=== PATIENT | female | born 1985 | race Caucasian/White ===

== ENCOUNTER → 2016-10-07 | Outpatient (CLI) | payer OTHER ==
[~2016-10-07] MED LIST: BUPR8MIS SL; FAMO20TA9 PO; LEVE500T13 PO; METH10SO PO; MIRT30TA5 PO; MTR600X PO; PRENTAB26 PO
[2016-10-07 12:15] LABS: COMPLETE YES; EOS % 2.3 %; HEMATOCRIT 32.7 % (37-47); IG% 0.5 %; LYMPH % 28.9 %; LYMPH ABS # 1.27 K/uL (1.2-3.4); MEAN CELL VOLUME 93.2 fL (80-100); MEAN CORPUSCULAR HEMOGLOBIN 33.3 pg (25-34); MEAN CORPUSCULAR HGB CONC 35.8 g/dl (32-36); MEAN PLATELET VOLUME 10.2 fL (7.4-10.4); MONO % 7.3 %; PLATELET COUNT 251 K/uL (130-400); RED BLOOD COUNT 3.51 M/uL (4.2-5.4); WHITE BLOOD COUNT 4.39 K/uL (4.8-10.8)
[2016-10-07 14:09] LABS: URINE APPEARANCE CLEAR (CLEAR); URINE BILIRUBIN NEG (NEG); URINE COLOR YELLOW; URINE NITRITE NEG (NEG); URINE SPECIFIC GRAVITY 1.019 (1.000-1.030); UROBILINOGEN NEG (NEG)
[2016-10-07 14:27] LABS: MANUAL MICROSCOPIC REQUIRED? NO; REVIEW REQ? NO
[2016-10-11 10:23] LABS: CHLAMYDIA TRACH RNA*** NOT DETECTED (NOT DETECTED); GC (NEIS GONORRHOEAE)RNA** NOT DETECTED (NOT DETECTED)
[2016-10-11 14:34] LABS: HEPATITIS C RNA TMA QUAL Not detected
== END | disposition home or self-care (01) ==
LOC: C.LAB1850 10:56
PROVIDERS: ATTEND Obstetrics & Gynecology
DX: O09.899 Supervision of other high risk pregnancies, unspecified trimester (principal)

== ENCOUNTER → 2016-11-16 | Outpatient (CLI) | payer OTHER | END | disposition home or self-care (01) | LOC: C.LAB1850 12:55 | PROVIDERS: ATTEND Obstetrics & Gynecology | DX: O09.42 Supervision of pregnancy with grand multiparity, second trimester (principal) ==

== ENCOUNTER → 2016-11-16 | Outpatient (CLI) | payer OTHER | END | disposition home or self-care (01) | LOC: C.LAB1850 13:37 | PROVIDERS: ATTEND Obstetrics & Gynecology | DX: A49.02 Methicillin resistant Staphylococcus aureus infection, unspecified site (principal) ==

== ENCOUNTER 2016-11-30 13:23 | Emergency (ER) | payer OTHER ==
[~2016-11-30] VITALS: Ht 165.1 cm; Wt 58.8 kg
[~2016-11-30 13:23] MED LIST changes: -FAMO20TA9 PO; -LEVE500T13 PO; -METH10SO PO; -PRENTAB26 PO
[2016-11-30 13:34] VITALS: TEMP 37.2; Ht 165.1 cm; Wt 58.8 kg
[2016-11-30 13:42] VITALS: O2SAT 100
[2016-11-30] MEDS ORDERED: SODIUM CHLORIDE 0.9% 1000ML 1,000 ML IV ONE (14:00)
--- NOTE | 2016-11-30 14:04 | EMERGENCY ROOM VISIT NOTE ---
History First contact with patient: 13:42 Chief Complaint: SEIZURE Stated Complaint: SEIZURE Nursing Triage Summary: medic reports pt was at methadone clinic this am at 0900 to receive dose of meds. did test positiveyesterday for methamphetamines. pt is 5 months . reports lmp in march. goes to visit determined she is due in february. pt reports prior to seizure having neck pain denies any hx of seizures. 5 and para 3. friend at bedside witnessed seizure reports last 2 minutes. pt able to walk upon arrival to ed stood up from ambulance liter and walked to bed no stumbling or unsteady gait noted. pt vomited prior to methadone. pt is alert and answer all questions appropriately History of Present Illness The patient is a 31 year old female who presents to the Emergency Room with complaints of a seizure that happened prior to arrival. The patient does not recall any of the event. Her significant other is at the bedside. He reports that she lost consciousness and her arms and legs were shaking. The seizure itself lasted approximately 2 minutes. There is no urinary or bowel incontinence. He does note that she was very confused for at least 20 minutes after the seizure. The patient is currently 6 months . She denies any vaginal bleeding or abdominal cramping. She denies any drug use. The patient does have a history of heroin and opiate abuse. She reportedly stopped abusing 3 months ago, and has been going to a methadone clinic since. She did go to the methadone clinic this morning. She reportedly tested positive for methamphetamines. The patient currently denies any pain. She is feeling somewhat nauseated. Review of Systems 10 system review performed and negative unless noted in HPI or below Past Medical/Surgical History Medical Problems: (1) Active labor at term (2) History of narcotic addiction (3) Tobacco use Surgical Problems: (1) Patient desires vaginal after section () (2) Previous section Reportedly healthy Family History Patient denies any family medical history. Social History Smoking Status: Current Every Day Smoker Alcohol Use: occasionally Drug Use: none Marital Status: single Occupation Status: unemployed Current/Historical Medications Scheduled Methadone Hcl (Methadone Hcl), 56 ML PO DAILY Multivit/Min/Iron/Fol Ac/Pren ( Vitamin), 1 TAB PO DAILY Scheduled PRN Famotidine (Pepcid), 20 MG PO DAILY PRN for Indigestion Physical Exam Vital Signs Date Time Temp Pulse Resp B/P (MAP) Pulse Ox O2 Delivery O2 Flow Rate FiO2 11/30/16 15:18 81 18 99/55 100 Room Air 11/30/16 13:42 89 11/30/16 13:42 100 Room Air 11/30/16 13:34 37.2 104 18 134/76 100 Room Air Physical Exam VITALS: Vitals are noted on the nurse's note and reviewed by myself. Vital signs stable. GENERAL: 31-year-old female, in no acute distress, nondiaphoretic, well- developed well-nourished. SKIN: The skin was without rashes, erythema, edema, or bruising. HEAD: Normocephalic atraumatic. EARS: External auditory canals clear, tympanic membranes pearly patel without erythema or effusion bilaterally. EYES: Pupils equal round and reactive to light and accommodation. Conjunctivae without injection, sclerae without icterus. Extraocular movements intact. MOUTH: Mucous membranes moist. Tonsils are not enlarged. Pharynx without erythema or exudate. Uvula midline. Airway patent. Tongue does not deviate. NECK: Supple without nuchal rigidity. No lymphadenopathy. Cervical spine is nontender. No JVD. HEART: Regular rate and rhythm without murmurs gallops or rubs. LUNGS: Clear to auscultation bilaterally without wheezes, rales or rhonchi. No accessory muscle use. ABDOMEN: Gravid, Positive bowel sounds x 4.Soft, nontender, without organomegaly. No guarding or rebound tenderness. MUSCULOSKELETAL: No muscle atrophy, erythema, or edema noted. Strength 5/5 throughout. NEURO: Patient was alert and oriented to person place and time. Normal sensation to touch. No focal neurological deficits. Medical Decision & Procedures ER Provider Diagnostic Interpretation: HEAD WITHOUT CONTRAST (CT) CLINICAL HISTORY: 31 years-old Female with seizure. Acute seizure TECHNIQUE: Multiple axial CT images of the head were obtained without contrast. A dose lowering technique was utilized adhering to the principles of ALARA. CT DOSE: 638.56 mGycm COMPARISON: CT head 11/11/2007. FINDINGS: No acute intracranial hemorrhage, midline shift, mass, large territorial ischemia or abnormal extra-axial collection. The calvarium is intact. The paranasal sinuses, mastoid air cells, and middle ear cavities are clear. IMPRESSION: No acute intracranial abnormality. Laboratory Results 11/30/16 14:20 Red Blood Count 3.96, Mean Corpuscular Volume 91.4, Mean Corpuscular Hemoglobin 33.1, Mean Corpuscular Hemoglobin Concent 36.2, Mean Platelet Volume 10.5, Neutrophils (%) (Auto) 84.2, Lymphocytes (%) (Auto) 10.8, Monocytes (%) (Auto) 3.6, Eosinophils (%) (Auto) 0.7, Basophils (%) (Auto) 0.3, Neutrophils # (Auto) 5.77, Lymphocytes # (Auto) 0.74, Monocytes # (Auto) 0.25, Eosinophils # (Auto) 0.05, Basophils # (Auto) 0.02 11/30/16 14:20 Test 11/30/16 14:08 11/30/16 14:20 Urine Color YELLOW Urine Appearance CLEAR (CLEAR) Urine pH 7.5 (4.5-7.5) Urine Specific Dewitt 1.017 (1.000-1.030) Urine Protein NEG (NEG) Urine Glucose (UA) NEG (NEG) Urine Ketones NEG (NEG) Urine Occult Blood NEG (NEG) Urine Nitrite NEG (NEG) Urine Bilirubin NEG (NEG) Urine Urobilinogen NEG (NEG) Urine Leukocyte Esterase NEG (NEG) Urine Opiates Screen NEG (NEG) Urine Methadone, Qualitative POS (NEG) Urine Barbiturates NEG (NEG) Urine Phencyclidine (PCP) Level NEG (NEG) Ur Amphetamine/Methamphetamine NEG (NEG) MDMA (Ecstasy) Screen NEG (NEG) Urine Benzodiazepines Screen NEG (NEG) Urine Cocaine Metabolite NEG (NEG) Urine Marijuana (THC) NEG (NEG) White Blood Count 6.86 K/uL (4.8-10.8) Red Blood Count 3.96 M/uL (4.2-5.4) Hemoglobin 13.1 g/dL (12.0-16.0) Hematocrit 36.2 % (37-47) Mean Corpuscular Volume 91.4 fL (80-100) Mean Corpuscular Hemoglobin 33.1 pg (25-34) Mean Corpuscular Hemoglobin Concent 36.2 g/dl (32-36) Platelet Count 230 K/uL (130-400) Mean Platelet Volume 10.5 fL (7.4-10.4) Neutrophils (%) (Auto) 84.2 % Lymphocytes (%) (Auto) 10.8 % Monocytes (%) (Auto) 3.6 % Eosinophils (%) (Auto) 0.7 % Basophils (%) (Auto) 0.3 % Neutrophils # (Auto) 5.77 K/uL (1.4-6.5) Lymphocytes # (Auto) 0.74 K/uL (1.2-3.4) Monocytes # (Auto) 0.25 K/uL (0.11-0.59) Eosinophils # (Auto) 0.05 K/uL (0-0.5) Basophils # (Auto) 0.02 K/uL (0-0.2) RDW Standard Deviation 42.4 fL (36.4-46.3) RDW Coefficient of Variation 12.6 % (11.5-14.5) Immature Granulocyte % (Auto) 0.4 % Immature Granulocyte # (Auto) 0.03 K/uL (0.00-0.02) Anion Gap 10.0 mmol/L (3-11) Est Creatinine Clear Calc Drug Dose 102.9 ml/min Estimated GFR () 131.9 Estimated GFR (Non- 113.8 BUN/Creatinine Ratio 6.1 (10-20) Calcium Level 9.6 mg/dl (8.5-10.1) Magnesium Level 2.1 mg/dl (1.8-2.4) Total Bilirubin 0.3 mg/dl (0.2-1) Aspartate Amino Transf (AST/SGOT) 18 U/L (15-37) Alanine Aminotransferase (ALT/SGPT) 13 U/L (12-78) Alkaline Phosphatase 91 U/L (45-117) Total Protein 7.2 gm/dl (6.4-8.2) Albumin 3.5 gm/dl (3.4-5.0) Globulin 3.7 gm/dl (2.5-4.0) Albumin/Globulin Ratio 0.9 (0.9-2) Medications Administered Medications (Trade) Dose Ordered Sig/Zayra Route Start Time Stop Time Status Last Admin Dose Admin Sodium Chloride 1,000 ml @ 999 mls/hr Q1H1M ONCE IV 11/30/16 14:00 11/30/16 15:00 DC 11/30/16 14:00 999 MLS/HR ED Course Patient was seen and examined Vital signs including blood pressure were reviewed medications list was verified with patient Labs were obtained, and a saline lock was established Imaging was performed and reviewed Upon evaluation, the patient was resting comfortably in bed. She has had no further seizure activity in the emergency department. We discussed the results of the workup. She voices understanding. She was advised to follow-up with her primary care physician. She is comfortable with this plan. I reviewed discharge instructions the patient. They voiced understanding and had no further questions. Medical Decision Differential diagnosis: New onset seizures, intracranial abnormality, illicit drug use, eclampsia, withdrawal This patient is a 31-year-old female that presents to the emergency department with seizure-like activity prior to arrival. The patient is 26 weeks . She denies any lower abdominal cramping or bleeding. She is still feeling active movement from the baby. heart tones are in the 140s. There are no history of seizures according to the patient or the patient's significant other. On my exam, she was neurologically intact. She did not seem to have any post ictal confusion. CT of the head was performed. This was negative for any acute findings. She does have a history of illicit drug use. Drug screen was performed and consistent with methadone, which she is prescribed. She denies any alcohol use. I did not suspect alcohol withdrawal. Given that this is an isolated incident, I did not find it necessary to start her on medications. She was advised to follow-up with her primary care physician within 48 hours for a recheck. She was also notified of her driving restrictions (she does not have a [employer] driver's license). This chart was completed in part utilizing [email or web address] Speech Voice Recognition software. Attempts were made to minimize the grammatical errors, random word insertions, pronoun errors and incomplete sentences. Any formal questions or concerns about the content, text or information contained within the body of this dictation should be directly addressed to the provider for clarification. Medication Reconcilliation Current Medication List: was personally reviewed by me Blood Pressure Screening Patient's blood pressure: Normal blood pressure Impression Primary Impression: Seizure Departure Information Dispostion Home / Self-Care Condition GOOD Referrals Jose Luciano M.D. (PCP) Patient Instructions ED Seizure New Onset Unk Cause, My [facility] Additional Instructions You were evaluated in the emergency department for a seizure that was witnessed by your significant other. PLEASE DO NOT DRIVE OR OPERATE MACHINERY UNTIL YOU ARE CLEARED BY YOUR DOCTOR Please follow-up with your primary care physician within the next 2-3 days Please return to the emergency department with any new or recurrent symptoms
[2016-11-30 14:32] LABS: URINE APPEARANCE CLEAR (CLEAR); URINE BILIRUBIN NEG (NEG); URINE COLOR YELLOW; URINE NITRITE NEG (NEG); URINE PH 7.5 (4.5-7.5); URINE SPECIFIC GRAVITY 1.017 (1.000-1.030); UROBILINOGEN NEG (NEG)
[2016-11-30 14:33] LABS: MANUAL MICROSCOPIC REQUIRED? NO; REVIEW REQ? NO
[2016-11-30 14:51] LABS: BUN/CREATININE RATIO 6.1 (10-20); CALCIUM 9.6 mg/dl (8.5-10.1); CREATININE 0.7 mg/dl (0.60-1.20); MAGNESIUM 2.1 mg/dl (1.8-2.4); POTASSIUM 3.7 mmol/L (3.5-5.1)
[2016-11-30 14:54] LABS: ALB/GLOB RATIO 0.9 (0.9-2)
--- NOTE | 2016-11-30 14:54 | DIAGNOSTIC IMAGING REPORT ---
HEAD WITHOUT CONTRAST (CT) CLINICAL HISTORY: 31 years-old Female with seizure. Acute seizure TECHNIQUE: Multiple axial CT images of the head were obtained without contrast. A dose lowering technique was utilized adhering to the principles of ALARA. CT DOSE: 638.56 mGycm COMPARISON: CT head 11/11/2007. FINDINGS: No acute intracranial hemorrhage, midline shift, mass, large territorial ischemia or abnormal extra-axial collection. The calvarium is intact. The paranasal sinuses, mastoid air cells, and middle ear cavities are clear. IMPRESSION: No acute intracranial abnormality. The above report was generated using voice recognition software. It may contain grammatical, syntax or spelling errors. Electronically signed by: Alec Kuhn M.D. 11/30/2016 2:53 PM Dictated Date/Time: 11/30/2016 2:51 PM
[2016-11-30 14:57] LABS: BENZODIAZEPINE, URINE NEG (NEG); COCAINE,URINE NEG (NEG); PHENCYCLIDINE, URINE NEG (NEG)
[2016-11-30 15:09] LABS: BASO % 0.3 %; BASO ABS # 0.02 K/uL (0-0.2); COMPLETE YES; EOS % 0.7 %; HEMATOCRIT 36.2 % (37-47); IG% 0.4 %; LYMPH % 10.8 %; LYMPH ABS # 0.74 K/uL (1.2-3.4); MEAN CELL VOLUME 91.4 fL (80-100); MEAN CORPUSCULAR HEMOGLOBIN 33.1 pg (25-34); MEAN CORPUSCULAR HGB CONC 36.2 g/dl (32-36); MEAN PLATELET VOLUME 10.5 fL (7.4-10.4); MONO % 3.6 %; NEUT % 84.2 %; PLATELET COUNT 230 K/uL (130-400); RED BLOOD COUNT 3.96 M/uL (4.2-5.4); WHITE BLOOD COUNT 6.86 K/uL (4.8-10.8)
[2016-11-30 15:18] VITALS: BP 99/55; PULSE 81; O2SAT 100
[2016-11-30] MEDS ORDERED: METH10SO PO (15:20)
[2016-11-30] MEDS ORDERED: PRENTAB26 PO (20:27)
[2016-11-30] MEDS ORDERED: FAMO20TA9 PO (20:42)
[2016-12-02] MEDS ORDERED: LEVE500T13 PO (17:49)
[2016-12-03 14:05] LABS: METHADONE METABOLITE 10500 NG/ML (CUTOFF=100); METHADONE VERIFIC 2410 NG/ML (CUTOFF=100)
== END 2016-11-30 15:48 | disposition home or self-care (01) ==
LOC: EDBD 13:23 → C.EDC 13:24
DX: R56.9 Unspecified convulsions (principal); O99.352 Diseases of the nervous system complicating pregnancy, second trimester; Z3A.26 26 weeks gestation of pregnancy; O99.332 Smoking (tobacco) complicating pregnancy, second trimester; F17.200 Nicotine dependence, unspecified, uncomplicated; F11.11 Opioid abuse, in remission

== ENCOUNTER 2016-11-30 16:01 | Inpatient (IN) | payer OTHER ==
[~2016-11-30] VITALS: Ht 165.1 cm; Wt 59.2 kg
[~2016-11-30 16:01] MED LIST changes: +METH10SO PO
[2016-11-30] MEDS ORDERED: LEVETIRACETAM IV 1,000 MG in DEXTROSE 5% 100ML 100 ML IV ONE (18:00)
--- NOTE | 2016-11-30 18:53 | EMERGENCY ROOM VISIT NOTE ---
History First contact with patient: 16:39 Chief Complaint: SEIZURE Stated Complaint: SEIZURE Nursing Triage Summary: Pt arrives POV s/p seizure reported by keyur to have lasted approx 3 mins. Pt drooling upon arrival when pt was assisted out of her vehicle. Pt seen here earlier today for a seizure, was discharged, got approx 10 mins from the hospital when she seized again. Denies injury or pain. Denies hx of seizures prior to today. Pt reports that she is 6 mos . History of Present Illness The patient is a 31 year old female who presents to the Emergency Room with complaints of another seizure occurring after the patient was discharged from the emergency department approximately half hour ago. they got approximately [address] when the patient began shaking all over and went unresponsive for approximately 2 minutes. She was confused afterwards. The patient is somewhat drowsy. So the history is taken from the patient's significant other who is at the bedside. The patient was in the emergency department earlier today for a new onset of seizure. A workup was performed. No medications were started. The patient was advised to have close follow-up with her primary care physician. The patient denies any illicit drug use. She is currently taking methadone. She is 26 weeks . She reports having regular care. There is no loss of bowel or bladder function during the event today. She denies any alcohol use. Review of Systems 10 system review performed and negative unless noted in HPI or below Past Medical/Surgical History Medical Problems: (1) Active labor at term (2) History of narcotic addiction (3) Tobacco use Surgical Problems: (1) Patient desires vaginal after section () (2) Previous section Heroin abuse Social History Smoking Status: Current Every Day Smoker Alcohol Use: occasionally Drug Use: none Marital Status: single Occupation Status: unemployed Current/Historical Medications Scheduled Methadone Hcl (Methadone Hcl), 56 ML PO DAILY Multivit/Min/Iron/Fol Ac/Pren ( Vitamin), 1 TAB PO DAILY Scheduled PRN Famotidine (Pepcid), 20 MG PO DAILY PRN for Indigestion Physical Exam Vital Signs Date Time Temp Pulse Resp B/P (MAP) Pulse Ox O2 Delivery O2 Flow Rate FiO2 11/30/16 18:37 83 16 103/62 97 Room Air 11/30/16 16:37 93 11/30/16 16:20 Room Air 11/30/16 16:11 37.3 97 18 118/63 98 Room Air Physical Exam VITALS: Vitals are noted on the nurse's note and reviewed by myself. Vital signs stable. GENERAL: 31-year-old female drowsy in appearance SKIN: The skin was without rashes, erythema, edema, or bruising. HEAD: Normocephalic atraumatic. EYES: Pupils equal round and reactive to light and accommodation. Conjunctivae without injection, sclerae without icterus. Extraocular movements intact. MOUTH: Mucous membranes slightly dry no trauma to the oral mucosa NECK. Cervical spine is nontender. No JVD. HEART: Tachycardic, regular rhythm without murmurs gallops or rubs. LUNGS: Clear to auscultation bilaterally without wheezes, rales or rhonchi. No accessory muscle use. ABDOMEN: Gravid. Positive bowel sounds x 4.Soft, nontender, without organomegaly. No guarding or rebound tenderness. MUSCULOSKELETAL: No muscle atrophy, erythema, or edema noted. Strength 5/5 throughout. NEURO: Patient was alert and oriented to person and place. The patient is confused on the date. Cerebellar function intact. Medical Decision & Procedures Laboratory Results Test 11/30/16 18:49 Ethyl Alcohol mg/dL < 3.0 mg/dl (0-3) Medications Administered Medications (Trade) Dose Ordered Sig/Zayra Route Start Time Stop Time Status Last Admin Dose Admin Levetiracetam 1000 mg/Dextrose 110 ml @ 440 mls/hr ONE ONCE IV 11/30/16 18:00 11/30/16 18:14 DC 11/30/16 18:53 440 MLS/HR ED Course The patient was seen and examined The case was discussed with Dr. Bray from neurology, Dr. Solis from [employer] She was given Keppra 1000 mg IV The case was discussed with the hospitalist who agreed to admit the patient for further workup Medical Decision Differential diagnosis: New onset seizures, intracranial abnormality, illicit drug use, eclampsia, withdrawal This patient return to the emergency department today for a second episode of seizure-like activity. On my exam, she was somewhat drowsy. She also was confused on the date. This is likely consistent with postictal confusion. She had a workup earlier today in the emergency department; therefore, no further labs or imaging studies were ordered. Her heart tones are still in the 140s. I did not suspect eclampsia. The patient's vital signs were stable. There is no proteinuria. The case was discussed with neurology, gynecology and the hospitalist group. It was recommended that she start Keppra. She was given a loading dose in the emergency department. She will need to be admitted for further workup and treatment of her seizures and possibly monitoring. This chart was completed in part utilizing [employer] Speech Voice Recognition software. Attempts were made to minimize the grammatical errors, random word insertions, pronoun errors and incomplete sentences. Any formal questions or concerns about the content, text or information contained within the body of this dictation should be directly addressed to the provider for clarification. Blood Pressure Screening Patient's blood pressure: Normal blood pressure Consults Consulting Physician: dr. bray, dr. millard, dr solis Impression Primary Impression: Seizure Departure Information Referrals Jose Luciano M.D. (PCP) Patient Instructions My [facility]
[2016-11-30 19:49] VITALS: Ht 165.1 cm; Wt 59.2 kg
[2016-11-30] MEDS ORDERED: PRENTAB26 PO (20:27)
[2016-11-30] MEDS ORDERED: FAMOTIDINE 20 MG TAB PO PRN (20:30)
[2016-11-30] MEDS ORDERED: LORAZEPAM INJ 1 MG in SYRINGE 0.5 ML IV PRN (20:30)
[2016-11-30] MEDS ORDERED: FAMO20TA9 PO (20:42)
--- NOTE | 2016-11-30 20:51 | History and Physical ---
History & Physical Date & Time of Service: Nov 30, 2016 at 19:40 . Chief Complaint: seizures . Primary Care Physician: Jose Luciano M.D. . History of Present Illness Source: patient, family, clinic records, hospital records 31-year-old female followed by Dr. Luciano for Family Medicine. 26-weeks - [place] [facility]. has been on complicated- no hyperglycemia or elevated blood pressures. She has had GERD and occasional nausea and vomiting throughout her . Vomited this morning. Today around noon she had a generalized tonic-clonic seizure witnessed by her fianc. Episode lasted for about 4 minutes. No associated tongue biting or incontinence of urine. She appeared be postictal for a while after the event. Came to the ED for evaluation. Labs were unremarkable. Head CT was negative. Patient was released from the ED. Round 16:00 she had another seizure, similar to the episode earlier in the day. No fever. Mild headache after seizures. Mild neck pain after seizures. No photophobia. History of narcotic addiction, currently in methadone program. Denies current use of recreational drugs. No recent alcohol intake. No history of head injury. No prior history of seizures. No family history of seizures. . Past Medical/Surgical History Chronic and Resolved Medical Problems: (1) History of narcotic addiction Permanent Comment: currently in methadone program Status: Chronic (2) Tobacco use Status: Chronic Surgical Problems: (1) Previous section Status: Chronic . Family History Patient reports no medical problems among close relatives. . Social History Smoking Status: Current Every Day Smoker Alcohol Use: none Drug Use: heroin (in past) Marital Status: single Housing status: lives with family Occupational Status: unemployed Immunizations History of Influenza Vaccine: Unknown History of Tetanus Vaccine?: Unknown History of Pneumococcal: Unknown History of Hepatitis B Vaccine: Unknown Multi-Drug Resistant Organisms History of MDRO: No Allergies Coded Allergies: Brompheniramine (Verified Allergy, Mild, RASH, 11/30/16) Phenylpropanolamine (Verified Allergy, Mild, RASH, 11/30/16) Home Medications Scheduled Methadone Hcl (Methadone Hcl), 56 ML PO DAILY Multivit/Min/Iron/Fol Ac/Pren ( Vitamin), 1 TAB PO DAILY Scheduled PRN Famotidine (Pepcid), 20 MG PO DAILY PRN for Indigestion Review of Systems Constitutional: No fever, No weight loss Eyes: No worsening of vision ENT: No nasal symptoms, No sore throat Respiratory: No cough, No shortness of breath Cardiovascular: No chest pain, No edema Abdomen: + nausea, + vomiting, No pain Musculoskeletal: No joint pain Genitourinary - Female: No dysuria, No hematuria Neurologic: + problem reported (as noted in HPI) Endocrine: No excessive thirst, No excessive urination Hematologic / Lymphatic: No abnormal bleeding/bruising Integumentary: No rash, No new/changing skin lesions Physical Exam Vital Signs Date Time Temp Pulse Resp B/P (MAP) Pulse Ox O2 Delivery O2 Flow Rate FiO2 11/30/16 20:15 37.3 83 16 103/62 97 11/30/16 19:59 83 16 103/62 97 Room Air 11/30/16 19:49 Room Air 11/30/16 18:37 83 16 103/62 97 Room Air 11/30/16 16:37 93 11/30/16 16:20 Room Air 11/30/16 16:11 37.3 97 18 118/63 98 Room Air General Appearance: WD/WN, no apparent distress Head: normocephalic, atraumatic Eyes: normal inspection, PERRL, EOMI, sclerae normal (conjunctivae pink) ENT: hearing grossly normal, pharynx normal Neck: supple, no adenopathy, thyroid normal, no JVD, trachea midline Respiratory/Chest: lungs clear, no respiratory distress, no accessory muscle use Cardiovascular: regular rate, rhythm, no edema, no gallop, no JVD, + systolic murmur (I/ systolic murmur at base) Abdomen/GI: normal bowel sounds, non tender, soft, no organomegaly, + pertinent finding (gravid uterus) Extremities/Musculoskelatal: normal inspection, no calf tenderness, no pedal edema Neurologic/Psych: hospitality manager II-XII nml as tested (PERRL, EOMI, no facial palsy, no dysarthria) Skin: normal color, warm/dry, no rash Lymphatic: no adenopathy (cervical) Diagnostics Laboratory Results Item Value Date Time Hemoglobin 13.1 g/dL 11/30/16 1420 White Blood Count 6.86 K/uL 11/30/16 1420 Platelet Count 230 K/uL 11/30/16 1420 Sodium Level 138 mmol/L 11/30/16 1420 Potassium Level 3.7 mmol/L 11/30/16 1420 Chloride Level 107 mmol/L 11/30/16 1420 Carbon Dioxide Level 21 mmol/L 11/30/16 1420 Creatinine 0.70 mg/dl 11/30/16 1420 Random Glucose 117 mg/dl H 11/30/16 1420 Calcium Level 9.6 mg/dl 11/30/16 1420 Magnesium Level 2.1 mg/dl 11/30/16 1420 Total Bilirubin 0.3 mg/dl 11/30/16 1420 Aspartate Amino Transf (AST/SGOT) 18 U/L 11/30/16 1420 Alanine Aminotransferase (ALT/SGPT) 13 U/L 11/30/16 1420 Alkaline Phosphatase 91 U/L 11/30/16 1420 Total Protein 7.2 gm/dl 11/30/16 1420 Albumin 3.5 gm/dl 11/30/16 1420 Globulin 3.7 gm/dl 11/30/16 1420 Urine Color YELLOW 11/30/16 1408 Urine Appearance CLEAR 11/30/16 1408 Urine pH 7.5 11/30/16 1408 Urine Specific [place] 1.017 11/30/16 1408 Urine Protein NEG 11/30/16 1408 Urine Glucose (UA) NEG 11/30/16 1408 Urine Ketones NEG 11/30/16 1408 Urine Occult Blood NEG 11/30/16 1408 Urine Nitrite NEG 11/30/16 1408 Urine Bilirubin NEG 11/30/16 1408 Urine Urobilinogen NEG 11/30/16 1408 Urine Leukocyte Esterase NEG 11/30/16 1408 Urine Opiates Screen NEG 11/30/16 1408 Urine Methadone, Qualitative POS H 11/30/16 1408 Urine Barbiturates NEG 11/30/16 1408 Urine Phencyclidine (PCP) Level NEG 11/30/16 1408 Ur Amphetamine/Methamphetamine Scrn NEG 11/30/16 1408 MDMA (Ecstasy) Screen NEG 11/30/16 1408 Urine Benzodiazepines Screen NEG 11/30/16 1408 Urine Cocaine Metabolite NEG 11/30/16 1408 Urine Marijuana (THC) NEG 11/30/16 1408 Ethyl Alcohol mg/dL < 3.0 mg/dl 11/30/16 1849 Diagnostic Radiology HEAD WITHOUT CONTRAST (CT) FINDINGS: No acute intracranial hemorrhage, midline shift, mass, large territorial ischemia or abnormal extra-axial collection. The calvarium is intact. The paranasal sinuses, mastoid air cells, and middle ear cavities are clear. IMPRESSION: No acute intracranial abnormality. The above report was generated using voice recognition software. It may contain grammatical, syntax or spelling errors. Electronically signed by: Alec Kuhn M.D. 11/30/2016 2:53 PM Dictated Date/Time: 11/30/2016 2:51 PM . Impression Assessment and Plan NEW-ONSET SEIZURES Etiology not apparent. No evidence of pre-eclampsia. No febrile illness. Normal electrolytes. Head CT negative. No recent use of alcohol or illicit drugs. Taking methadone regularly as prescribed. ED providers discussed case with Neurology. Anticonvulsant therapy with levetiracetam recommended and IV load give in ED. Start 500 mg BID. Folic acid supplementation recommended by Pharmacy. Check EEG. Consult Neuro. Patient is aware that she may not drive until seizure-free for 6 months. INTRAUTERINE 26 WKS Seen by Obstetrics in ED. Check heart tones q shift. NARCOTIC ADDICTION Continue usual dose of methadone. GERD Continue famotidine. HISTORY OF MRSA History of MRSA years ago. Nasal screen negative on 11/16/16. Recheck nasal screen. May stop contact isolation if MRSA screen neg x 2. VTE PROPHYLAXIS SCD's. Ambulate. DISPOSITION Admit to Telemetry Unit. Expected discharge to home. Family Medicine follow-up with Dr. Luciano. Obstetrics follow-up with [facility]. . Advanced Directives Existing Living Will: No Existing Power of Electronic Court Recorder: No VTE Prophylaxis VTE Risk Assessment Done? Y/N: Yes Risk Level: Moderate Given or contraindicated: SCD's
[2016-11-30] MEDS ORDERED: LORAZEPAM 2 MG/ML 1 ML VIAL IV PRN (21:15)
[2016-11-30] MEDS ORDERED: INFLUENZA ADMINISTRATION CHARGE ONE (21:30)
[2016-11-30] MEDS ORDERED: INFLUENZA VIRUS QUAD VACCINE 0.5 ML SYR IM. ONE (21:30)
--- NOTE | 2016-11-30 23:16 | GYNECOLOGICAL CONSULTATION ---
DATE OF CONSULTATION: 11/30/2016 CONSULTED BY: Steve Abdul MD CHIEF COMPLAINT: with seizures. HISTORY OF PRESENT ILLNESS: Gisell is a 31-year-old white female 4, para 2-0-1-3 with an EDC of 03/03/2017 based on a 15-week ultrasound, given a pretty unsure last menstrual period. She first presented for OB care at approximately 19 weeks. She had recently been incarcerated for theft but was home from incarceration. She had recently started on methadone therapy for prescription narcotic use. She does also have history of heroin use. She notes that she has been clean for several years. She also has a history of cocaine use, but none for the past year, denies pot use, denies taking any other illicit substances. She does have a history of MRSA recently. She has a history of depression that had worsened and had been on Remeron, gabapentin, and Klonopin prior to . She had stopped these medications with the and noted that she was actively seeing psych. She is likely to give this baby up for adoption. She is currently in reunification for her most recent child, Milagro. They are trying very hard to be clean so that they can be reunified. CYS is aware of this . The patient presented to the Emergency Department earlier today for a reported seizure. Per the patient's report, boyfriend not present to confirm, she was sitting on the couch and her boyfriend noted that she just kind of went out of it and then got really stiff and started to shake. She notes that she is unaware that she fell or hit anything during the course of this. She presented to the Emergency Room. Her vital signs on admission were 134/76, temperature 37.2, pulse 104, respirations 18. She had 2 blood pressures taken while in observation, and the other blood pressure was 99/55. Per the ED report on that admission, she did, per the boyfriend's report lose consciousness, the seizure lasted approximately 2 minutes, there was no urinary or bowel incontinence. He notes that she was confused for about 20 minutes after the seizure. By the time she got to the Emergency Department though she was pretty aware and alert. The patient was seen and evaluated in the ED. I was not part of this evaluation. Apparently they called neurology. They recommended no meds given this is isolated and was sent home. In the car on the way home, she had another seizure described similarly by the patient. Again, I cannot confirm with the . When she did arrive at the Emergency Room, she did appear postictal. The Emergency Department staff called neurology, who recommended IV Keppra. Keppra was recommended for onset of action being quicker than Lamictal. We have had patients on both in . When I entered the room, the patient appears to be resting. She is easily arousable. I asked her how she was feeling, she says she felt a little tired and out of it. She is alert and oriented. She notes that she was having no problems with the prior to all of this happening. She was noting positive movement, no contractions, vaginal bleeding or leakage of fluid. Additionally, she denies headaches, vision changes, significant nausea and vomiting, right upper quadrant pain, significant edema. She notes she has had no bowel or bladder issues. She was asked about drug use. She denies using any drugs at all. Since she has been , she notes she has been on her methadone for 3 months and is regularly, going to the methadone clinic. She notes she denies taking heroin or opiates or cocaine. She also denies alcohol use completely. She does admit to smoking approximately half a pack of cigarettes a day. She notes she continues to strive to be clean. She notes that they are likely going to give this baby up for adoption. She is 26 weeks and 4 days by her ultrasound dating. Other OB history: She is Rh negative. She does have a history of MRSA cultured from a boil. She notes that she was treated. On 11/16/2016, she had a MRSA swab that was negative for MRSA, this was a nasal swab. In her drug screen at her first visit, was positive only for methadone. PAST OBSTETRICAL AND GYNECOLOGICAL HISTORY: This is her fourth . Her first in June of 2003 was a section for malpresentation to deliver a 6 pound 7 ounce female. In May of 2010, she had a vaginal after delivery of a 5 pound 8 ounce male. This was approximately 36 weeks. This was premature labor due to drug use benzodiazepines and pain pills and this baby was adopted out. In February 2015, she had her third , delivering via a 6 pound 4 ounce female. This is the baby, Ilya, who they are currently trying to reunify with. She denies history of sexually transmitted disease and abnormal Pap smears. She does have a history of depression. ALLERGIES: DIMETAPP. MEDICATIONS: vitamin, which she notes she is taking regularly and methadone. She denies any other medications on a regular basis. PAST MEDICAL HISTORY: Significant for drug use, depression, and chickenpox. She denies thyroid disease, asthma, heart disease, heart murmur, diabetes, kidney or liver dysfunction. MRSA in a boil. SOCIAL HISTORY: As described above. She does admit to a half pack of cigarettes a day. Denies alcohol and denies other drug use including benzodiazepines, cocaine, heroin, narcotics. She does have a history of use of benzodiazepines prior to her incarceration, but none since her incarceration. SURGICAL HISTORY: None. PHYSICAL EXAMINATION: GENERAL: This is a well-developed, well-nourished white female resting comfortably in bed. VITAL SIGNS: Current vitals are blood pressure 118/63, temperature 37.3, pulse 93, respirations 18, satting 98% on room air. NECK: Supple without thyromegaly or lymphadenopathy. ABDOMEN: Soft, nontender, nondistended. There is a palpable uterus approximately 4-5 fingerbreadths above the umbilicus. It is mobile and nontender. There is no right upper quadrant tenderness. There is no epigastric tenderness. EXTREMITIES: Show no edema. DTRs are +1/2 bilaterally. There is no clonus. PELVIC: Deferred. heart tones done in the Emergency Department were in the 140s. DATA: Her blood type is A negative, antibody screen negative, rubella immune, RPR nonreactive, hepatitis B negative, HIV negative. Her initial HCV was preliminary positive, but the hepatitis C RNA qualitative was not detected, so she is negative, chlamydia and gonorrhea cultures were negative. She has not yet done a Glucola. Her labs on her first Emergency Department visit are as noted above. It is important to note that her liver functions, creatinine, and platelets are all normal. ASSESSMENT: Gisell is a 31-year-old white female 4, para 2-1-0-3, with an estimated date of confinement of 03/03/2017 making her 26 and 4/7th weeks today. She has had 2 seizures in the last 12 hours. I do not think that these are eclamptic seizures given the fact that she has completely normal blood pressures and her labs are all normal. The likelihood that this is eclampsia is quite unlikely. The seizures could be related to possible drug use, possible withdrawal of a possible drug, possible alcohol use, or new onset seizures of unknown origin. The best thing to do for this patient is to control her seizures and this will be the best thing for the . She will also need to continue her methadone dose as prescribed by her physician, which appears to be 58 mg daily, last dose this morning. She should also continue her vitamins. We would recommend evaluation by neurology to determine the best treatment. It sounds like she has already had a start of IV Keppra and that will likely be the medication that she will be continued on. Given the fact that the patient had 2 seizures in 1 day, she probably needs to be admitted for observation. Kindly, [facility] hospitalist, Dr. Abdul, will be admitting her into a bed for observation. She should have heart tones q. shift which we can arrange to have our nurses come and do for you. Certainly with a seizure there will be a decrease in oxygenation to the baby, but this should recover quite quickly after the discontinuation of the seizure and so treating her seizures, as you would treat her if she were not ,would be our recommendation. If you have any questions about medications that we can help with, we would be happy to do so and we will follow with you as the patient remains hospitalized. Please do not hesitate to call us with any questions. YOVANA
[2016-12-01] VITALS (8 sets, daily range): BP systolic 82–111; BP diastolic 48–69; PULSE 58–89; TEMP 36.4–36.8; O2SAT 95–100
[2016-12-01] MEDS ORDERED: ONDANSETRON INJ 2 MG/ML 2 ML VIAL IV PRN (04:00)
[2016-12-01] MEDS ORDERED: SODIUM CHLORIDE 0.9% 1000ML 1,000 ML IV SCH (04:00)
--- NOTE | 2016-12-01 07:40 | OB/GYN Progress Note ---
MEAT INSPECTOR Progress Note Date of Service Dec 01, 2016. Subjective conversation w/ patient, physical exam, lab review Ambulation: ambulating normally Voiding: no voiding problems Diet Tolerance: Clear Liquids Notes: Patient notes no acute events overnight. Notes no seizure activity. Notes no abel/vision changes/ruq pain/swelling. Notes she has had some increased nausea, ? related to meds?. She notes +fm. no ctx/lof/vb. Objective Vital Signs Date Time Temp Pulse Resp B/P (MAP) Pulse Ox O2 Delivery O2 Flow Rate FiO2 12/01/16 04:00 98/69 (79) 12/01/16 04:00 Room Air 12/01/16 04:00 110/64 (79) 12/01/16 04:00 36.8 85 17 105/64 (78) 98 Room Air 12/01/16 00:29 36.6 89 16 111/61 (78) 95 Room Air 12/01/16 00:01 Room Air 11/30/16 20:15 37.3 83 16 103/62 97 11/30/16 20:00 Room Air 11/30/16 19:59 83 16 103/62 97 Room Air 11/30/16 19:49 Room Air 11/30/16 18:37 83 16 103/62 97 Room Air 11/30/16 16:37 93 11/30/16 16:20 Room Air 11/30/16 16:11 37.3 97 18 118/63 98 Room Air Physical Exam General Appearance: WELL-APPEARING, WD/WN, NO APPARENT DISTRESS Abdomen: non tender, soft Fundus: Non-Tender, Relation to Umbilicus (about 4 above, soft, nontender) Extremities: non-tender, normal inspection, no pedal edema (nl dtrs, no clonus) fht in 11-7 shift were 150 Laboratory Results Last 24 Hours Test 11/30/16 18:49 Ethyl Alcohol mg/dL < 3.0 mg/dl Assessment and Plan Continue Routine Care: HD# 1. IUP at 26 5/7 weeks with new onset seizures. Does not appear to be eclampsia given nl blood pressure, nl labs and lack of symptoms of preeclampsia. Await neurology recommendations. No intervention needed from ob standpoint at this point. will continue to follow.
[2016-12-01] MEDS: LEVETIRACETAM 500 MG TAB PO SCH ×2 (08:20→19:59)
[2016-12-01] MEDS: PRENATAL VITAMIN TAB PO SCH (08:21)
[2016-12-01] MEDS: METHADONE PO SCH (08:22)
[2016-12-01] MEDS: METHADONE ORAL SOLN 2 MG/1ML PO SCH (08:22)
[2016-12-01] MEDS ORDERED: PRENATAL VITAMIN TAB PO SCH (09:00)
[2016-12-01 09:11] LABS: BASO % 0.2 %; BASO ABS # 0.02 K/uL (0-0.2); COMPLETE YES; EOS % 0.4 %; HEMATOCRIT 34.3 % (37-47); IG% 0.7 %; LYMPH % 17.2 %; LYMPH ABS # 1.47 K/uL (1.2-3.4); MEAN CELL VOLUME 91.5 fL (80-100); MEAN CORPUSCULAR HEMOGLOBIN 31.7 pg (25-34); MEAN CORPUSCULAR HGB CONC 34.7 g/dl (32-36); MEAN PLATELET VOLUME 10.2 fL (7.4-10.4); MONO % 4.9 %; NEUT % 76.6 %; PLATELET COUNT 163 K/uL (130-400); RED BLOOD COUNT 3.75 M/uL (4.2-5.4); WHITE BLOOD COUNT 8.57 K/uL (4.8-10.8)
[2016-12-01 09:22] LABS: BUN/CREATININE RATIO 6.5 (10-20); CALCIUM 8.2 mg/dl (8.5-10.1); CREATININE 0.68 mg/dl (0.60-1.20); MAGNESIUM 1.9 mg/dl (1.8-2.4); POTASSIUM 3.2 mmol/L (3.5-5.1)
[2016-12-01] MEDS ORDERED: POTASSIUM CHLORIDE 20 MEQ TABCR PO ONE (12:30)
--- NOTE | 2016-12-01 13:02 | Progress Note ---
Medicine Progress Note Date & Time of Visit: Dec 01, 2016 at 12:50. Subjective patient seen resting in bed, sitting up, fiance at bedside comfortable, pleasant, oriented x 3 states she feels fine overall no recurrence of seizures since yesterday at the ER denies headache, dizziness, nausea/vomiting denies chest pain, dyspnea, abdominal pain, changes with urination/bowel movements, fever/chills good movement no other symptoms patient said she vomited at the methadone clinic yesterday after taking her methadone dose, not certain if she vomited the pill also admits to take Clonipin at least 1-2x a month for anxiety, last taken few days ago denies using any other substances, nor ingesting any medication or substance Objective Last 8 Hrs Date Time Temp Pulse Resp B/P (MAP) Pulse Ox O2 Delivery O2 Flow Rate FiO2 12/01/16 11:34 92/53 (66) 12/01/16 11:00 36.6 62 16 82/53 (63) 98 Room Air 12/01/16 09:12 97 Room Air 12/01/16 08:00 Room Air 12/01/16 07:40 36.6 76 96/55 (69) 97 Room Air Physical Exam: General- oriented x 3, not in distress, speaks in sentences with no effort Head- atraumatic Eyes- PERRL, EOMI, anicteric ENT- oropharynx clear, poor dentition Neck- supple, no JVD, no adenopathy, no thyromegaly Lungs- clear breath sounds bilaterally, no rales/wheezes Heart- regular rhythm; no murmur, normal rate Abdomen- normal bowel sounds, soft, nontender Extremities- no pretibial edema, no calf tenderness; peripheral pulses intact Neuro- alert, oriented x 3; PERRL, EOMI; no facial palsy; no dysarthria; motor 5 /5 bilaterally; sensation 100% no other focal neuro symptoms Skin- warm & dry Laboratory Results: Last 24 Hours Test 11/30/16 18:49 12/01/16 08:24 12/01/16 12:10 12/01/16 12:12 Ethyl Alcohol mg/dL < 3.0 mg/dl White Blood Count 8.57 K/uL Red Blood Count 3.75 M/uL Hemoglobin 11.9 g/dL Hematocrit 34.3 % Mean Corpuscular Volume 91.5 fL Mean Corpuscular Hemoglobin 31.7 pg Mean Corpuscular Hemoglobin Concent 34.7 g/dl Platelet Count 163 K/uL Mean Platelet Volume 10.2 fL Neutrophils (%) (Auto) 76.6 % Lymphocytes (%) (Auto) 17.2 % Monocytes (%) (Auto) 4.9 % Eosinophils (%) (Auto) 0.4 % Basophils (%) (Auto) 0.2 % Neutrophils # (Auto) 6.57 K/uL Lymphocytes # (Auto) 1.47 K/uL Monocytes # (Auto) 0.42 K/uL Eosinophils # (Auto) 0.03 K/uL Basophils # (Auto) 0.02 K/uL RDW Standard Deviation 42.7 fL RDW Coefficient of Variation 12.7 % Immature Granulocyte % (Auto) 0.7 % Immature Granulocyte # (Auto) 0.06 K/uL Sodium Level 140 mmol/L Potassium Level 3.2 mmol/L Chloride Level 110 mmol/L Carbon Dioxide Level 16 mmol/L Anion Gap 14.0 mmol/L Blood Urea Nitrogen 4 mg/dl Creatinine 0.68 mg/dl Est Creatinine Clear Calc Drug Dose 105.9 ml/min Estimated GFR () 133.2 Estimated GFR (Non- 114.9 BUN/Creatinine Ratio 6.5 Random Glucose 115 mg/dl Calcium Level 8.2 mg/dl Magnesium Level 1.9 mg/dl Date/Time Source Procedure Growth Status 11/30/16 20:45 Nasal MRSA DNA Surveillance Screen - Final Specimen Negative for MRSA by DNA Probe Complete Assessment & Plan 31 year old female 26 week , history of narcotic abuse on methadone, presenting with 2 seizure episodes on the day of admission. NEW-ONSET SEIZURES Etiology not apparent. No evidence of pre-eclampsia. No recent use of alcohol or illicit drugs. Taking methadone regularly as prescribed. Head CT negative. ED providers discussed case with Neurology. - loaded with IV Keppra transitioned to Keppra 500mg BID Folate added - EEG pending - Neurology consulted - monitor electrolytes no driving HYPOKALEMIA - replete with PO repeat at 4pm METABOLIC ACIDOSIS WITH HIGH ANION GAP - confirm with VBG check lactic acid - continue IV fluids INTRAUTERINE 26 WKS Seen by Obstetrics in ED. Check heart tones q shift. -- appreciate OB recommendations NARCOTIC ADDICTION Continue usual dose of methadone. GERD Continue famotidine. HISTORY OF MRSA History of MRSA years ago. Nasal screen negative on 11/16/16. Nasal screen: Negative VTE PROPHYLAXIS SCD's. Ambulate. DISPOSITION Admit to Telemetry Unit. Expected discharge to home when medically stable Family Medicine follow-up with Dr. Luciano. Obstetrics follow-up with [facility]. . Advanced Directives Existing Living Will: No Existing Power of Parachute Panel Joiner: No VTE Prophylaxis VTE Risk Assessment Done? Y/N: Yes Risk Level: Moderate Given or contraindicated: SCD's Current Inpatient Medications: Current Inpatient Medications Medications (Trade) Dose Ordered Sig/Zayra Route Start Time Stop Time Status Last Admin Dose Admin Prenat Multivit/ Solidworks Mechanical Designer/Iron/Folic Ac ( Vitamin Tab) 1 tab QAM PO 12/01/16 09:00 12/31/16 08:59 12/01/16 08:21 1 TAB Methadone HCl (Methadone HCl) 56 mg DAILY PO 12/01/16 09:00 12/31/16 08:59 12/01/16 08:22 56 MG Folic Acid (Folvite Tab) 1 mg QAM PO 12/01/16 09:00 12/31/16 08:59 12/01/16 08:21 1 MG Levetiracetam (Keppra Tab) 500 mg BID PO 12/01/16 09:00 12/31/16 08:59 12/01/16 08:20 500 MG Lorazepam 1 mg/ Syringe 1 ml @ 0.5 mls/min Q1H PRN IV 11/30/16 20:30 12/30/16 20:29 Famotidine (Pepcid Tab) 20 mg DAILY PRN PO 11/30/16 20:30 12/30/16 20:29 12/01/16 09:17 20 MG Lorazepam (Ativan Inj) 1 mg Q1H PRN IV 11/30/16 21:15 12/30/16 21:14 Diphenhydramine HCl (Benadryl Cap) 25 mg Q6H PRN PO 11/30/16 21:30 12/30/16 21:29 Ondansetron HCl (Zofran Inj) 4 mg Q8H PRN IV 12/01/16 04:00 12/31/16 03:59 12/01/16 04:25 4 MG Non-Formulary Medication (Patient'S Own Controlled Med) 1 ea DAILY PO 12/01/16 09:00 12/15/16 08:59 12/01/16 08:22 1 EA
[2016-12-01] MEDS: SODIUM CHLORIDE 0.9% 1000ML 1,000 ML IV SCH (13:21)
[2016-12-01 13:25] LABS: VEN BLD GAS O2 SATURATION 91.3 %; VEN BLOOD GAS BASE EXCESS -3.8 mEq/L
--- NOTE | 2016-12-01 14:18 | Neurology Consultation ---
Neurology Consultation Date of Consultation: Dec 01, 2016. Attending Physician: Smair Griffith MD Primary Care Physician: Jose Luciano M.D. Reason for Consultation: seizure History of Present Illness Source: patient, partner Gisell is a 31 year old female 26-weeks , GERD and some vomiting with - followed by [facility] [place] Obstetrics. has been uncomplicated - no hyperglycemia or elevated blood pressures. RD and occasional nausea and vomiting throughout her . Her fiance' states she has a tonic clonic seizure he witnesses that lasted about 4 minutes with stiffening of arms and legs and jerking bilaterally, she was confused afterward for about an hour after. Later in the day she had another seizure that appeared the same that he witnessed. She was seated in a chair during both episodes. She is on methadone which she takes at the clinic [facility] and has not missed any doses. She denies any loss of bowel or bladder or biting tongue. There is no family history or infant febrile history of seizures. She had c section with the last but it was not complicated by bleeding. denies CP, SOB, abdominal pain, weakness, numbness, tingling, bowel or bladder issues. + cigs smoker 1/2 ppd, no EtOH, no other drugs. 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) Marital Status: single, in relationship Occupation Status: unemployed Allergies Coded Allergies: Brompheniramine (Verified Allergy, Mild, RASH, 11/30/16) Phenylpropanolamine (Verified Allergy, Mild, RASH, 11/30/16) Current Inpatient Medications Current Inpatient Medications Medications (Trade) Dose Ordered Sig/Zayra Route Start Time Stop Time Status Last Admin Dose Admin Prenat Multivit/ [place]/Iron/Folic Ac ( Vitamin Tab) 1 tab QAM PO 12/01/16 09:00 12/31/16 08:59 12/01/16 08:21 1 TAB Methadone HCl (Methadone HCl) 56 mg DAILY PO 12/01/16 09:00 12/31/16 08:59 12/01/16 08:22 56 MG Folic Acid (Folvite Tab) 1 mg QAM PO 12/01/16 09:00 12/31/16 08:59 12/01/16 08:21 1 MG Levetiracetam (Keppra Tab) 500 mg BID PO 12/01/16 09:00 12/31/16 08:59 12/01/16 08:20 500 MG Lorazepam 1 mg/ Syringe 1 ml @ 0.5 mls/min Q1H PRN IV 11/30/16 20:30 12/30/16 20:29 Famotidine (Pepcid Tab) 20 mg DAILY PRN PO 11/30/16 20:30 12/30/16 20:29 12/01/16 09:17 20 MG Lorazepam (Ativan Inj) 1 mg Q1H PRN IV 11/30/16 21:15 12/30/16 21:14 Diphenhydramine HCl (Benadryl Cap) 25 mg Q6H PRN PO 11/30/16 21:30 12/30/16 21:29 Ondansetron HCl (Zofran Inj) 4 mg Q8H PRN IV 12/01/16 04:00 12/31/16 03:59 12/01/16 04:25 4 MG Non-Formulary Medication (Patient'S Own Controlled Med) 1 ea DAILY PO 12/01/16 09:00 12/15/16 08:59 12/01/16 08:22 1 EA Sodium Chloride 1,000 ml @ 75 mls/hr [id number] IV 12/01/16 13:00 12/31/16 12:59 12/01/16 13:21 75 MLS/HR Physical Exam Vital Signs (Past 24 Hrs): Date Time Temp Pulse Resp B/P (MAP) Pulse Ox O2 Delivery O2 Flow Rate FiO2 12/01/16 11:34 92/53 (66) 12/01/16 11:00 36.6 62 16 82/53 (63) 98 Room Air 12/01/16 09:12 97 Room Air 12/01/16 08:00 Room Air 12/01/16 07:40 36.6 76 96/55 (69) 97 Room Air 12/01/16 04:00 98/69 (79) 12/01/16 04:00 Room Air 12/01/16 04:00 110/64 (79) 12/01/16 04:00 36.8 85 17 105/64 (78) 98 Room Air 12/01/16 00:29 36.6 89 16 111/61 (78) 95 Room Air 12/01/16 00:01 Room Air 11/30/16 20:15 37.3 83 16 103/62 97 11/30/16 20:00 Room Air 11/30/16 19:59 83 16 103/62 97 Room Air 11/30/16 19:49 Room Air 11/30/16 18:37 83 16 103/62 97 Room Air 11/30/16 16:37 93 11/30/16 16:20 Room Air 11/30/16 16:11 37.3 97 18 118/63 98 Room Air Physical Exam: Constitutional: appearance nourished, healthy and normal Ears, Nose, Mouth and Throat: mucous membranes moist, no injection and skin normal, eyes normal Cardiovascular: normal S-1 and S-2 and regular rate and rhythm Respiratory: clear to auscultation (CTA) and no rales, rhonchi or wheeze Musculoskeletal: no peripheral edema and good distal pulses Skin: no stigmata of neurocutaneous disease noted and normal and intact Eyes: extraocular muscles intact (EOMI) and pupils equal, round and reactive to light (PERRL) NEUROLOGIC EXAMINATION: Mental status: Alert and interactive Oriented to full date and location Oriented to person Speech fluent with no evidence of aphasia Cranial Nerves smile eye brow raise symmetric, tongue midline Reflexes: Deep tendon reflexes were symmetrical and graded 2/5. Plantar responses were flexor. Sensory: no deficit to vibration or light touch Coordination: finger to nose without bi pass Gait/Stance: Posture sitting up in bed Motor: Negative for pronator drift of out stretched arms with eyes closed. Strength: biceps triceps hand separator tender 5/5 bilaterally hip flex plantar flex ext bilaterally 5 /5 Laboratory Results Past 24 Hours: 12/01/16 08:24 Red Blood Count 3.75, Mean Corpuscular Volume 91.5, Mean Corpuscular Hemoglobin 31.7, Mean Corpuscular Hemoglobin Concent 34.7, Mean Platelet Volume 10.2, Neutrophils (%) (Auto) 76.6, Lymphocytes (%) (Auto) 17.2, Monocytes (%) (Auto) 4.9, Eosinophils (%) (Auto) 0.4, Basophils (%) (Auto) 0.2, Neutrophils # (Auto) 6.57, Lymphocytes # (Auto) 1.47, Monocytes # (Auto) 0.42, Eosinophils # (Auto) 0.03, Basophils # (Auto) 0.02 12/01/16 08:24 Test 11/30/16 18:49 12/01/16 08:24 12/01/16 13:11 Ethyl Alcohol mg/dL < 3.0 mg/dl (0-3) White Blood Count 8.57 K/uL (4.8-10.8) Red Blood Count 3.75 M/uL (4.2-5.4) Hemoglobin 11.9 g/dL (12.0-16.0) Hematocrit 34.3 % (37-47) Mean Corpuscular Volume 91.5 fL (80-100) Mean Corpuscular Hemoglobin 31.7 pg (25-34) Mean Corpuscular Hemoglobin Concent 34.7 g/dl (32-36) Platelet Count 163 K/uL (130-400) Mean Platelet Volume 10.2 fL (7.4-10.4) Neutrophils (%) (Auto) 76.6 % Lymphocytes (%) (Auto) 17.2 % Monocytes (%) (Auto) 4.9 % Eosinophils (%) (Auto) 0.4 % Basophils (%) (Auto) 0.2 % Neutrophils # (Auto) 6.57 K/uL (1.4-6.5) Lymphocytes # (Auto) 1.47 K/uL (1.2-3.4) Monocytes # (Auto) 0.42 K/uL (0.11-0.59) Eosinophils # (Auto) 0.03 K/uL (0-0.5) Basophils # (Auto) 0.02 K/uL (0-0.2) RDW Standard Deviation 42.7 fL (36.4-46.3) RDW Coefficient of Variation 12.7 % (11.5-14.5) Immature Granulocyte % (Auto) 0.7 % Immature Granulocyte # (Auto) 0.06 K/uL (0.00-0.02) Anion Gap 14.0 mmol/L (3-11) Est Creatinine Clear Calc Drug Dose 105.9 ml/min Estimated GFR () 133.2 Estimated GFR (Non- 114.9 BUN/Creatinine Ratio 6.5 (10-20) Calcium Level 8.2 mg/dl (8.5-10.1) Magnesium Level 1.9 mg/dl (1.8-2.4) Venous Blood pH 7.43 (7.36-7.41) Venous Blood Partial Pressure CO2 31 mmHg (38.0-50.0) Venous Blood Partial Pressure O2 67 mmHg Venous Blood HCO3 20 mmol/L Venous Blood Oxygen Saturation 91.3 % Venous Blood Base Excess -3.8 mEq/L Lactic Acid Level 3.0 mmol/L (0.4-2.0) Date/Time Source Procedure Growth Status 11/30/16 20:45 Nasal MRSA DNA Surveillance Screen - Final Specimen Negative for MRSA by DNA Probe Complete Imaging CT head - No acute intracranial abnormality. Impression 31 year old female s/p seizure x 2 Plan 1. keppra 500 mg BID continue, discussed need to continue until delivery and then can be reassessed. may cause anger out bursts or moodiness 2. would consult Cardiology - methadone can cause Torsades 3. continue OBGYN medication management 4. no heights, no swimming alone bathing alone. no driving for 6 months seizure free 5. EEG - no seizure activity I have seen and discussed above patient with Dr Steve Bray, neurology Patient seen and interviewed and examined significant in the room and his description of events is certainly consistent with seizures exam currently normal and imaging and eeg essentially normal ( eeg mildly slow ) and the only issue now is whether the methadone might be causing q t interval issues and arrythmias as the cause for a secondary seizure but doubt would have cardiology clear this issue continue low dose keppra 500 bid see in our neurology office in about a month no rriving but she does not anyway and likely get mri imaging post delivery in uary of 2018 check keppra level when seen in our clinic in follow up could be discharged today if cardiology is ok with the methadone and the qt interval is not an issue. Steve Bray MD
[2016-12-01] MEDS ORDERED: LORAZEPAM 2 MG/ML 1 ML VIAL IV PRN (15:00)
[2016-12-01] MEDS ORDERED: LORAZEPAM INJ 0.5 MG in SYRINGE 0.75 ML IV PRN (15:15)
[2016-12-01 18:56] LABS: BUN/CREATININE RATIO 9.4 (10-20); CALCIUM 7.7 mg/dl (8.5-10.1); CREATININE 0.61 mg/dl (0.60-1.20); POTASSIUM 3.8 mmol/L (3.5-5.1)
[2016-12-02 00:34] VITALS: BP 92/49; PULSE 71; TEMP 36.8; O2SAT 99
[2016-12-02] MEDS: SODIUM CHLORIDE 0.9% 1000ML 1,000 ML IV SCH ×2 (00:38→14:48)
--- NOTE | 2016-12-02 00:43 | ELECTROENCEPHALOGRAPH REPORT ---
REQUESTING PHYSICIAN: Dr. Abdul. CLINICAL DIAGNOSES: 1. at 6 months. 2. Witnessed seizures. EEG DIAGNOSIS: Mildly diffusely abnormal EEG with slight excessive slowing of all background rhythms. No clear potentially epileptogenic activity seen. DESCRIPTION OF TRACING: EEG was done as a bedside recording and is of good technical quality. A simultaneous video analysis of patient movement and behavior was obtained. Photic stimulation was performed. Hyperventilation was not. Drowsiness and light sleep were not recorded. Under these conditions, there is evidence for an alpha rhythm in the low normal range of about 9 Hz of maximum frequency and 40 microvolts in maximum amplitude. This is maximum posterior head regions bilaterally symmetrical. Polymorphic mid to lower frequency theta activity of modest voltage is seen over all head regions, maximum in the central regions and is intermixed at times with some isolated waveforms in the delta range. Beta activity is seen bifrontally in a symmetrical fashion. Photic stimulation provoked some modest driving response without a photomyogenic or photoparoxysmal component. At no time during the waking tracing is there clear evidence for potentially epileptogenic activity in the form of polyspike or spike wave bursts, focal sharp waves or focal spikes. INTERPRETATION: This EEG is at most mildly diffusely abnormal with the abnormalities consisting of a slight excessive amount of slower activity than would be expected in a normal individual of this age. The pattern could reflect postictal slowing or nonspecific generalized encephalopathy. There are no lateralizing features and no potentially epileptogenic activities seen, but the absence of the latter does not exclude a seizure disorder.
[2016-12-02 03:47] VITALS: BP 101/58; PULSE 75; TEMP 36.8; O2SAT 97
[2016-12-02] MEDS: ACETAMINOPHEN 500 MG TAB PO PRN ×2 (05:38→06:11)
--- NOTE | 2016-12-02 06:20 | OB/GYN Progress Note ---
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 Subjective conversation w/ patient, physical exam Objective Vital Signs Date Time Temp Pulse Resp B/P (MAP) Pulse Ox O2 Delivery O2 Flow Rate FiO2 12/02/16 04:00 Room Air 12/02/16 03:47 36.8 75 17 101/58 (72) 97 Room Air 12/02/16 00:34 36.8 71 17 92/49 (63) 99 Room Air 12/01/16 23:59 Room Air 12/01/16 20:07 36.8 66 18 101/52 (68) 98 Room Air 12/01/16 20:00 Room Air 12/01/16 16:00 Room Air 12/01/16 15:52 36.4 58 18 87/48 (61) 100 Room Air 12/01/16 12:00 Room Air 12/01/16 11:34 92/53 (66) 12/01/16 11:00 36.6 62 16 82/53 (63) 98 Room Air 12/01/16 09:12 97 Room Air 12/01/16 08:00 Room Air 12/01/16 07:40 36.6 76 96/55 (69) 97 Room Air Physical Exam Abdomen: + pertinent finding ((+)FHT's 140) Laboratory Results Last 24 Hours Test 12/01/16 08:24 12/01/16 13:11 12/01/16 18:29 12/02/16 04:44 White Blood Count 8.57 K/uL Red Blood Count 3.75 M/uL Hemoglobin 11.9 g/dL Hematocrit 34.3 % Mean Corpuscular Volume 91.5 fL Mean Corpuscular Hemoglobin 31.7 pg Mean Corpuscular Hemoglobin Concent 34.7 g/dl Platelet Count 163 K/uL Mean Platelet Volume 10.2 fL Neutrophils (%) (Auto) 76.6 % Lymphocytes (%) (Auto) 17.2 % Monocytes (%) (Auto) 4.9 % Eosinophils (%) (Auto) 0.4 % Basophils (%) (Auto) 0.2 % Neutrophils # (Auto) 6.57 K/uL Lymphocytes # (Auto) 1.47 K/uL Monocytes # (Auto) 0.42 K/uL Eosinophils # (Auto) 0.03 K/uL Basophils # (Auto) 0.02 K/uL RDW Standard Deviation 42.7 fL RDW Coefficient of Variation 12.7 % Immature Granulocyte % (Auto) 0.7 % Immature Granulocyte # (Auto) 0.06 K/uL Sodium Level 140 mmol/L 141 mmol/L Potassium Level 3.2 mmol/L 3.8 mmol/L Chloride Level 110 mmol/L 112 mmol/L Carbon Dioxide Level 16 mmol/L 21 mmol/L Anion Gap 14.0 mmol/L 8.0 mmol/L Blood Urea Nitrogen 4 mg/dl 6 mg/dl Creatinine 0.68 mg/dl 0.61 mg/dl Est Creatinine Clear Calc Drug Dose 105.9 ml/min 118.0 ml/min Estimated GFR () 133.2 138.1 Estimated GFR (Non- 114.9 119.1 BUN/Creatinine Ratio 6.5 9.4 Random Glucose 115 mg/dl 85 mg/dl Calcium Level 8.2 mg/dl 7.7 mg/dl Magnesium Level 1.9 mg/dl Venous Blood pH 7.43 Venous Blood Partial Pressure CO2 31 mmHg Venous Blood Partial Pressure O2 67 mmHg Venous Blood HCO3 20 mmol/L Venous Blood Oxygen Saturation 91.3 % Venous Blood Base Excess -3.8 mEq/L Lactic Acid Level 3.0 mmol/L 2.1 mmol/L Assessment and Plan Continue Routine Care: - no further seizure activity - once patient d/c'd needs to f/u for routine OB care
[2016-12-02 08:17] VITALS: BP 111/56; PULSE 92; TEMP 37; O2SAT 100
[2016-12-02 08:23] LABS: BASO % 0.2 %; BASO ABS # 0.01 K/uL (0-0.2); COMPLETE YES; EOS % 0.8 %; HEMATOCRIT 32.9 % (37-47); IG% 0.2 %; LYMPH % 23.5 %; MEAN CELL VOLUME 91.1 fL (80-100); MEAN CORPUSCULAR HEMOGLOBIN 31.6 pg (25-34); MEAN CORPUSCULAR HGB CONC 34.7 g/dl (32-36); MEAN PLATELET VOLUME 10.3 fL (7.4-10.4); MONO % 5.4 %; NEUT % 69.9 %; PLATELET COUNT 204 K/uL (130-400); RED BLOOD COUNT 3.61 M/uL (4.2-5.4); WHITE BLOOD COUNT 5.95 K/uL (4.8-10.8)
[2016-12-02] MEDS: PRENATAL VITAMIN TAB PO SCH (08:31)
[2016-12-02] MEDS: LEVETIRACETAM 500 MG TAB PO SCH (08:31)
[2016-12-02] MEDS: METHADONE ORAL SOLN 2 MG/1ML PO SCH (08:37)
[2016-12-02] MEDS: METHADONE PO SCH (08:37)
[2016-12-02 08:53] LABS: CREATININE 0.5 mg/dl (0.60-1.20); MAGNESIUM 1.8 mg/dl (1.8-2.4); POTASSIUM 3.6 mmol/L (3.5-5.1)
[2016-12-02 10:25] VITALS: BP 95/55; PULSE 74; TEMP 36.7; O2SAT 96
--- NOTE | 2016-12-02 11:31 | Progress Note ---
Medicine Progress Note Date & Time of Visit: Dec 02, 2016 at 11:24. Subjective comfortable, not in distress states she feels "great", but getting a little anxious as she is always used to be doing something denies seizure recurrence, confusion, lethargy good movement denies other symptoms eager for discharge Objective Last 8 Hrs Date Time Temp Pulse Resp B/P (MAP) Pulse Ox O2 Delivery O2 Flow Rate FiO2 12/02/16 10:25 36.7 74 20 95/55 (68) 96 Room Air 12/02/16 08:17 37.0 92 28 111/56 (74) 100 12/02/16 08:00 Room Air 12/02/16 04:00 Room Air 12/02/16 03:47 36.8 75 17 101/58 (72) 97 Room Air Physical Exam: General- oriented x 3, not in distress, speaks in sentences with no effort Eyes- anicteric Neck- supple, no JVD Lungs- clear breath sounds bilaterally Heart- regular rhythm; no murmur, normal rate Abdomen- normal bowel sounds, soft, nontender Extremities- no pretibial edema, no calf tenderness; peripheral pulses intact Neuro- alert, oriented x 3; no gross focal deficits Skin- warm & dry Laboratory Results: Last 24 Hours Test 12/01/16 13:11 12/01/16 18:29 12/02/16 07:34 12/02/16 07:43 Venous Blood pH 7.43 Venous Blood Partial Pressure CO2 31 mmHg Venous Blood Partial Pressure O2 67 mmHg Venous Blood HCO3 20 mmol/L Venous Blood Oxygen Saturation 91.3 % Venous Blood Base Excess -3.8 mEq/L Lactic Acid Level 3.0 mmol/L 2.1 mmol/L 2.9 mmol/L Sodium Level 141 mmol/L 140 mmol/L Potassium Level 3.8 mmol/L 3.6 mmol/L Chloride Level 112 mmol/L 110 mmol/L Carbon Dioxide Level 21 mmol/L 22 mmol/L Anion Gap 8.0 mmol/L 8.0 mmol/L Blood Urea Nitrogen 6 mg/dl 3 mg/dl Creatinine 0.61 mg/dl 0.50 mg/dl Est Creatinine Clear Calc Drug Dose 118.0 ml/min 144.0 ml/min Estimated GFR () 138.1 147.4 Estimated GFR (Non- 119.1 127.2 BUN/Creatinine Ratio 9.4 6.0 Random Glucose 85 mg/dl 79 mg/dl Calcium Level 7.7 mg/dl 9.0 mg/dl Magnesium Level 1.8 mg/dl Test 12/02/16 07:49 White Blood Count 5.95 K/uL Red Blood Count 3.61 M/uL Hemoglobin 11.4 g/dL Hematocrit 32.9 % Mean Corpuscular Volume 91.1 fL Mean Corpuscular Hemoglobin 31.6 pg Mean Corpuscular Hemoglobin Concent 34.7 g/dl Platelet Count 204 K/uL Mean Platelet Volume 10.3 fL Neutrophils (%) (Auto) 69.9 % Lymphocytes (%) (Auto) 23.5 % Monocytes (%) (Auto) 5.4 % Eosinophils (%) (Auto) 0.8 % Basophils (%) (Auto) 0.2 % Neutrophils # (Auto) 4.16 K/uL Lymphocytes # (Auto) 1.40 K/uL Monocytes # (Auto) 0.32 K/uL Eosinophils # (Auto) 0.05 K/uL Basophils # (Auto) 0.01 K/uL RDW Standard Deviation 42.5 fL RDW Coefficient of Variation 12.7 % Immature Granulocyte % (Auto) 0.2 % Immature Granulocyte # (Auto) 0.01 K/uL Assessment & Plan 31 year old female 26 week , history of narcotic abuse on methadone, presenting with 2 seizure episodes on the day of admission. [place] SEIZURES Etiology not apparent. No evidence of pre-eclampsia. No recent use of alcohol or illicit drugs. Taking methadone regularly as prescribed. Head CT negative. ED providers discussed case with Neurology. - loaded with IV Keppra transitioned to Keppra 500mg BID Folate added - EEG noted - Neurology consulted -- tolerating Keppra well no recurrence of seizures ff up with Neurology in 2 weeks, check Keppra level at that time QT is 443- acceptable-- monitor as outpatient ELEVATED LACTIC ACID - no signs of infection from recent seizures? - HCO3 normal Lactic acid elevated again today at 2.9 increase IV NSS repeat Lactic acid level at 5pm HYPOKALEMIA - repleted with PO - resolved INTRAUTERINE 26 WKS Seen by Obstetrics in ED. Check heart tones q shift. -- appreciate OB recommendations NARCOTIC ADDICTION Continue usual dose of methadone. GERD Continue famotidine. HISTORY OF MRSA History of MRSA years ago. Nasal screen negative on 11/16/16. Nasal screen: Negative VTE PROPHYLAXIS SCD's. Ambulate. DISPOSITION anticipate d/c home later this afternoon when lactic acid normalized Family Medicine follow-up with Dr. Luciano. Obstetrics follow-up with [facility]. . Advanced Directives Existing Living Will: No Existing Power of Master [employer] Parach[employer]ist: No VTE Prophylaxis VTE Risk Assessment Done? Y/N: Yes Risk Level: Moderate Given or contraindicated: SCD's Current Inpatient Medications: Current Inpatient Medications Medications (Trade) Dose Ordered Sig/Zayra Route Start Time Stop Time Status Last Admin Dose Admin Prenat Multivit/ [place]/Iron/Folic Ac ( Vitamin Tab) 1 tab QAM PO 12/01/16 09:00 12/31/16 08:59 12/02/16 08:31 1 TAB Methadone HCl (Methadone HCl) 56 mg DAILY PO 12/01/16 09:00 12/31/16 08:59 12/02/16 08:37 56 MG Folic Acid (Folvite Tab) 1 mg QAM PO 12/01/16 09:00 12/31/16 08:59 12/02/16 08:31 1 MG Levetiracetam (Keppra Tab) 500 mg BID PO 12/01/16 09:00 12/31/16 08:59 12/02/16 08:31 500 MG Lorazepam 1 mg/ Syringe 1 ml @ 0.5 mls/min Q1H PRN IV 11/30/16 20:30 12/30/16 20:29 Famotidine (Pepcid Tab) 20 mg DAILY PRN PO 11/30/16 20:30 12/30/16 20:29 12/01/16 09:17 20 MG Lorazepam (Ativan Inj) 1 mg Q1H PRN IV 11/30/16 21:15 12/30/16 21:14 Diphenhydramine HCl (Benadryl Cap) 25 mg Q6H PRN PO 11/30/16 21:30 12/30/16 21:29 12/02/16 04:03 25 MG Ondansetron HCl (Zofran Inj) 4 mg Q8H PRN IV 12/01/16 04:00 12/31/16 03:59 12/01/16 04:25 4 MG Non-Formulary Medication (Patient'S Own Controlled Med) 1 ea DAILY PO 12/01/16 09:00 12/15/16 08:59 12/02/16 08:37 1 EA Sodium Chloride 1,000 ml @ 125 mls/hr Q8H IV 12/01/16 13:00 12/31/16 12:59 12/02/16 00:38 60 MLS/HR Lorazepam (Ativan Inj) 0.5 mg Q4H PRN IV 12/01/16 15:00 12/31/16 14:59 Lorazepam 0.5 mg/ Syringe 1 ml @ 1 mls/min Q4H PRN IV 12/01/16 15:15 12/31/16 15:14 Acetaminophen (Tylenol Tab) 500 mg Q4 PRN PO 12/02/16 05:30 01/01/17 05:29 12/02/16 06:11 500 MG
--- NOTE | 2016-12-02 15:06 | Neurology Progress Notes ---
Neurology Progress Note Date of Service Dec 02, 2016. Sana Jameson is a 31 year old female 26-weeks , GERD and some vomiting with - followed by [facility] [place] Obstetrics. has been uncomplicated - no hyperglycemia or elevated blood pressures. RD and occasional nausea and vomiting throughout her . Her fiance' states she has a tonic clonic seizure he witnesses that lasted about 4 minutes with stiffening of arms and legs and jerking bilaterally, she was confused afterward for about an hour after. Later in the day she had another seizure that appeared the same that he witnessed. She was seated in a chair during both episodes. She is on methadone which she takes at the clinic [facility] and has not missed any doses. She denies any loss of bowel or bladder or biting tongue. There is no family history or infant febrile history of seizures. She had c section with the last but it was not complicated by bleeding. She is anxious to be discharged she states she is feeling well. No mood issues so far with the Michaelppra denies CP, SOB, abdominal pain, weakness, numbness, tingling, bowel or bladder issues. + cigs smoker 1/2 ppd, no EtOH, no other drugs. Objective Date Time Temp Pulse Resp B/P (MAP) Pulse Ox O2 Delivery O2 Flow Rate FiO2 12/02/16 12:00 Room Air 12/02/16 10:25 36.7 74 20 95/55 (68) 96 Room Air 12/02/16 08:17 37.0 92 28 111/56 (74) 100 12/02/16 08:00 Room Air 12/02/16 04:00 Room Air 12/02/16 03:47 36.8 75 17 101/58 (72) 97 Room Air 12/02/16 00:34 36.8 71 17 92/49 (63) 99 Room Air 12/01/16 23:59 Room Air 12/01/16 20:07 36.8 66 18 101/52 (68) 98 Room Air 12/01/16 20:00 Room Air 12/01/16 16:00 Room Air 12/01/16 15:52 36.4 58 18 87/48 (61) 100 Room Air Last 24 Hours Test 12/01/16 18:29 12/02/16 07:34 12/02/16 07:43 12/02/16 07:49 Sodium Level 141 mmol/L 140 mmol/L Potassium Level 3.8 mmol/L 3.6 mmol/L Chloride Level 112 mmol/L 110 mmol/L Carbon Dioxide Level 21 mmol/L 22 mmol/L Anion Gap 8.0 mmol/L 8.0 mmol/L Blood Urea Nitrogen 6 mg/dl 3 mg/dl Creatinine 0.61 mg/dl 0.50 mg/dl Est Creatinine Clear Calc Drug Dose 118.0 ml/min 144.0 ml/min Estimated GFR () 138.1 147.4 Estimated GFR (Non- 119.1 127.2 BUN/Creatinine Ratio 9.4 6.0 Random Glucose 85 mg/dl 79 mg/dl Lactic Acid Level 2.1 mmol/L 2.9 mmol/L Calcium Level 7.7 mg/dl 9.0 mg/dl Magnesium Level 1.8 mg/dl White Blood Count 5.95 K/uL Red Blood Count 3.61 M/uL Hemoglobin 11.4 g/dL Hematocrit 32.9 % Mean Corpuscular Volume 91.1 fL Mean Corpuscular Hemoglobin 31.6 pg Mean Corpuscular Hemoglobin Concent 34.7 g/dl Platelet Count 204 K/uL Mean Platelet Volume 10.3 fL Neutrophils (%) (Auto) 69.9 % Lymphocytes (%) (Auto) 23.5 % Monocytes (%) (Auto) 5.4 % Eosinophils (%) (Auto) 0.8 % Basophils (%) (Auto) 0.2 % Neutrophils # (Auto) 4.16 K/uL Lymphocytes # (Auto) 1.40 K/uL Monocytes # (Auto) 0.32 K/uL Eosinophils # (Auto) 0.05 K/uL Basophils # (Auto) 0.01 K/uL RDW Standard Deviation 42.5 fL RDW Coefficient of Variation 12.7 % Immature Granulocyte % (Auto) 0.2 % Immature Granulocyte # (Auto) 0.01 K/uL Imaging: no new images EEG This EEG is at most mildly diffusely abnormal with the abnormalities consisting of a slight excessive amount of slower activity than would be expected in a normal individual of this age. The pattern could reflect postictal slowing or nonspecific generalized encephalopathy. There are no lateralizing features and no potentially epileptogenic activities seen, but the absence of the latter does not exclude a seizure disorder. Exam: Gen: alert NAD lungs CTA CV RRR move around the room smile eye brow raise symmetric Current Inpatient Medications Medications (Trade) Dose Ordered Sig/Zayra Route Start Time Stop Time Status Last Admin Dose Admin Prenat Multivit/ [place]/Iron/Folic Ac ( Vitamin Tab) 1 tab QAM PO 12/01/16 09:00 12/31/16 08:59 12/02/16 08:31 1 TAB Methadone HCl (Methadone HCl) 56 mg DAILY PO 12/01/16 09:00 12/31/16 08:59 12/02/16 08:37 56 MG Folic Acid (Folvite Tab) 1 mg QAM PO 12/01/16 09:00 12/31/16 08:59 12/02/16 08:31 1 MG Levetiracetam (Keppra Tab) 500 mg BID PO 12/01/16 09:00 12/31/16 08:59 12/02/16 08:31 500 MG Lorazepam 1 mg/ Syringe 1 ml @ 0.5 mls/min Q1H PRN IV 11/30/16 20:30 12/30/16 20:29 Famotidine (Pepcid Tab) 20 mg DAILY PRN PO 11/30/16 20:30 12/30/16 20:29 12/01/16 09:17 20 MG Lorazepam (Ativan Inj) 1 mg Q1H PRN IV 11/30/16 21:15 12/30/16 21:14 Diphenhydramine HCl (Benadryl Cap) 25 mg Q6H PRN PO 11/30/16 21:30 12/30/16 21:29 12/02/16 04:03 25 MG Ondansetron HCl (Zofran Inj) 4 mg Q8H PRN IV 12/01/16 04:00 12/31/16 03:59 12/01/16 04:25 4 MG Non-Formulary Medication (Patient'S Own Controlled Med) 1 ea DAILY PO 12/01/16 09:00 12/15/16 08:59 12/02/16 08:37 1 EA Sodium Chloride 1,000 ml @ 125 mls/hr Q8H IV 12/01/16 13:00 12/31/16 12:59 12/02/16 14:48 125 MLS/HR Lorazepam (Ativan Inj) 0.5 mg Q4H PRN IV 12/01/16 15:00 12/31/16 14:59 Lorazepam 0.5 mg/ Syringe 1 ml @ 1 mls/min Q4H PRN IV 12/01/16 15:15 12/31/16 15:14 Acetaminophen (Tylenol Tab) 500 mg Q4 PRN PO 12/02/16 05:30 01/01/17 05:29 12/02/16 06:11 500 MG Impression 31 year old female s/p seizure x 2 Plan 1. keppra 500 mg BID continue, discussed need to continue until delivery and then can be reassessed. may cause anger out bursts or moodiness 2. would consult Cardiology - methadone can cause Torsades - EKG done and no prolonged QT waves 3. continue BUSINESS OPERATIONS MANAGER medication management 4. no heights, no swimming alone bathing alone. no driving for 6 months seizure free 5. EEG - no seizure activity Will see in neurology clinic in 3-4 weeks with Keppra level at that time. MRI after delivery of baby in February for evaluation of any causes of seizure I have seen and discussed above patient with Dr Steve Bray, neurology Pateint seen and examined above reviewed with Anahi Hayes discharge plans per neuro as above now awaiting lactic acid level and if acceptable will be discharged Steve Bray MD
[2016-12-02 16:37] VITALS: BP 98/60; PULSE 78; TEMP 36.9; O2SAT 100
[2016-12-02] MEDS ORDERED: LEVE500T13 PO (17:49)
--- NOTE | 2016-12-02 17:58 | Discharge Instructions ---
Discharge Instructions Date of Service Dec 02, 2016. Admission Reason for Admission: Intrauterine , Seizure Discharge Discharge Diagnosis / Problem: SEIZURE Discharge Goals Goal(s): Diagnostic testing, Therapeutic intervention Activity Recommendations Activity Limitations: as noted below (NO HEAVY EXERTION UNTIL RE-EVALUATED BY PRIMARY CARE PHYSICIAN) Lifting Limitations: until after follow-up appointment Exercise/Sports Limitations: until after follow-up appointment Driving or Machine Use: NO DRIVING UNTIL CLEARED BY NEUROLOGY PLEASE REVIEW YOUR NEW MEDICATION LIST AND FOLLOW INSTRUCTIONS CAREFULLY. TAKE YOUR NEW MEDICATION FOR SEIZURE- KEPPRA, DIRECTED. FOLLOW UP WITH PRIMARY CARE PHYSICIAN AND NEUROLOGIST DIRECTED. CALL 911 IMMEDIATELY IF WITH RECURRENCE OF SEIZURES. NO DRIVING UNTIL ALLOWED BY NEUROLOGIST ON FOLLOW UP. NO OPERATING MACHINERIES, SWIMMING, BATHING IN THE TUB. ENSURE ADEQUATE DAILY FLUID INTAKE. FOLLOW UP WITH DR. GREENE ON FRIDAY DECEMBER 09, 2016 AT 10:05 AM. FOLLOW UP WITH NEUROLOGIST DR. PAULO PARK IN 2 WEEKS. PLEASE CALL HIS OFFICE FOR THE APPOINTMENT. TEL. NO. . FOLLOW UP WITH YOUR OB-MANAGER TRANSFER DIRECTED. Current Hospital Diet Patient's current hospital diet: Regular Diet Discharge Diet Recommended Diet: Regular Diet Pending Studies Studies pending at discharge: yes List of pending studies: KEPPRA LEVEL TO BE OBTAINED DURING FOLLOW UP WITH NEUROLOGIST Medical Emergencies . Who to Call and When: Medical Emergencies: If at any time you feel your situation is an emergency, please call 911 immediately. . Non-Emergent Contact Non-Emergency issues call your: Primary Care Provider Call Non-Emergent contact if: you have a fever, you have any medication questions . . "Provider Documentation" section prepared by Samir Griffith. . VTE Core Measure Inpt VTE Proph given/why not?: SCD's
[2016-12-02 18:48] VITALS: BP 98/60; PULSE 78; TEMP 36.9; O2SAT 100
--- NOTE | 2016-12-03 08:07 | Discharge Summary ---
Discharge Summary Date of Service Dec 03, 2016. Discharge Summary Admission Date: Nov 30, 2016 at 19:43 Discharge Date: Dec 02, 2016 Discharge Disposition: Home Principal Diagnosis: NEW-ONSET SEIZURES Secondary Diagnoses/Problems: Please refer to hospital course below. Procedures: HEAD WITHOUT CONTRAST (CT) CLINICAL HISTORY: 31 years-old Female with seizure. Acute seizure TECHNIQUE: Multiple axial CT images of the head were obtained without contrast. A dose lowering technique was utilized adhering to the principles of ALARA. CT DOSE: 638.56 mGycm COMPARISON: CT head 11/11/2007. FINDINGS: No acute intracranial hemorrhage, midline shift, mass, large territorial ischemia or abnormal extra-axial collection. The calvarium is intact. The paranasal sinuses, mastoid air cells, and middle ear cavities are clear. IMPRESSION: No acute intracranial abnormality. EEG INTERPRETATION: This EEG is at most mildly diffusely abnormal with the abnormalities consisting of a slight excessive amount of slower activity than would be expected in a normal individual of this age. The pattern could reflect postictal slowing or nonspecific generalized encephalopathy. There are no lateralizing features and no potentially epileptogenic activities seen, but the absence of the latter does not exclude a seizure disorder. Consultations: Neurologist Dr. Park, automation sales manager Dr. Espinosa Pending Studies/Follow-Up: Needs Keppra Level drawn on follow up with Dr. Pakr in 2 weeks. Please refer to hospital course below for further details. Medication Reconciliation New Medications: Levetiracetam (Keppra) 500 Mg Tab 500 MG PO BID for 30 Days, #60 TAB 0 Refills Continued Medications: Famotidine (Pepcid) 20 Mg Tab 20 MG PO DAILY PRN for Indigestion, TAB Methadone Hcl (Methadone Hcl) 10 Mg/5 Ml Ivelisse 56 ML PO DAILY Multivit/Min/Iron/Fol Ac/Pren ( Vitamin) Tab 1 TAB PO DAILY, TAB Admission Information HPI (per Admitting provider): 31-year-old female followed by Dr. Luciano for Family Medicine. 26-weeks - [place] [facility]. has been on complicated- no hyperglycemia or elevated blood pressures. She has had GERD and occasional nausea and vomiting throughout her . Vomited this morning. Today around noon she had a generalized tonic-clonic seizure witnessed by her fianc. Episode lasted for about 4 minutes. No associated tongue biting or incontinence of urine. She appeared be postictal for a while after the event. Came to the ED for evaluation. Labs were unremarkable. Head CT was negative. Patient was released from the ED. Round 16:00 she had another seizure, similar to the episode earlier in the day. No fever. Mild headache after seizures. Mild neck pain after seizures. No photophobia. History of narcotic addiction, currently in methadone program. Denies current use of recreational drugs. No recent alcohol intake. No history of head injury. No prior history of seizures. No family history of seizures. . Physical Exam (per Admitting): General Appearance: WD/WN, no apparent distress Head: normocephalic, atraumatic Eyes: normal inspection, PERRL, EOMI, sclerae normal (conjunctivae pink) ENT: hearing grossly normal, pharynx normal Neck: supple, no adenopathy, thyroid normal, no JVD, trachea midline Respiratory/Chest: lungs clear, no respiratory distress, no accessory muscle use Cardiovascular: regular rate, rhythm, no edema, no gallop, no JVD, + systolic murmur (I/ systolic murmur at base) Abdomen/GI: normal bowel sounds, non tender, soft, no organomegaly, + pertinent finding (gravid uterus) Extremities/Musculoskelatal: normal inspection, no calf tenderness, no pedal edema Neurologic/Psych: stock clipper II-XII nml as tested (PERRL, EOMI, no facial palsy, no dysarthria) Skin: normal color, warm/dry, no rash Lymphatic: no adenopathy (cervical) Hospital Course 31 year old female 26 week , history of narcotic abuse on methadone, presenting with 2 seizure episodes on the day of admission. NEW-ONSET SEIZURES Etiology not apparent. No evidence of pre-eclampsia. No recent use of alcohol or illicit drugs. Taking methadone regularly as prescribed. Head CT negative. - loaded with IV Keppra at the ER transitioned to Keppra 500mg BID Folate added - EEG: INTERPRETATION: This EEG is at most mildly diffusely abnormal with the abnormalities consisting of a slight excessive amount of slower activity than would be expected in a normal individual of this age. The pattern could reflect postictal slowing or nonspecific generalized encephalopathy. There are no lateralizing features and no potentially epileptogenic activities seen, but the absence of the latter does not exclude a seizure disorder. - Neurology- Dr. Park, consulted - tolerating Keppra well, no recurrence of seizures while inpatient continue Keppra 500mg BID ff up with Neurology in 2 weeks, check Keppra level at that time, MRI of the brain after delivery Seizure precautions provided to patient, advised to take medications as directed consistently, no driving until cleared by Dr. Park case discussed with patient and his fiance at length and they understand and agree with plan of care ELEVATED LACTIC ACID - no signs of infection likely from recent seizures - HCO3 normal Lactic acid improved from 3.0 to 1.8 after IV fluids given - advised to increase oral fluid intake HYPOKALEMIA - repleted with PO - resolved monitor as outpatient INTRAUTERINE 26 WKS -- thimble press operator was consulted and followed patient no issues, follow up with OB as scheduled NARCOTIC ADDICTION -- follows at [facility] in [place] -- Continued usual dose of methadone QT is 443- acceptable-- monitor QTc as outpatient GERD Continue famotidine. DISPOSITION d/c home Family Medicine follow-up with Dr. Luciano in 3-5 days Obstetrics follow-up with [facility] as scheduled Neurologist Dr. Park in 2 weeks Total time spent on discharge = 40 minutes This includes examination of the patient, discharge planning, medication reconciliation, and communication with other providers. Discharge Instructions Discharge Instructions Date of Service Dec 02, 2016. Admission Reason for Admission: Intrauterine , Seizure Discharge Discharge Diagnosis / Problem: SEIZURE Discharge Goals Goal(s): Diagnostic testing, Therapeutic intervention Activity Recommendations Activity Limitations: as noted below (NO HEAVY EXERTION UNTIL RE-EVALUATED BY PRIMARY CARE PHYSICIAN) Lifting Limitations: until after follow-up appointment Exercise/Sports Limitations: until after follow-up appointment Driving or Machine Use: NO DRIVING UNTIL CLEARED BY NEUROLOGY PLEASE REVIEW YOUR NEW MEDICATION LIST AND FOLLOW INSTRUCTIONS CAREFULLY. TAKE YOUR NEW MEDICATION FOR SEIZURE- KEPPRA, DIRECTED. FOLLOW UP WITH PRIMARY CARE PHYSICIAN AND NEUROLOGIST DIRECTED. CALL 911 IMMEDIATELY IF WITH RECURRENCE OF SEIZURES. NO DRIVING UNTIL ALLOWED BY NEUROLOGIST ON FOLLOW UP. NO OPERATING MACHINERIES, SWIMMING, BATHING IN THE TUB. ENSURE ADEQUATE DAILY FLUID INTAKE. FOLLOW UP WITH DR. LUCIANO ON FRIDAY DECEMBER 09, 2016 AT 10:05 AM. FOLLOW UP WITH NEUROLOGIST DR. PAULO PARK IN 2 WEEKS. PLEASE CALL HIS OFFICE FOR THE APPOINTMENT. TEL. NO. . FOLLOW UP WITH YOUR OB-SHEEP FARM WORKER DIRECTED. Current Hospital Diet Patient's current hospital diet: Regular Diet Discharge Diet Recommended Diet: Regular Diet Pending Studies Studies pending at discharge: yes List of pending studies: KEPPRA LEVEL TO BE OBTAINED DURING FOLLOW UP WITH NEUROLOGIST
== END 2016-12-02 19:03 | disposition home or self-care (01) | DRG 781 ==
LOC: C.EDB 16:03 → C.2E 19:43 → ENRESERV 19:52
PROVIDERS: ADMIT Hospitalist; ATTEND Internal Medicine
DX: O99.352 Diseases of the nervous system complicating pregnancy, second trimester (principal); E87.2 Acidosis; G40.909 Epilepsy, unspecified, not intractable, without status epilepticus; Z3A.26 26 weeks gestation of pregnancy; O99.332 Smoking (tobacco) complicating pregnancy, second trimester; F17.201 Nicotine dependence, unspecified, in remission; F11.21 Opioid dependence, in remission; K21.9 Gastro-esophageal reflux disease without esophagitis; Z86.14 Personal history of Methicillin resistant Staphylococcus aureus infection; F32.9 Major depressive disorder, single episode, unspecified; E87.6 Hypokalemia

== ENCOUNTER 2016-12-10 13:53 | Emergency (ER) | payer OTHER ==
[~2016-12-10] VITALS: Ht 165.1 cm; Wt 58.3 kg
[~2016-12-10 13:53] MED LIST changes: -BUPR8MIS SL; +FAMO20TA9 PO; +LEVE500T13 PO; -MIRT30TA5 PO; -MTR600X PO; +PRENTAB26 PO
[2016-12-10 14:07] VITALS: TEMP 36.5; Ht 165.1 cm; Wt 58.3 kg
[2016-12-10] MEDS ORDERED: SODIUM CHLORIDE 0.9% 1000ML 500 ML IV STA (14:26)
--- NOTE | 2016-12-10 14:43 | EMERGENCY ROOM VISIT NOTE ---
History Report prepared by Aron: Talia Serrano Under the Supervision of: Dr. Kirt Shaver M.D. First contact with patient: 14:21 Chief Complaint: OTHER COMPLAINT Stated Complaint: SYNCOPE History of Present Illness The patient is a 31 year old female who presents to the Emergency Room with complaints of an episode of syncope that occurred approximately 2 hours prior to arrival. She was brought to the ED via EMS and is accompanied by her fiance. Her fiance reports they were shopping at a store this morning, when he saw her "slump over". He does not think she hit her head. He states she was very tired earlier today, but was "totally fine" yesterday. The patient has a history of heroin addiction and is currently taking Methadone. She was started on Keppra recently for seizures. Her fiance states she was in the hospital from November 30 through for her seizures, but no known etiology was found on imaging. Her fiance notes her psychiatrist also started her on Klonopin yesterday for a history of anxiety. 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 The patient is approximately 6 months , with her 5th , and has 3 children at home. Her fiance denies any recent headaches or diarrhea. The patient has experienced some nausea, but the fiance believes this is due to . The patient spoke to her fiance after the incident, but fell asleep during the ambulance ride. Her has been totally normal and healthy so far. Source of History: spouse/significant other (fiance) History Limited By: sedation (patient is asleep) Onset: 2 hours FOOD SERVICE DIRECTOR Position: other (global) Timing: resolved Associated Symptoms: + nausea, No headache, No diarrhea Review of Systems See HPI for pertinent positives & negatives. A total of 10 systems reviewed and were otherwise negative. Past Medical & Surgical Medical Problems: (1) Active labor at term (2) Anxiety (3) History of narcotic addiction (4) Tobacco use Surgical Problems: (1) Patient desires vaginal after section () (2) Previous section Social History Smoking Status: Current Every Day Smoker Alcohol Use: occasionally Drug Use: heroin Marital Status: single, in relationship Housing Status: lives with family Occupation Status: employed Current/Historical Medications Scheduled Levetiracetam (Keppra), 500 MG PO BID Methadone Hcl (Methadone Hcl), 54 ML PO DAILY Multivit/Min/Iron/Fol Ac/Pren ( Vitamin), 1 TAB PO DAILY Scheduled PRN Famotidine (Pepcid), 20 MG PO DAILY PRN for Indigestion Allergies Coded Allergies: Brompheniramine (Verified Allergy, Mild, RASH, 12/10/16) Phenylpropanolamine (Verified Allergy, Mild, RASH, 12/10/16) Physical Exam Vital Signs Date Time Temp Pulse Resp B/P (MAP) Pulse Ox O2 Delivery O2 Flow Rate FiO2 12/10/16 15:08 65 16 91/53 96 Room Air 12/10/16 15:07 93 12/10/16 14:10 74 12/10/16 14:07 36.5 72 18 94/51 95 Room Air Physical Exam GENERAL: Patient is in no acute distress. HEENT: Pupils are small but equal and reactive. No acute trauma, normocephalic atraumatic, mucous membranes moist, no nasal congestion, no scleral icterus. NECK: No stridor, no adenopathy, no meningismus, trachea is midline. LUNGS: Clear to auscultation bilaterally, no wheeze, no rhonchi, breath sounds equal. HEART: Without murmurs gallops or rubs, regular rate and rhythm. ABDOMEN: Soft, nontender, bowel sounds positive, no hernias, no peritonitis. EXTREMITIES: No cyanosis or edema, full range of motion of all the joints without pain or difficulty, no signs for acute trauma. NEUROLOGIC: Patient is somnolent, awakes to sternal rub, moves all extremities equally. SKIN: No rash, no jaundice, no diaphoresis. Medical Decision & Procedures ER Provider Diagnostic Interpretation: Radiology results as stated below per my review and radiologist interpretation: CT SCAN OF THE BRAIN WITHOUT IV CONTRAST CLINICAL HISTORY: Change in mental status. COMPARISON STUDY: CT of the brain dated 11/30/2016. TECHNIQUE: Unenhanced axial CT scan of the brain is performed from the vertex to the skull base. A dose lowering technique was utilized adhering to the principles of ALARA. CT DOSE: 638.56 mGycm FINDINGS: Brain parenchyma: The brain parenchyma is normal in appearance. There is no hemorrhage, mass effect, or evidence of acute territorial ischemia by CT criteria. Morales-white matter is preserved. No extra-axial fluid collection is seen. Ventricles, sulci, cisterns: Normal in configuration. Intracranial vasculature: The visualized intracranial vasculature at the skull base is normal in appearance. Calvarium: Unremarkable. Sinuses and mastoids: There is trace fluid in the right maxillary antrum. The remaining visualized paranasal sinuses are clear. The mastoid air cells are well pneumatized. Orbits: The bony orbits are grossly intact. IMPRESSION: No acute intracranial abnormality. No significant change from 11/30/2016. Electronically signed by: Kirt Mayo M.D. 12/10/2016 4:21 PM Laboratory Results 12/10/16 14:50 Red Blood Count 3.84, Mean Corpuscular Volume 91.1, Mean Corpuscular Hemoglobin 31.8, Mean Corpuscular Hemoglobin Concent 34.9, Mean Platelet Volume 10.1, Neutrophils (%) (Auto) 77.1, Lymphocytes (%) (Auto) 15.0, Monocytes (%) (Auto) 5.7, Eosinophils (%) (Auto) 1.8, Basophils (%) (Auto) 0.1, Neutrophils # (Auto) 5.95, Lymphocytes # (Auto) 1.16, Monocytes # (Auto) 0.44, Eosinophils # (Auto) 0.14, Basophils # (Auto) 0.01 12/10/16 14:50 Test 12/10/16 00:00 12/10/16 14:50 12/10/16 15:03 12/10/16 16:10 White Blood Count 7.72 K/uL (4.8-10.8) Red Blood Count 3.84 M/uL (4.2-5.4) Hemoglobin 12.2 g/dL (12.0-16.0) Hematocrit 35.0 % (37-47) Mean Corpuscular Volume 91.1 fL (80-100) Mean Corpuscular Hemoglobin 31.8 pg (25-34) Mean Corpuscular Hemoglobin Concent 34.9 g/dl (32-36) Platelet Count 247 K/uL (130-400) Mean Platelet Volume 10.1 fL (7.4-10.4) Neutrophils (%) (Auto) 77.1 % Lymphocytes (%) (Auto) 15.0 % Monocytes (%) (Auto) 5.7 % Eosinophils (%) (Auto) 1.8 % Basophils (%) (Auto) 0.1 % Neutrophils # (Auto) 5.95 K/uL (1.4-6.5) Lymphocytes # (Auto) 1.16 K/uL (1.2-3.4) Monocytes # (Auto) 0.44 K/uL (0.11-0.59) Eosinophils # (Auto) 0.14 K/uL (0-0.5) Basophils # (Auto) 0.01 K/uL (0-0.2) RDW Standard Deviation 43.0 fL (36.4-46.3) RDW Coefficient of Variation 12.9 % (11.5-14.5) Immature Granulocyte % (Auto) 0.3 % Immature Granulocyte # (Auto) 0.02 K/uL (0.00-0.02) Anion Gap 9.0 mmol/L (3-11) Est Creatinine Clear Calc Drug Dose 107.5 ml/min Estimated GFR () 133.9 Estimated GFR (Non- 115.5 BUN/Creatinine Ratio 16.7 (10-20) Calcium Level 8.3 mg/dl (8.5-10.1) Total Bilirubin 0.3 mg/dl (0.2-1) Aspartate Amino Transf (AST/SGOT) 29 U/L (15-37) Alanine Aminotransferase (ALT/SGPT) 24 U/L (12-78) Alkaline Phosphatase 110 U/L (45-117) Total Creatine Kinase 350 U/L (26-192) Total Protein 6.8 gm/dl (6.4-8.2) Albumin 3.2 gm/dl (3.4-5.0) Globulin 3.6 gm/dl (2.5-4.0) Albumin/Globulin Ratio 0.9 (0.9-2) Thyroid Stimulating Hormone (TSH) 0.746 uIu/ml (0.300-4.500) Chemistry Specimen Hemolysis Ethyl Alcohol mg/dL < 3.0 mg/dl (0-3) Urine Color DK YELLOW Urine Appearance CLEAR (CLEAR) Urine pH 6.0 (4.5-7.5) Urine Specific Magee 1.031 (1.000-1.030) Urine Protein TRACE (NEG) Urine Glucose (UA) NEG (NEG) Urine Ketones TRACE (NEG) Urine Occult Blood NEG (NEG) Urine Nitrite NEG (NEG) Urine Bilirubin NEG (NEG) Urine Urobilinogen NEG (NEG) Urine Leukocyte Esterase TRACE (NEG) Urine WBC (Auto) 1-5 /hpf (0-5) Urine RBC (Auto) 0-4 /hpf (0-4) Urine Hyaline Casts (Auto) 1-5 /lpf (0-5) Urine Epithelial Cells (Auto) >30 /lpf (0-5) Urine Bacteria (Auto) NEG (NEG) Urine Renal Epithelial Cells 5-10 /lpf (0-5) Urine Pathogenic Casts /lpf (0) Urine Mucus PRESENT (NONE PRSENT) Laboratory results reviewed by me. Medications Administered Medications (Trade) Dose Ordered Sig/Zayra Route Start Time Stop Time Status Last Admin Dose Admin Sodium Chloride 500 ml @ 999 mls/hr Q31M STAT IV 12/10/16 14:26 12/10/16 14:56 DC 12/10/16 14:26 999 MLS/HR Dextrose (Dextrose 50% 50ML Syringe) 25 ml NOW STAT IV 12/10/16 15:49 12/10/16 15:50 DC 12/10/16 16:25 25 ML Sodium Chloride 1,000 ml @ 200 mls/hr Q5H STAT IV 12/10/16 16:27 12/10/16 21:26 12/10/16 16:27 200 MLS/HR ECG Indication: syncope Rate (beats per minute): 69 Rhythm: normal sinus Findings: no ectopy, other (Non-specific T-wave changes, Poor R-wave progression) ED Course 1422: The patient was evaluated in room B9. A complete history and physical exam was performed. 1426: NSS 500 ml @ 999 mls/hr IV. 1549: Dextrose 25 ml IV. 1626: I reevaluated the patient. She is asleep on reevaluation, but still awakens to loud noise and a sternal rub. I discussed my recommendation she remain in the hospital for further evaluation and management and her fianc verbalized complete understanding and agreement. 1627: NSS 1000 ml @ 200 mls/hr IV. 1639: Nursing informed me there has been no change in the patients mental status after receiving D50. 1640: heart rate was documented at 130. 1700: I discussed the patients case [facility] The patient will be further evaluated. Medical Decision The differential diagnoses considered include medication reaction, overdose, alcohol abuse, infection, electrolyte imbalance, intracranial bleeding and anemia. There is no leukocytosis or concerning anemia. Renal panel testing shows a somewhat low glucose, no kidney failure. No hepatitis. Urinalysis does not show infection. Urine tox shows benzos, methadone, amphetamines and marijuana. Alcohol level is undetectable. The patient appears to be in a euthyroid state. EKG shows a sinus rhythm, no ischemia. Brain CT shows no acute bleed or mass effect. The patient was given IV saline for hydration. She received a small dose of IV dextrose, her sugar increased to the range of 200 but there was no change in her mental state. The patient remains somnolent and arousable to very loud voice or sternal rub. She has no focal one sided neurologic deficits. I suspect the patient is suffering from a medication reaction. She seems overly sedated from medications that she has taken. I suppose she may have taken an extra dose of medication although the fianc believes this is unlikely. I do think a hospital stay until her mental status clears is warranted. I don't find any source for infection, she is not febrile. heart tones are normal. Her has been uncomplicated thus far. I did speak to case management. The on-call hospitalist was consulted. Medication Reconcilliation Current Medication List: was personally reviewed by me Blood Pressure Screening Patient's blood pressure: Low blood pressure Consults Time Called: 1632 Consulting Physician: IMTIAZ Moore [facility] Returned Call: 1700 I discussed the patients case with IMTIAZ Moore [facility]. The patient will be further evaluated. Impression Primary Impression: Change in mental status Additional Impressions: Medication reaction Scribe Attestation The scribe's documentation has been prepared under my direction and personally reviewed by me in its entirety. I confirm that the note above accurately reflects all work, treatment, procedures, and medical decision making performed by me. Departure Information Dispostion Being Evaluated By Hospitalist Referrals Jose Luciano M.D. (PCP) Patient Instructions My [facility] Problem Qualifiers
[2016-12-10] MEDS ORDERED: LEVE500T13 PO (14:54)
[2016-12-10 15:07] VITALS: O2SAT 93
[2016-12-10 15:10] LABS: BASO % 0.1 %; BASO ABS # 0.01 K/uL (0-0.2); COMPLETE YES; EOS % 1.8 %; IG% 0.3 %; LYMPH ABS # 1.16 K/uL (1.2-3.4); MEAN CELL VOLUME 91.1 fL (80-100); MEAN CORPUSCULAR HEMOGLOBIN 31.8 pg (25-34); MEAN CORPUSCULAR HGB CONC 34.9 g/dl (32-36); MEAN PLATELET VOLUME 10.1 fL (7.4-10.4); MONO % 5.7 %; NEUT % 77.1 %; PLATELET COUNT 247 K/uL (130-400); RED BLOOD COUNT 3.84 M/uL (4.2-5.4); WHITE BLOOD COUNT 7.72 K/uL (4.8-10.8)
[2016-12-10 15:27] LABS: URINE APPEARANCE CLEAR (CLEAR); URINE BILIRUBIN NEG (NEG); URINE COLOR DK YELLOW; URINE EPITHELIAL CELL AUTO >30 /lpf (0-5); URINE NITRITE NEG (NEG); URINE SPECIFIC GRAVITY 1.031 (1.000-1.030); UROBILINOGEN NEG (NEG)
[2016-12-10 15:31] LABS: MANUAL MICROSCOPIC REQUIRED? NO; REVIEW REQ? YES
[2016-12-10 15:43] LABS: ALB/GLOB RATIO 0.9 (0.9-2); BUN/CREATININE RATIO 16.7 (10-20); CALCIUM 8.3 mg/dl (8.5-10.1); CREATININE 0.67 mg/dl (0.60-1.20); POTASSIUM 3.9 mmol/L (3.5-5.1); THYROID STIMULATING HORMONE 0.746 uIu/ml (0.300-4.500)
[2016-12-10] MEDS ORDERED: DEXTROSE 50% 50 ML SYR IV STA (15:49)
[2016-12-10 15:51] LABS: URINE MUCUS PRESENT (NONE PRSENT)
[2016-12-10 16:00] LABS: BENZODIAZEPINE, URINE POS (NEG); COCAINE,URINE NEG (NEG); PHENCYCLIDINE, URINE NEG (NEG)
--- NOTE | 2016-12-10 16:22 | DIAGNOSTIC IMAGING REPORT ---
CT SCAN OF THE BRAIN WITHOUT IV CONTRAST CLINICAL HISTORY: Change in mental status. COMPARISON STUDY: CT of the brain dated 11/30/2016. TECHNIQUE: Unenhanced axial CT scan of the brain is performed from the vertex to the skull base. A dose lowering technique was utilized adhering to the principles of ALARA. CT DOSE: 638.56 mGycm FINDINGS: Brain parenchyma: The brain parenchyma is normal in appearance. There is no hemorrhage, mass effect, or evidence of acute territorial ischemia by CT criteria. Morales-white matter is preserved. No extra-axial fluid collection is seen. Ventricles, sulci, cisterns: Normal in configuration. Intracranial vasculature: The visualized intracranial vasculature at the skull base is normal in appearance. Calvarium: Unremarkable. Sinuses and mastoids: There is trace fluid in the right maxillary antrum. The remaining visualized paranasal sinuses are clear. The mastoid air cells are well pneumatized. Orbits: The bony orbits are grossly intact. IMPRESSION: No acute intracranial abnormality. No significant change from 11/30/2016. Electronically signed by: Kirt Mayo M.D. 12/10/2016 4:21 PM Dictated Date/Time: 12/10/2016 4:19 PM
[2016-12-10] MEDS ORDERED: SODIUM CHLORIDE 0.9% 1000ML 1,000 ML IV STA (16:27)
[2016-12-10] MEDS ORDERED: ACETAMINOPHEN 325 MG TAB PO PRN (17:30)
[2016-12-10] MEDS ORDERED: ONDANSETRON INJ 2 MG/ML 2 ML VIAL IV PRN (17:30)
[2016-12-10] MEDS ORDERED: SODIUM CHLORIDE 0.9% 1000ML 1,000 ML IV SCH (17:30)
[2016-12-10] MEDS ORDERED: IV FLUIDS COMPLETED PRN (18:00)
[2016-12-10] MEDS ORDERED: NALOXONE HCL 0.4 MG/1 ML VIAL/CARP IV ONE (18:00)
--- NOTE | 2016-12-10 18:09 | Critical Care Consultation ---
Critical Care Consultation Date of Consultation: Dec 10, 2016. Attending Physician: Reason for Consultation: Hypotension with possible need for pressor support. History of Present Illness 31F at 28+1GA rh negative with a PMHx of substance abuse (on methadone) , new onset seizure disorder was BIBA for syncope in a retail store. Pt is drowsy and snowing during IV site placement. History obtained from Dr. Shaver and the [facility] Aurora Hernández. The story is that the pt was shopping with her fiance and another male friend and was found unconscious. Pt was recently seen in the ER on 11/30 for a witnessed seizure by the keyur that lasted approx 3 min. Once discharged from the ER she had a second seizure. PMHx: Sees Psychiatry active, recently had a boil in the left anticubital fossa lanced and completed a course of Abx, MRSA +'ve, CYS aware she is SHx: Per [facility] chart, CYS aware she is , Previously incarcerated. Engaged to keyur Hurt. Upon reexamined of the patient during her obstetrical test the patient was awake , alert and oriented. Patient does not know why she fell. SHe states she does not think she had a seizure because it 'doesn't feel like last time'. The only medications the patient stated she was taking was her Keepra and Klonopin and Methadone. She denies any IV drug use. She doesn't think she tripped. She does not know why she cannot remember. She was told that she was given Narcan. Patient wants to leave the hospital. She states that she just got a new job and doesn't want to lose it. She was supposed to be at work at 5pm. She states that she wants to leave AMA and that she is leaving tonight. Pt was not agitated, she was calm and expressed linear and logical thought processes. Patient was adament that staying in the hospital was against her wishes. I explained to the patient that we do not know what caused her symptoms, it could be neurological such as seizures, cardiac and that I could not in good casper recommend that she leaves the hospital. I states that if she leaves the hospital she could , have serious bodily injury, or her fetus could or sustain serious permanent injury. I called [id number] (yeimy Hurt) at approximately 7pm and nobody picked up. I rentered the patients room and she was talking to someone over the hospital phone and she was asking for a ride. I re-called Blu at approximately 7:15 and explained to Blu the course of events. I emphasized to Blu that we administered Narcan and that the affects of Narcan are short term and if she ingested an IV Opioid she may need additional Narcan once the initial dose wore off. He verbalized understanding. I also advised that I do not recommend the pt leave the hospital because she could injure herself or cause injury to the fetus. I also informed Blu that we cannot keep a patient against their consent. I returned to the patients room and initiated a teach back where she told me the adverse events that could happen if she left the hospital - she told me that she could or sustain serious bodily injury or the fetus could and sustain serious bodily injury. The patient signed the AMA consent form at approximately 7:43pm. The patient is eating and is awaiting transport home by one of her friends, Bayron. ROS: No chest pain, no SOB, no dyspnea on exertion, no palpitations, no fevers, no chills, no nausea, no vomiting, no diarrhea, no dysuria, no rash. Social History Smoking Status: Current Every Day Smoker Drug Use: heroin Marital Status: single, in relationship Housing Status: lives with family Occupation Status: employed Allergies Coded Allergies: Brompheniramine (Verified Allergy, Mild, RASH, 12/10/16) Phenylpropanolamine (Verified Allergy, Mild, RASH, 12/10/16) Home Medications Scheduled Levetiracetam (Keppra), 500 MG PO BID Methadone Hcl (Methadone Hcl), 54 ML PO DAILY Multivit/Min/Iron/Fol Ac/Pren ( Vitamin), 1 TAB PO DAILY Scheduled PRN Famotidine (Pepcid), 20 MG PO DAILY PRN for Indigestion Current Inpatient Medications Current Inpatient Medications Medications (Trade) Dose Ordered Sig/Zayra Route Start Time Stop Time Status Last Admin Dose Admin Sodium Chloride 1,000 ml @ 200 mls/hr Q5H STAT IV 12/10/16 16:27 12/10/16 21:26 12/10/16 16:27 200 MLS/HR Sodium Chloride 1,000 ml @ 999 mls/hr Q1H1M IV 12/10/16 17:30 12/10/16 18:30 Acetaminophen (Tylenol Tab) 650 mg Q4H PRN PO 12/10/16 17:30 01/09/17 17:29 Ondansetron HCl (Zofran Inj) 4 mg Q6H PRN IV 12/10/16 17:30 11 17:29 Miscellaneous (Iv Fluids Completed) 1 ea PRN PRN N/A 12/10/16 18:00 12/10/17 17:59 UNV Review of Systems Constitutional: No fever, No chills, No sweats, No weight loss Respiratory: No cough, No sputum, No shortness of breath Cardiovascular: No chest pain Abdomen: No pain, No nausea, No vomiting, No diarrhea Musculoskeletal: No joint pain Genitourinary - Female: No dysuria Neurologic: No memory loss, No weakness Psychiatric: No anxiety, No insomnia Endocrine: No fatigue Integumentary: No rash Physical Exam Date Time Temp Pulse Resp B/P (MAP) Pulse Ox O2 Delivery O2 Flow Rate FiO2 12/10/16 17:42 57 14 81/47 98 12/10/16 17:07 57 16 80/46 98 Room Air 12/10/16 15:08 65 16 91/53 96 Room Air 12/10/16 15:07 93 12/10/16 14:10 74 12/10/16 14:07 36.5 72 18 94/51 95 Room Air General Appearance: well-appearing, WD/WN Eyes: PERRLA Respiratory: breath sounds normal, clear to auscultation, clear to percussion, no tenderness Cardiovasular: regular rate/rhythm, normal S1S2, no M/G/R Abdomen: other (patient is prengant, abdomen is appropriately sized for a 28week gestation) Back: normal inspection Upper Extremities: no edema Lower Extremities: no edema Neuro: alert, oriented x 3, normal motor exam, normal sensation, normal cerebellar exam, normal speech, normal gait, normal memory Psychiatric: normal affect, no suicidal ideation Laboratory Results Last 24 Hours Test 12/10/16 00:00 12/10/16 14:50 12/10/16 15:03 12/10/16 16:10 Urine Opiates Screen NEG Urine Methadone, Qualitative POS Urine Barbiturates NEG Urine Phencyclidine (PCP) Level NEG Ur Amphetamine/Methamphetamine POS MDMA (Ecstasy) Screen NEG Urine Benzodiazepines Screen POS Urine Cocaine Metabolite NEG Urine Marijuana (THC) POS White Blood Count 7.72 K/uL Red Blood Count 3.84 M/uL Hemoglobin 12.2 g/dL Hematocrit 35.0 % Mean Corpuscular Volume 91.1 fL Mean Corpuscular Hemoglobin 31.8 pg Mean Corpuscular Hemoglobin Concent 34.9 g/dl Platelet Count 247 K/uL Mean Platelet Volume 10.1 fL Neutrophils (%) (Auto) 77.1 % Lymphocytes (%) (Auto) 15.0 % Monocytes (%) (Auto) 5.7 % Eosinophils (%) (Auto) 1.8 % Basophils (%) (Auto) 0.1 % Neutrophils # (Auto) 5.95 K/uL Lymphocytes # (Auto) 1.16 K/uL Monocytes # (Auto) 0.44 K/uL Eosinophils # (Auto) 0.14 K/uL Basophils # (Auto) 0.01 K/uL RDW Standard Deviation 43.0 fL RDW Coefficient of Variation 12.9 % Immature Granulocyte % (Auto) 0.3 % Immature Granulocyte # (Auto) 0.02 K/uL Sodium Level 141 mmol/L Potassium Level 3.9 mmol/L Chloride Level 109 mmol/L Carbon Dioxide Level 23 mmol/L Anion Gap 9.0 mmol/L Blood Urea Nitrogen 11 mg/dl Creatinine 0.67 mg/dl Est Creatinine Clear Calc Drug Dose 107.5 ml/min Estimated GFR () 133.9 Estimated GFR (Non- 115.5 BUN/Creatinine Ratio 16.7 Random Glucose 57 mg/dl Calcium Level 8.3 mg/dl Total Bilirubin 0.3 mg/dl Aspartate Amino Transf (AST/SGOT) 29 U/L Alanine Aminotransferase (ALT/SGPT) 24 U/L Alkaline Phosphatase 110 U/L Total Creatine Kinase 350 U/L Total Protein 6.8 gm/dl Albumin 3.2 gm/dl Globulin 3.6 gm/dl Albumin/Globulin Ratio 0.9 Thyroid Stimulating Hormone (TSH) 0.746 uIu/ml Chemistry Specimen Hemolysis Ethyl Alcohol mg/dL < 3.0 mg/dl Urine Color DK YELLOW Urine Appearance CLEAR Urine pH 6.0 Urine Specific [place] 1.031 Urine Protein TRACE Urine Glucose (UA) NEG Urine Ketones TRACE Urine Occult Blood NEG Urine Nitrite NEG Urine Bilirubin NEG Urine Urobilinogen NEG Urine Leukocyte Esterase TRACE Urine WBC (Auto) 1-5 /hpf Urine RBC (Auto) 0-4 /hpf Urine Hyaline Casts (Auto) 1-5 /lpf Urine Epithelial Cells (Auto) >30 /lpf Urine Bacteria (Auto) NEG Urine Renal Epithelial Cells 5-10 /lpf Urine Pathogenic Casts /lpf Urine Mucus PRESENT Test 12/10/16 16:32 12/10/16 17:40 12/10/16 17:42 12/10/16 17:49 Bedside Glucose 205 mg/dl Test 12/10/16 17:53 Assessment & Plan 31 year old female at 28+1 weeks GA with a PMHx of polysubstance abuse and a new onset seizure disorder p/w syncope and is currently in an obtunded state. Neuro: * Obtunded, awakens to sternal rub. Pt was given Narcan in the ER. Urine was positive for Methadone, Meth, Benzos and Marijuana. * CT Head negative. * Seizure: On Keppra and Clonazepam for one week, unsure if this is an actual seizure disorder, would be rare to have a new onset seizure disorder in a 31F, because of her polysubstance abuse history she may be taking Psychoactive drugs that are precipitating these seizures, the urine tox screen does not detect all psychoactive compounds - specifically synthetic cannaboids are undetectable. * Seizure precautions. * Consult Neurology. * End tidal CO2 monitor. * Pain control: will need to restart Methadone + Tylenol PRN. CV - * Hypotension: is known to decrease BP. Last BPs in the OBGYN clinic were 108/66 (oct), 110/58 (sep) * Pt received 1.5L in the ER. Will infuse Normosol 200mls/hr. OBGYN * , currently 28+1 GA, follows with [facility] but has only had 3 visits this , was previously with [facility]. * Rh negative. * Will get heart tones. * OBGYN consult on board. Resp - * X-ray results showed no acute process. Renal/ - * Creatinine is WNL. * IVF for hypotension as above. GI/Diet - * NPO * CPK is elevated at 350, will trend Q6x2. Endo - * Electrolytes: Na+ 141, K+ 3.9, Mg2+ Phosphorous WNL. Heme - * Hgb 12.1, Platelets 247. * DVT Proph: SCDs, hopeful for early ambulation once suspected toxins clear system. ID - * Afebrile, no WBC count, cultures drawn in the ER, will follow. * MRSA positive, contact precautions. Full Code Update: Patient has regained all of her faculties after Narcan administration at 5:40pm. Please see the above. She was advised to return to the hospital if her symptoms or lethargy returns. She was told that we do not have an etiology of her condition and that she should remain in the hospital. She is putting her life and her fetus' life at risk. She verbalized that she did have safe transport home with a friend named Bayron - safe transport was also confirmed over the phone with her fiance Blu who separately told me that Bayron was coming to pick the patient up. Resident Physician Supervision Note: Dr. Farooq was resident physician during care of patient. I separately evaluated patient and did history and exam. I discussed the case with the resident and generally agree with the findings and plan. I saw the patient initially in the emergency department who had just received a small dose of Narcan and was starting to regain an appropriate level of consciousness. At that time the patient was critically ill due to depressed level of consciousness and the plan was to observe her in the ICU. Toxin ingestion have not been completely ruled out at that point. Subsequent to my examination when she was seen by the resident she remained abdomen appropriate level of consciousness and additional labs were returned indicating that there should not be a life-threatening ingestion. From the report of my resident as well as the ED physician the patient had decisional capacity, was able to teach back the risks of her leaving AGAINST MEDICAL ADVICE to my resident and opted to leave AGAINST MEDICAL ADVICE.. I did consider seizures, the patient has recently been admitted for new onset seizure. This does not appear to be related to preeclampsia and any form, there is no elevation of her liver enzymes, the patient's blood pressure was within normal limits, there is no protein on urinalysis. I have personally spent 40 minutes of critical care time in the direct management of this patient. This is a life/limb threatening event. This includes time spent evaluating patient, direct bedside care, chart review, placing orders, interpretation of diagnostic studies, discussion with consultants, patient, and family members, as well as other required patient management activities. This time is exclusive of all separately billable procedures, and teaching time and separate from and in addition to any other critical care service time. Documented By: Vipul Medina DO Resident Involvement: Resident Care Provided Care Provided: Adult [facility]
[2016-12-10] MEDS ORDERED: NORMOSOL R 1,000 ML IV SCH (18:30)
[2016-12-10 18:32] LABS: VEN BLD GAS O2 SATURATION < 60.0 %; VEN BLOOD GAS BASE EXCESS -3.5 mEq/L; VENOUS BLOOD GAS PCO2 56 mmHg (38.0-50.0); VENOUS BLOOD GAS PO2 20 mmHg
--- NOTE | 2016-12-10 18:55 | History and Physical ---
History & Physical Date & Time of Service: Dec 10, 2016 at 18:03 Chief Complaint: Syncope Primary Care Physician: Jose Luciano M.D. History of Present Illness Source: patient, clinic records, hospital records This is a 31 y/o female who is currently 28 weeks (calculated from last OB note), history of seizure on Keppra, history of narcotic addiction on methadone, GERD, who presents to the ED with AMS. No family is currently present at the bedside. No hx could be obtained from patient due to AMS. Pt was recently admitted to [facility] from Nov 30- for new onset seizure. No apparent etiology was found. Ct head was negative. There was no evidence of pre- eclampsia or recent use of etoh or drug use. EEG was mildly diffusely abnormal reflecting postictal slowing or nonspecific generalized encephalopathy. Pt was seen by neurology (Dr. Bray) and started on Keppra. Reportedly from ER provider's history, patient's fiance reported that 2 hours PHOTOGRAPHIC DOUBLE patient slumped over while shopping. There was no reported head trauma. Reportedly patient was normal yesterday but was very tired earlier today. Pt's fiance reported that pt' s psychiatrist started her on Klonopin yesterday for anxiety. Her fiance admitted to patient experiencing nausea attributed to . Her fiance had denied PANIAGUA or diarrhea. Per ER provider there was no reported seizure activity. In ER pt's blood glucose was 57, given dextrose with repeat BSG 200 but no improvement of mental status. Pt is somnolent in the ER, awakening briefly to loud verbal stimulation. She was given Narcan after my initial exam which mildly improved her somnolence per nursing. Per ER provider, heart tones were strong. Patient's BP's were initially 90's systolic in the ER but dropped to 70s's-80's systolic. She will be admitted to the ICU for close monitoring. Past Medical/Surgical History Medical Problems: (1) Anxiety Status: Chronic (2) GERD (gastroesophageal reflux disease) Status: Chronic (3) History of narcotic addiction Permanent Comment: currently in methadone program Status: Chronic (4) History of seizure Status: Chronic (5) Tobacco use Status: Chronic Surgical Problems: (1) Previous section Status: Chronic Family History Unable to obtain due to AMS. Social History Not able to be verified due to AMS. Smoking Status: Current Every Day Smoker Drug Use: heroin Marital Status: single, in relationship Housing status: lives with family Occupational Status: employed Immunizations History of Influenza Vaccine: Unknown History of Tetanus Vaccine?: Unknown History of Pneumococcal: Unknown History of Hepatitis B Vaccine: Unknown Multi-Drug Resistant Organisms History of MDRO: No Allergies Coded Allergies: Brompheniramine (Verified Allergy, Mild, RASH, 12/10/16) Phenylpropanolamine (Verified Allergy, Mild, RASH, 12/10/16) Home Medications Scheduled Levetiracetam (Keppra), 500 MG PO BID Methadone Hcl (Methadone Hcl), 54 ML PO DAILY Multivit/Min/Iron/Fol Ac/Pren ( Vitamin), 1 TAB PO DAILY Scheduled PRN Famotidine (Pepcid), 20 MG PO DAILY PRN for Indigestion Review of Systems Unable to perform ROS due to altered mental status. Physical Exam Vital Signs Date Time Temp Pulse Resp B/P (MAP) Pulse Ox O2 Delivery O2 Flow Rate FiO2 12/10/16 17:07 57 16 80/46 98 Room Air 12/10/16 15:08 65 16 91/53 96 Room Air 12/10/16 15:07 93 12/10/16 14:10 74 12/10/16 14:07 36.5 72 18 94/51 95 Room Air General Appearance: + thin, + pertinent finding (somnolent 31 y/o female lying in bed, awakens briefly to loud verbal stimulation, groans and falls back to sleep within a few seconds) Head: normocephalic, atraumatic Eyes: normal inspection, PERRL ENT: normal ENT inspection (normal external inspection) Neck: supple, trachea midline Respiratory/Chest: lungs clear, normal breath sounds, no respiratory distress, no accessory muscle use, + pertinent finding (saturating well on RA ) Cardiovascular: regular rate, rhythm, no murmur, normal peripheral pulses Abdomen/GI: normal bowel sounds, non tender, soft, + pertinent finding (gravid uterus) Extremities/Musculoskelatal: no calf tenderness, no pedal edema Neurologic/Psych: + pertinent finding (neuro exam limited due to somnolence) Skin: normal color, warm/dry Diagnostics Laboratory Results Results Past 24 Hours Test 12/10/16 00:00 12/10/16 14:50 12/10/16 15:03 12/10/16 16:10 Range/Units Urine Opiates Screen NEG NEG Urine Methadone, Qualitative POS NEG Urine Barbiturates NEG NEG Urine Phencyclidine (PCP) Level NEG NEG Ur Amphetamine/Methamphetamine POS NEG MDMA (Ecstasy) Screen NEG NEG Urine Benzodiazepines Screen POS NEG Urine Cocaine Metabolite NEG NEG Urine Marijuana (THC) POS NEG White Blood Count 7.72 4.8-10.8 K/uL Red Blood Count 3.84 4.2-5.4 M/uL Hemoglobin 12.2 12.0-16.0 g/dL Hematocrit 35.0 37-47 % Mean Corpuscular Volume 91.1 80-100 fL Mean Corpuscular Hemoglobin 31.8 25-34 pg Mean Corpuscular Hemoglobin Concent 34.9 32-36 g/dl Platelet Count 247 130-400 K/uL Mean Platelet Volume 10.1 7.4-10.4 fL Neutrophils (%) (Auto) 77.1 % Lymphocytes (%) (Auto) 15.0 % Monocytes (%) (Auto) 5.7 % Eosinophils (%) (Auto) 1.8 % Basophils (%) (Auto) 0.1 % Neutrophils # (Auto) 5.95 1.4-6.5 K/uL Lymphocytes # (Auto) 1.16 1.2-3.4 K/uL Monocytes # (Auto) 0.44 0.11-0.59 K/uL Eosinophils # (Auto) 0.14 0-0.5 K/uL Basophils # (Auto) 0.01 0-0.2 K/uL RDW Standard Deviation 43.0 36.4-46.3 fL RDW Coefficient of Variation 12.9 11.5-14.5 % Immature Granulocyte % (Auto) 0.3 % Immature Granulocyte # (Auto) 0.02 0.00-0.02 K/uL Sodium Level 141 136-145 mmol/L Potassium Level 3.9 3.5-5.1 mmol/L Chloride Level 109 98-107 mmol/L Carbon Dioxide Level 23 21-32 mmol/L Anion Gap 9.0 3-11 mmol/L Blood Urea Nitrogen 11 7-18 mg/dl Creatinine 0.67 0.60-1.20 mg/dl Est Creatinine Clear Calc Drug Dose 107.5 ml/min Estimated GFR () 133.9 Estimated GFR (Non- 115.5 BUN/Creatinine Ratio 16.7 10-20 Random Glucose 57 70-99 mg/dl Calcium Level 8.3 8.5-10.1 mg/dl Total Bilirubin 0.3 0.2-1 mg/dl Aspartate Amino Transf (AST/SGOT) 29 15-37 U/L Alanine Aminotransferase (ALT/SGPT) 24 12-78 U/L Alkaline Phosphatase 110 45-117 U/L Total Creatine Kinase 350 26-192 U/L Total Protein 6.8 6.4-8.2 gm/dl Albumin 3.2 3.4-5.0 gm/dl Globulin 3.6 2.5-4.0 gm/dl Albumin/Globulin Ratio 0.9 0.9-2 Thyroid Stimulating Hormone (TSH) 0.746 0.300-4.500 uIu/ml Chemistry Specimen Hemolysis Ethyl Alcohol mg/dL < 3.0 0-3 mg/dl Urine Color DK YELLOW Urine Appearance CLEAR CLEAR Urine pH 6.0 4.5-7.5 Urine Specific [place] 1.031 1.000-1.030 Urine Protein TRACE NEG Urine Glucose (UA) NEG NEG Urine Ketones TRACE NEG Urine Occult Blood NEG NEG Urine Nitrite NEG NEG Urine Bilirubin NEG NEG Urine Urobilinogen NEG NEG Urine Leukocyte Esterase TRACE NEG Urine WBC (Auto) 1-5 0-5 /hpf Urine RBC (Auto) 0-4 0-4 /hpf Urine Hyaline Casts (Auto) 1-5 0-5 /lpf Urine Epithelial Cells (Auto) >30 0-5 /lpf Urine Bacteria (Auto) NEG NEG Urine Renal Epithelial Cells 5-10 0-5 /lpf Urine Pathogenic Casts 0 /lpf Urine Mucus PRESENT NONE PRSENT Test 12/10/16 16:32 12/10/16 17:40 12/10/16 17:42 12/10/16 17:49 Range/Units Bedside Glucose 205 70-90 mg/dl Test 12/10/16 17:53 Range/Units Microbiology Results 12/10/16 Blood Culture, Ordered Pending 12/10/16 Blood Culture, Ordered Pending Diagnostic Radiology CT SCAN OF THE BRAIN WITHOUT IV CONTRAST CLINICAL HISTORY: Change in mental status. COMPARISON STUDY: CT of the brain dated 11/30/2016. TECHNIQUE: Unenhanced axial CT scan of the brain is performed from the vertex to the skull base. A dose lowering technique was utilized adhering to the principles of ALARA. CT DOSE: 638.56 mGycm FINDINGS: Brain parenchyma: The brain parenchyma is normal in appearance. There is no hemorrhage, mass effect, or evidence of acute territorial ischemia by CT criteria. Morales-white matter is preserved. No extra-axial fluid collection is seen. Ventricles, sulci, cisterns: Normal in configuration. Intracranial vasculature: The visualized intracranial vasculature at the skull base is normal in appearance. Calvarium: Unremarkable. Sinuses and mastoids: There is trace fluid in the right maxillary antrum. The remaining visualized paranasal sinuses are clear. The mastoid air cells are well pneumatized. Orbits: The bony orbits are grossly intact. IMPRESSION: No acute intracranial abnormality. No significant change from 11/30/2016. EKG NSR, 69 bpm, cannot rule anterior infarct, age undetermined, nonspecific ST and T wave abnormality, when compared with EKG 01-DEC-2016 16:18, nonspecific T wave abnormality now evident in Anterior leads, R wave voltage V3 has decreased , as confirmed by cardiology read, also reviewed by me Impression Assessment and Plan AMS Ddx includes multiple drug ingestion (mildly improved with Narcan dose), r/o infection, ? related to seizure Urine drug screen positive for methadone, amphetamines, benzodiazepine, marijuana No apparent electrolyte derangement or evidence of infection CT head negative Pending studies- magnesium, acetaminophen level, salicylate level, VBG, lactic acid, blood cultures, urine culture CPK mildly elevated which could be seizure related, will trend Consult neurology 1:1 observation Will give 1 dose of IV ceftriaxone HYPOTENSION SBP dropped from 90s to 70s-80s systolic, improved to 110s systolic with IVF's Received 1.5 L NSS in ER, another 1 liter bolus NSS running, then will start normosol 200 mL/hour Afebrile, no leukocytosis UA abnormal but not clearly infected Check lactic acid, blood cultures, urine culture Will give dose of IV ceftriaxone x 1 HISTORY OF SEIZURE New onset in early November, no etiology was found, at that time CT head was negative, there was no evidence of pre-eclampsia or recent use of etoh or drug use, EEG was mildly diffusely abnormal reflecting postictal slowing or nonspecific generalized encephalopathy, pt seen by Dr. Bray and started on Keppra No reported seizure activity, however cannot be ruled out that AMS was related to seizure Hold Keppra for now Seizure precautions Consult neurology , 28 WEEKS heart tones normal per ER provider Follows with [facility] who was consulted, spoke with Dr. Boyce monitoring per OB NARCOTIC ADDICTION Hold methadone for now [place] PRESCRIPTION DRUG MONITORING PROGRAM DOCUMENTATION PDMP database queried. Findings: last Klonopin Rx was from her PCP Dr. Luciano back in April 2016, no controlled substance Rx after that time Action taken: hold benzo's, narcotics at this time DVT PROPHYLAXIS SCD's FULL CODE DISPOSITION Admission ICU Follows with Dr. Luciano for primary care Patient seen in collaboration with Dr. Borrego. Please see his addendum. ADDENDUM: This is a 31 year old female who is 28 weeks with a history of narcotic abuse, hx. of Suboxone use, hx. of seizures presents with unresponsiveness, hypotension. As per friends/family at bedside - she took methadone and Klonopin. Unsure how much. U-tox shows +methadone, Benzo, marijuana use. Given one dose of Narcan in the ED. Blood pressure improved and patient became responsive, but did not want to talk much. Transferred to ICU for monitoring heart monitoring done in the ED. Later received a call stating patient would be signing out AMA. Due to her having mental capacity to make this decision - she was allowed to leave AMA. Level of Care Critical Care Resuscitation Status FULL RESUSCITATION VTE Prophylaxis VTE Risk Assessment Done? Y/N: Yes Risk Level: Moderate Given or contraindicated: SCD's
[2016-12-10] MEDS ORDERED: CEFTRIAXONE SOD INJ 1 GM ADDVIAL IV STA (19:04)
[2016-12-10 19:16] LABS: MAGNESIUM 2.2 mg/dl (1.8-2.4)
[2016-12-10 19:31] LABS: ACETAMINOPHEN < 2 ug/ml (10-30)
[2016-12-10 19:49] VITALS: BP 123/69; PULSE 103; O2SAT 97
--- NOTE | 2016-12-10 20:19 | GYNECOLOGICAL CONSULTATION ---
DATE OF CONSULTATION: 12/10/2016 CHIEF COMPLAINT: Syncope. HISTORY OF PRESENT ILLNESS: A 31-year-old female approximately 28 weeks whom I am asked to see in consult by Aurora Hernández PA-C, for above chief complaint in light of . The patient is complicated. She had a recent admission for new-onset seizures in . She was evaluated in early November by my colleague Dr. Espinosa in light of this new finding in her . A long history and physical is in her [facility] chart from 11/30/2016 is reviewed. It was ultimately determined that she was not having a -related seizure and she was kept in-house for management by neurology and was stabilized and discharged to home. During that time, she did have heart tones checked and ultimately was discharged on Keppra. The patient notes she has been home for approximately 1 week and felt unwell on Keppra. She specifically notes that she felt that it was making her anxious. For that reason, she saw her family doctor who is known to her with long history of anxiety. Apparently they opted to start her on Klonopin. The patient notes that she took her first dose and did feel groggy after it, but because of her anxiety, took her next dose and apparently her fiance noted her to be slumping over and she was brought to the Emergency Department. The patient of note has a history of narcotic addiction and is now on methadone. By the time I saw the patient, she is able to communicate and tells me that her fetus has been moving normally prior to this event. She denies any obstetrical symptoms like contractions, leaking or bleeding vaginally. She reported no pain in her abdomen. No trauma to her abdomen that she knows of. She did not feel like she was having a seizure prior to this event. She denied any headache. She expressed frustration with her current management of her seizures as she feels like the medicine that she is being given is making her anxiety worse. She has used Klonopin successfully in the past in conjunction with her psychiatrist oer her report. She is scheduled to be back in the OB office on December 14 for her next visit. OBSTETRICAL HISTORY: 4, para 2-0-1-3. Her EDC for this is 03/03/2017 by a 15-week ultrasound. Her other deliveries were a in 2003, a vaginal after in 2010 and in 2016 another vaginal after . PAST GYNECOLOGIC HISTORY: No history of STDs or abnormal Pap smears. She does have a history of depression. MEDICAL HISTORY: History of drug use, depression, MRSA in a boil. PAST SURGICAL HISTORY: section. ALLERGIES: DIMETAPP. MEDICATIONS: Vitamins. Keppra, Klonopin, Methadone. Other medications per [employer]. SOCIAL HISTORY: She is a cigarette smoker. Denies alcohol in the . She denies other use of drugs. REVIEW OF SYSTEMS: As per the HPI. PHYSICAL EXAMINATION: VITAL SIGNS: Temperature 36.9, pulse 78, respirations 16, blood pressure 98/60, her pulse ox is 100% on room air. GENERAL: She is lying in bed, able to communicate, and responds to my questions easily. ABDOMEN: Soft, gravid, and nontender. EXTREMITIES: No edema. Nonstress test currently being performed with a baseline heart rate of 125 with small accelerations to the 130s. Approximately 10 minutes of the study had been performed during my interview/exam with the patient. ASSESSMENT: 1. A 28-week intrauterine . 2. Syncopal episode with complicated medication history. 3. History of methadone use. 4. Seizure disorder. PLAN: I discussed with the patient that I was asked to see her for obstetrical evaluation. I did feel like a nonstress test was important given that she was unresponsive at that time and she talked about good movement. I do feel that if this nonstress test is normal, we can continue with heart tone checks during her hospitalization and have her only reevaluated if she reported decreased movement or any signs and symptoms of labor. I do think she needs to discuss her medications with her admitting physician as she raises concern that they are causing her untoward side effects. She is to follow up in the OB office as scheduled. YOVANA
--- NOTE | 2016-12-10 22:09 | EMERGENCY ROOM VISIT NOTE ---
ED Visit Note First contact with patient: 14:21 The patient was seen by the medicine team. She received Narcan per their orders and the patient became more alert. She was interactive and now refusing to stay in the hospital. The patient did eat a meal, she remained awake. She is adamant that she is leaving. She was told that she would need to sign out AGAINST MEDICAL ADVICE, she understands. She understands the risks of going home and the possibility of recurrence of her somnolence. She understands the risk to her unborn child. She was told that things could become life-threatening. She understands and is going home. She is competent to make her own decisions, she is oriented 3. She was given a ride home by her friends/family.
== END 2016-12-10 19:51 | disposition left against medical advice (07) ==
LOC: EDBD 13:53 → C.EDB 13:54 → ENRESERV 17:58 → EDBEDREQSVC 18:02 → EDBEDREQ 18:02 → ENRESERV 18:05 → CANBEDREQ 19:46 → C.EDB 19:51
DX: R55 Syncope and collapse (principal); T88.7XXA Unspecified adverse effect of drug or medicament, initial encounter; O99.353 Diseases of the nervous system complicating pregnancy, third trimester; G40.909 Epilepsy, unspecified, not intractable, without status epilepticus; O26.893 Other specified pregnancy related conditions, third trimester; R11.0 Nausea; O99.343 Other mental disorders complicating pregnancy, third trimester; F41.9 Anxiety disorder, unspecified; O99.333 Smoking (tobacco) complicating pregnancy, third trimester; F17.200 Nicotine dependence, unspecified, uncomplicated; Z79.899 Other long term (current) drug therapy; O9A.213 Injury, poisoning and certain other consequences of external causes complicating pregnancy, third trimester; X58.XXXA Exposure to other specified factors, initial encounter; Z3A.28 28 weeks gestation of pregnancy

== ENCOUNTER 2017-02-26 18:21 | Inpatient (IN) | payer OTHER ==
[~2017-02-26] VITALS: Ht 165.1 cm; Wt 59.1 kg
[2017-02-26] MEDS ORDERED: LACTATED RINGER'S 1000ML 1,000 ML IV SCH ×2 (18:44→21:36)
[2017-02-26] MEDS ORDERED: LACTATED RINGER'S 1000ML 1,000 ML IV PRN (18:44)
[2017-02-26] MEDS ORDERED: PENICILLIN G POTASSIUM IV 3 MU in DEXTROSE 5% 100ML 100 ML IV PRN (18:45)
[2017-02-26] MEDS ORDERED: PENICILLIN G POTASSIUM IV 6 MU in DEXTROSE 5% 250ML 250 ML IV ONE (19:15)
--- NOTE | 2017-02-26 19:27 | History & Physical Bridge Note ---
H&P Re-Evaluation Bridge Note: I have examined the patient, reviewed the History & Physical and in the interval since the performance of the History & Physical I have noted the following changes of clinical significance: The patient's tracing has had one acceleration during the time she has been on L&D. Persistent minimal variability. I believe the baby has limited reserve, due to her severe IUGR, and persistent Cat 2 tracing. Patient has h/o x 1, will proceed to at this time. Patient is agreeable. Informed consent obtained.
[2017-02-26] MEDS ORDERED: CITRIC ACID/SODIUM CITRATE 15 ML UDC PO ONE (19:30)
[2017-02-26] MEDS ORDERED: CEFAZOLIN IV 2,000 MG in SYRINGE 0 ML IV SCH (19:30)
[2017-02-26] MEDS ORDERED: MoRPHine SULFATE PF 1 MG/ML 10 ML AMP/VIAL ONE (19:43)
[2017-02-26] MEDS ORDERED: OXYTOCIN INJ 10 UNITS/ML VIAL ONE ×3 (19:43→21:21)
[2017-02-26] MEDS ORDERED: FENTANYL CITRATE INJ 50 MCG/1 ML 2 ML VIAL ONE (19:44)
[2017-02-26 20:03] LABS: HEMATOCRIT 39.8 % (37-47); HEMOGLOBIN 13.4 g/dL (12.0-16.0); MEAN CELL VOLUME 92.3 fL (80-100); MEAN CORPUSCULAR HEMOGLOBIN 31.1 pg (25-34); MEAN CORPUSCULAR HGB CONC 33.7 g/dl (32-36); MEAN PLATELET VOLUME 10.1 fL (7.4-10.4); PLATELET COUNT 300 K/uL (130-400); RED CELL DISTRIBUTION WIDTH CV 14.4 % (11.5-14.5); RED CELL DISTRIBUTION WIDTH SD 48.4 fL (36.4-46.3); WHITE BLOOD COUNT 5.01 K/uL (4.8-10.8)
[2017-02-26 20:10] LABS: ALBUMIN 2.1 gm/dl (3.4-5.0); ALT/SGPT 11 U/L (12-78); AST/SGOT 18 U/L (15-37); BLOOD UREA NITROGEN 13 mg/dl (7-18); CALCIUM 8.3 mg/dl (8.5-10.1); CARBON DIOXIDE 22 mmol/L (21-32); GLUCOSE 54 mg/dl (70-99); POTASSIUM 4.1 mmol/L (3.5-5.1); SODIUM 135 mmol/L (136-145)
[2017-02-26 20:13] LABS: ALKALINE PHOSPHATASE 211 U/L (45-117)
[2017-02-26] MEDS ORDERED: EpHEDrine SULFATE 50MG/5ML SYR ONE (20:24)
[2017-02-26] MEDS ORDERED: PHENYLEPHRINE 100MCG/ML 5ML SYR ONE (20:24)
[2017-02-26] MEDS ORDERED: CARBOPROST TROMETHAMINE 250 MCG/ML AMP ONE (20:34)
[2017-02-26] MEDS ORDERED: ONDANSETRON INJ 2 MG/ML 2 ML VIAL ONE (20:39)
[2017-02-26] MEDS ORDERED: GLYCOPYRROLATE INJ 0.2 MG/ML VIAL ONE (20:47)
[2017-02-26] MEDS ORDERED: ESMOLOL HCL 10 MG/ML 10 ML VIAL ONE (20:58)
[2017-02-26] MEDS ORDERED: METOPROLOL TARTRATE 1 MG/ML VIAL ONE (21:22)
[2017-02-26] MEDS ORDERED: LACTATED RINGER'S 1000ML 500 ML IV PRN (21:42)
[2017-02-26] MEDS ORDERED: NALOXONE HCL INJ 1 MG in SODIUM CHLORIDE 0.9% 1000ML 1,000 ML IV PRN (21:42)
[2017-02-26] MEDS ORDERED: NALOXONE HCL INJ 0.08 MG in SYRINGE 1.8 ML IV PRN (21:42)
[2017-02-26] MEDS ORDERED: SODIUM CHLORIDE 0.9% 1000ML 1,000 ML IV PRN (21:42)
[2017-02-26] MEDS ORDERED: NO NARCOTICS OR SEDATIVES SCH (21:45)
[2017-02-26] MEDS ORDERED: EpHEDrine SULFATE INJ 50 MG/ML AMP IV PRN (21:45)
[2017-02-26] MEDS ORDERED: MEPERIDINE HCL 25 MG/ML CARP IV PRN (21:45)
[2017-02-26] MEDS ORDERED: HYDROCORTISONE ACETATE 25 MG SUPP PR PRN (21:45)
[2017-02-26] MEDS ORDERED: NALBUPHINE HCL INJ 10 MG/ML 1ML AMP IV PRN (21:45)
[2017-02-26] MEDS ORDERED: MoRPHine SULFATE 2 MG/ML CARP IV PRN (21:45)
[2017-02-26] MEDS ORDERED: DC INTRASPINAL MORPHINE SCH (21:45)
[2017-02-26] MEDS ORDERED: BENZOCAINE 20% AER SPR 82.5 GM CAN EXT PRN (21:45)
[2017-02-26] MEDS ORDERED: ONDANSETRON INJ 2 MG/ML 2 ML VIAL IV PRN (21:45)
[2017-02-26] MEDS ORDERED: DiphenhydrAMINE HCL 50 MG/ML VIAL IV PRN (21:45)
[2017-02-26] MEDS ORDERED: MAGNESIUM HYDROXIDE SUSP 30 ML UDC PO PRN (21:45)
[2017-02-26] MEDS ORDERED: NALOXONE HCL 0.4 MG/1 ML VIAL/CARP IV PRN (21:45)
[2017-02-26] MEDS ORDERED: LANOLIN OINT EXT PRN (21:45)
[2017-02-26] MEDS ORDERED: SUPERCREAM 0.870 % 15GM JAR EXT PRN (21:45)
[2017-02-26] MEDS ORDERED: MoRPHine SULFATE PF 1 MG/ML 10 ML AMP/VIAL EPI PRN (21:45)
--- NOTE | 2017-02-26 21:55 | [facility] Operative Report ---
Operative Report Operative Date Feb 26, 2017. Pre-Operative Diagnosis 1. 31-year-old 103 at 39 weeks 2 days 2. Severe IUGR with elevated UA dopplers 3. Persistent category 2 tracing 4. History of section 1 5. History of drug use and current methadone use 6. Noncompliance Post-Operative Diagnosis same Procedure(s) Performed Repeat low transverse section Surgeon Mariela Pressley D.O. Medical Research Associate Surgeon(s) Padmini Hernández RN Estimated Blood Loss 600 Findings Viable female Apgars 9 and 9. Weight 4 pounds 0.8 ounces. Normal- appearing uterus fallopian tubes and ovaries. Drains Barney catheter clear yellow urine Anesthesia spinal Complication(s) None Disposition Recovery Room / PACU Indications Patient is a 31-year-old at 39 weeks 2 days. She had been diagnosed with severe IUGR at her last visit on 02/16/2017 ultrasound showed elevated umbilical artery Dopplers. Consultation between Dr. Louis and maternal medicine at [facility] resulted in a decision to deliver that day. The patient was instructed to report directly to labor and delivery, [facility] however she never arrived. She was contacted multiple times, yesterday [facility] services as well as the local police were called to go to her home to discuss necessity of delivery for the safety of the baby, however the patient went her home and was not reachable after this. Today, the patient arrived unannounced to labor and delivery requesting to be delivered. heart tracing showed heart tones of 115, minimal variability with no accelerations and no decelerations. She was not regularly sofia. I discussed with the patient the necessity to expedite delivery due to nonreassuring tracing, as well as the likelihood given IUGR status that the baby would not tolerate a prolonged labor. She was agreeable to undergo section. She was counseled and informed consent was obtained. We proceeded to the OR. Description of Procedure The patient was taken to the operating room and given spinal anesthesia. On the way to the operating room she had a moderate gush of bright red blood. In the operating room we were unable to adequately auscultate heart tones and therefore the decision was made to proceed with stat section. A Betadine splash was used the patient received 2 g of Ancef preoperatively. Timeout was confirmed. A scalpel was used to create a Pfannenstiel skin incision and carried through to the underlying layer of fascia. The fascia was nicked midline and assistance incision was extended bilaterally. The superior aspect of the fascial incision was grasped with Mario clamps 2 elevated off the underlying rectus abdominis muscles and dissected bluntly and sharply. In similar fashion, the inferior aspect of the fascial incision was dissected. The rectus abdominis muscles were entered bluntly digitally at midline and this incision was extended similarly, the peritoneum was identified was entered. Bladder blade was placed the bladder flap was created using Metzenbaum scissors. A new scalpel was used to make the uterine incision. The infant was delivered from a cephalic presentation, within membranes. The membranes were ruptured after delivery of the head. The anterior followed by the posterior shoulder were delivered followed by the body the cord was doubly clamped and cut and the baby was handed off to the waiting chief architect. A cord segment was retained for cord gases, and cord blood was obtained. The placenta was then removed spontaneously intact with three-vessel cord. The uterus was exteriorized and the hysterotomy incision was reapproximated using 0 Vicryl in a running locked stitch. A second a second layer of the same suture was used to imbricate the incision. Additional sutures of 0 Vicryl were used to obtain excellent hemostasis. The uterus was then placed back in the abdomen and excellent hemostasis was observed. The gutters were cleared of all clots and debris the rectus abdominis muscles were reapproximated using 2-0 chromic in interrupted stitches. The fascia was reapproximated using 0 Vicryl in a running stitch. The subcutaneous continue his tissue was reapproximated using interrupted stitches of 2-0 plain gut suture. The skin was reapproximated using 4-0 Vicryl in a running subcuticular stitch. Sponge instrument and needle counts were correct at the conclusion of the case the patient tolerated delivery well was taken to her room in stable and good condition. I attest to the content of the Intraoperative Record and any orders documented therein. Any exceptions are noted below.
[2017-02-26] MEDS ORDERED: OXYTOCIN INJ 30 UNITS in LACTATED RINGER'S 1000ML 1,000 ML IV SCH (22:00)
--- NOTE | 2017-02-26 22:08 | HISTORY & PHYSICAL EXAMINATION ---
DATE OF ADMISSION: 02/26/2017 CHIEF COMPLAINT: Intrauterine growth restriction. HISTORY OF PRESENT ILLNESS: The patient is a 31-year-old G4, P2-1-0-3 at 39 weeks 2 days with complicated by intrauterine growth restriction, also complicated by drug dependence with methadone use, noncompliance, history of section x1 with successful x2, depression, group B strep carrier, common migraine, Rh negative status, seizure disorder, and anemia. The patient had been recommended for delivery by Dr. Louis on 02/16/2017 after her ultrasound that day showed severe IUGR with an increased S/D ratio. After discussion per Dr. Louis and Dr. Sherman at [facility], the recommendation was for delivery. Dr. Louis had discussed with the patient at that time and requested that she report directly to Labor and Delivery for further evaluation. The patient never showed up to Labor and Delivery office and attempted to contact the patient multiple times, and she did not answer phone calls. Yesterday, Dr. Louis called [facility] to update them that the patient had not been reachable and had not presented to the hospital for delivery. Both [facility] and the local police went to the patient's house multiple times throughout the day in an attempt to convince her to come to the hospital for delivery. She refused and then left the premises and we did not hear from her again until she arrived today unannounced to Labor and Delivery. She states today that she feels that she is having occasional cramps and since it was recommended that she be delivered due to severe IUGR, she presented today. She states at this time that the baby is moving well. She denies vaginal bleeding or gushing of fluid and again reports occasional cramping. PAST MEDICAL HISTORY: Depression, history of addiction to pain pills, currently using methadone 75 mg daily, and has history of incarceration. PAST SURGICAL HISTORY: section x1. SOCIAL HISTORY: History of incarceration, half pack per day smoker, history of drug use. Has had positive drug screens for benzodiazepines in , is currently using methadone. FAMILY HISTORY: Denies. REVIEW OF SYSTEMS: Negative except as described above. MEDICATIONS: vitamins and methadone. ALLERGIES: DIMETAPP SINUS GIVES HIVES. PHYSICAL EXAMINATION: VITAL SIGNS: Stable, afebrile. GENERAL IMPRESSION: Awake, alert and oriented x3, no acute distress. CARDIOVASCULAR: Regular rate and rhythm. S1, S2. No murmurs, gallops, or rubs. LUNGS: Clear to auscultation bilaterally. ABDOMEN: Gravid, soft, nontender to palpation. EXTREMITIES: No edema. No calf tenderness. NEUROLOGIC: No obvious deficits. LABORATORY DATA: Blood type A negative, rubella immune, GBS positive carrier status. ASSESSMENT: 1. A 31-year-old G4, P2-1-0-3 at 39 weeks 2 days. 2. Severe intrauterine growth retardation. 3. Severe noncompliance. 4. History of drug use, currently on methadone. PLAN: We will proceed with urgent delivery. heart tracing, heart rate 120s, minimal variability. After monitoring for 40 minutes, upon arrival to Labor and Delivery, no accelerations, no decelerations due to known IUGR status and persistent minimal variability tracing. We will proceed with section.
[2017-02-26 23:15] VITALS: Ht 165.1 cm; Wt 59.1 kg
[2017-02-26] MEDS ORDERED: OXCA300T PO (23:27)
--- NOTE | 2017-02-26 23:43 | Anesthesiology Progress Note ---
Anesthesia Post Op Note Date & Time Feb 26, 2017 at 23:40 Notes Mental Status: alert / awake / arousable, participated in evaluation Pt Amnestic to Procedure: Yes Nausea / Vomiting: adequately controlled Pain: adequately controlled Airway Patency, RR, SpO2: stable & adequate BP & HR: stable & adequate, see Notes Hydration State: stable & adequate Neuraxial Anesthesia: was administered, sensory block is resolving Anesthetic Complications: no major complications apparent The patient was noted to become bradycardic with PVCs during the procedure. She was given glycopyrrolate and then became tachycardic. She was then given esmolol and metoprolol. Her HR came down to the 90s in sinus rhythm. She was noted to be hypothermic in recovery so a Puneet Hugger was placed on her. Her temperature is now increasing. She is otherwise stable and comfortable.
[2017-02-27] VITALS (16 sets, daily range): BP systolic 90–109; BP diastolic 48–66; PULSE 56–67; TEMP 36.3–36.9; O2SAT 94–98
--- NOTE | 2017-02-27 01:10 | NUR ---
Received patient to room 439 at 0110. Patient was oriented to room and unit- verbalized understanding.
--- NOTE | 2017-02-27 04:30 | NUR ---
Pain control discussed with patient at this time. Pain rating goal of a 4 agreed upon by this RN and patient. Patient to be given pain medication for pain rating 7 out of 10, heating pad also to be given to patient. This RN encouraged patient to let RN know if pain is not relieved by medication and heating pad- patient verbalized understanding and agreeable to plan of care at this time.
[2017-02-27] MEDS: KETOROLAC TROMETHAMINE 30 MG/ML VIAL IV. PRN ×2 (04:43→10:49)
--- NOTE | 2017-02-27 06:41 | NUR ---
This RN asked patient where she received her Methadone- patient stated she goes to "[facility]". Anisa Haile, RN called [facility] and spoke to the dosage nurse, Ramona. Ramona verified patient's methadone dose of 75mg.
--- NOTE | 2017-02-27 06:57 | Progress Note ---
Subjective Feb 27, 2017. Subjective conversation w/ patient, physical exam Ambulation: ambulating normally Voiding: no voiding problems Passing Gas: Yes Diet Tolerance: Clear Liquids Lochia: Moderate Feeding Type: Bottle Feeding Pain: controlled Review of Systems Constitutional: No problem reported Respiratory: No problem reported Cardiac: No problem reported Breast: No problem reported Abdomen: No problem reported Female : No problem reported Objective Vital Signs Date Time Temp Pulse Resp B/P (MAP) Pulse Ox O2 Delivery O2 Flow Rate FiO2 02/27/17 05:40 16 95 02/27/17 04:30 36.3 60 16 100/57 (71) 96 Room Air 02/27/17 04:30 16 96 02/27/17 03:30 16 96 02/27/17 02:40 16 96 02/27/17 01:30 96 Room Air 02/27/17 01:30 36.6 64 16 99/64 (76) 96 Room Air 02/27/17 01:30 16 96 02/27/17 01:30 96 Room Air Physical Exam General Appearance: WELL-APPEARING, NO APPARENT DISTRESS Respiratory/Chest: no respiratory distress Cardiovascular: regular rate, rhythm Abdomen: non tender, soft Fundus: Firm Incision Description: Clean, Dry & Intact Extremities: normal inspection Laboratory Results Last 24 Hours Test 02/26/17 18:30 02/26/17 19:40 02/27/17 06:00 Urine Opiates Screen NEG Urine Methadone, Qualitative POS Urine Barbiturates NEG Urine Phencyclidine (PCP) Level NEG Ur Amphetamine/Methamphetamine NEG MDMA (Ecstasy) Screen NEG Urine Benzodiazepines Screen POS Urine Cocaine Metabolite NEG Urine Marijuana (THC) POS White Blood Count 5.01 K/uL Red Blood Count 4.31 M/uL Hemoglobin 13.4 g/dL Hematocrit 39.8 % Mean Corpuscular Volume 92.3 fL Mean Corpuscular Hemoglobin 31.1 pg Mean Corpuscular Hemoglobin Concent 33.7 g/dl RDW Standard Deviation 48.4 fL RDW Coefficient of Variation 14.4 % Platelet Count 300 K/uL Mean Platelet Volume 10.1 fL Sodium Level 135 mmol/L Potassium Level 4.1 mmol/L Chloride Level 106 mmol/L Carbon Dioxide Level 22 mmol/L Anion Gap 7.0 mmol/L Blood Urea Nitrogen 13 mg/dl Creatinine 0.70 mg/dl Estimated GFR () 131.9 Estimated GFR (Non- 113.8 BUN/Creatinine Ratio 18.9 Random Glucose 54 mg/dl Calcium Level 8.3 mg/dl Total Bilirubin 0.2 mg/dl Direct Bilirubin < 0.1 mg/dl Aspartate Amino Transf (AST/SGOT) 18 U/L Alanine Aminotransferase (ALT/SGPT) 11 U/L Alkaline Phosphatase 211 U/L Total Protein 6.0 gm/dl Albumin 2.1 gm/dl Globulin 3.9 gm/dl Albumin/Globulin Ratio 0.5 Assessment and Plan Problem List Medical Problems: (1) Change in mental status Status: Acute (2) Medication reaction Status: Acute (3) Status: Acute Post-Op Day#: 1 Continue Routine Care: POD#1 s/p repeat section Patient is doing well. Today, recommend increase activity and PO hydration. Adoptive parents are en route, have not yet arrived from [place]. [facility] has been contacted.
[2017-02-27 07:45] LABS: EOS % 0.6 %; EOS ABS # 0.05 K/uL (0-0.5); HEMATOCRIT 29.1 % (37-47); HEMOGLOBIN 9.7 g/dL (12.0-16.0); IG# 0.02 K/uL (0.00-0.02); LYMPH % 17.3 %; LYMPH ABS # 1.42 K/uL (1.2-3.4); MEAN CELL VOLUME 90.4 fL (80-100); MEAN CORPUSCULAR HEMOGLOBIN 30.1 pg (25-34); MEAN CORPUSCULAR HGB CONC 33.3 g/dl (32-36); MEAN PLATELET VOLUME 9.7 fL (7.4-10.4); MONO % 4.9 %; NEUT ABS # 6.33 K/uL (1.4-6.5); PLATELET COUNT 309 K/uL (130-400); RED CELL DISTRIBUTION WIDTH SD 46.7 fL (36.4-46.3); WHITE BLOOD COUNT 8.22 K/uL (4.8-10.8)
[2017-02-27] MEDS ORDERED: PATIENT'S OWN CONTROLLED MED PO SCH (08:00)
[2017-02-27] MEDS: SIMETHICONE 80 MG CHEW PO SCH ×4 (08:26→19:56)
[2017-02-27] MEDS: DOCUSATE SODIUM 100 MG CAP PO SCH ×2 (08:27→19:56)
[2017-02-27] MEDS: OXCARBAZEPINE 150 MG TAB PO SCH ×2 (08:27→19:56)
[2017-02-27] MEDS: METHADONE ORAL SOLN 2 MG/1ML PO SCH (08:27)
--- NOTE | 2017-02-27 09:57 | NUR ---
Case Management: This mother has a planned adoption thru [facility] [employer] and is represented by [employer]. I have notified Jia (cell [phone]) at [facility] that pt is here and delivered a female. They will have no further involvement as long as the adoption goes thru. Per Jia this pt does not have custody of her other children. I spoke with Laura (cell [phone]) at [facility]. She was made aware that pt is here and delivered an infant female last pm. I met with pt this am and asked if she wants to proceed with the adoption and she has given her consent and signed the Adoption Authorization form for [facility] [place] allowing release of information to [facility] and also allowing adoptive parents Essie and Vel Owusu from [place] to render care. I did verify Gisell's address and she provided me with an updated phone number of [phone]. CECILIA Mejia with be coming in later today. I updated pt's nurse and 's nurse with the new phone number. I spoke with Sophie Acevedo who confirms that she is the legal representation for this pt. She is having her coworker Rico Langford come in at 1530 today to meet with pt and/or adoptive parents. Per Sophie they will be having adoptive parents sign a thorough risk statement at discharge so that they have been educated on potential issues for this . They are not able to provide someone to be here to meet with adoptive parents when they arrive and per Sophie this has not been the protocol in the past. Addendum: 02/27/17 at 1640 by Jania Short SERV Adoptive parents are nesting in room 475 and I provided them with a list of local hotels as well. Rico from Sophie Acevedo's office was in to meet with Gisell and then met with the adoptive parents.
[2017-02-27] MEDS ORDERED: NICOTINE 14 MG/24 HR TDSY TD ONE (13:00)
[2017-02-27] MEDS ORDERED: KETOROLAC TROMETHAMINE 30 MG/ML VIAL IV. PRN (14:00)
[2017-02-27] MEDS ORDERED: ONDANSETRON INJ 2 MG/ML 2 ML VIAL IV PRN (14:00)
[2017-02-27] MEDS ORDERED: DiphenhydrAMINE HCL 50 MG/ML VIAL IV PRN (14:00)
[2017-02-27] MEDS: OXYCODONE/ACETAMINOPHEN 5-325 TAB PO PRN ×3 (14:50→23:43)
[2017-02-27] MEDS: IBUPROFEN 600 MG TAB PO PRN ×3 (14:50→23:42)
--- NOTE | 2017-02-27 16:00 | NUR ---
Gisell's boyfriend, mother, and oldest daughter came in to visit her.
--- NOTE | 2017-02-27 16:45 | NUR ---
Patient requested and received two pictures of the baby that the Nursery personnel took for her. She cried a little and said she decided not to see the baby at all.
[2017-02-27] MEDS ORDERED: BISACODYL 5 MG TABEC PO ONE (22:00)
[2017-02-28] MEDS: IBUPROFEN 600 MG TAB PO PRN ×2 (06:13→10:22)
[2017-02-28] MEDS: OXYCODONE/ACETAMINOPHEN 5-325 TAB PO PRN ×2 (06:13→10:22)
[2017-02-28 06:37] LABS: HEMATOCRIT 26.4 % (37-47); HEMOGLOBIN 8.7 g/dL (12.0-16.0)
--- NOTE | 2017-02-28 06:54 | OB/GYN Progress Note ---
[facility] Progress Note Date of Service Feb 28, 2017. Subjective conversation w/ patient, physical exam, chart review, lab review Ambulation: ambulating normally Voiding: no voiding problems Passing Gas: Yes Diet Tolerance: Clear Liquids Lochia: Small Feeding Type: Bottle Feeding Review of Systems Constitutional: No fever, No chills Respiratory: No cough, No shortness of breath Cardiac: No chest pain, No edema Abdomen: No pain, No nausea, No vomiting Female : No dysuria Objective Vital Signs Date Time Temp Pulse Resp B/P (MAP) Pulse Ox O2 Delivery O2 Flow Rate FiO2 02/27/17 23:45 36.9 58 16 105/65 (78) Room Air 02/27/17 23:45 Room Air 02/27/17 20:00 36.8 67 18 109/66 (80) 96 Room Air 02/27/17 15:30 98 Room Air 02/27/17 15:30 36.8 66 22 99/61 (74) 98 Room Air 02/27/17 13:30 20 95 02/27/17 12:30 20 95 02/27/17 12:30 36.5 56 20 90/48 (62) 95 Room Air 02/27/17 11:30 24 95 02/27/17 10:30 20 95 02/27/17 09:30 22 94 02/27/17 08:30 20 96 02/27/17 08:30 36.8 56 20 91/61 (71) 96 Room Air 02/27/17 08:30 36.8 56 20 91/61 (71) 96 Room Air 02/27/17 08:30 95 Room Air 02/27/17 07:30 22 95 Physical Exam General Appearance: WELL-APPEARING, WD/WN, NO APPARENT DISTRESS Respiratory/Chest: chest non-tender, lungs clear Cardiovascular: regular rate, rhythm, no murmur Abdomen: non tender, soft Fundus: Firm, Relation to Umbilicus (at the level of the umbilicus ) Extremities: no pedal edema, no calf tenderness Laboratory Results Last 24 Hours Test 02/27/17 06:50 02/28/17 05:57 White Blood Count 8.22 K/uL Red Blood Count 3.22 M/uL Hemoglobin 9.7 g/dL 8.7 g/dL Hematocrit 29.1 % 26.4 % Mean Corpuscular Volume 90.4 fL Mean Corpuscular Hemoglobin 30.1 pg Mean Corpuscular Hemoglobin Concent 33.3 g/dl Platelet Count 309 K/uL Mean Platelet Volume 9.7 fL Neutrophils (%) (Auto) 77.0 % Lymphocytes (%) (Auto) 17.3 % Monocytes (%) (Auto) 4.9 % Eosinophils (%) (Auto) 0.6 % Basophils (%) (Auto) 0.0 % Neutrophils # (Auto) 6.33 K/uL Lymphocytes # (Auto) 1.42 K/uL Monocytes # (Auto) 0.40 K/uL Eosinophils # (Auto) 0.05 K/uL Basophils # (Auto) 0.00 K/uL RDW Standard Deviation 46.7 fL RDW Coefficient of Variation 14.0 % Immature Granulocyte % (Auto) 0.2 % Immature Granulocyte # (Auto) 0.02 K/uL Assessment and Plan Post-Op Day Number: 2 Continue Routine Care: 31 yo female now 4 delivered via csection on 02/26/2017 20:25 @ 39.2 wks Pt is GBS-/A-/RI. Pt is doing well clinically. Vitals were reviewed and within normal limits. Hgb 13.4 at admission, 8.7 today Plan; 1. Advance diet today 2. Continue pp care; encourage ambulation, monitor bleeding control pain Resident Physician Supervision Note: I was present with Dr. Salguero during the history and exam. I discussed the case with the resident and agree with the findings and plan as documented in the note. Any exceptions or clarifications are listed here: POD#2 healing well after section. Baby is going to foster care or adoption - the potential adoptive parents are here, but have not yet made the decision whether to go through with adoption. Patient will receive depo shot prior to discharge per her request. F/U 6w office. Will request social security assessor to see patient prior to discharge. Documented By: Mariela Pressley
[2017-02-28 07:30] VITALS: BP 102/64; PULSE 77; TEMP 37
--- NOTE | 2017-02-28 07:30 | NUR ---
Asked patient how she is doing emotionally today. She does not immediately respond, but thought for a moment and said "mmm...ok." Encourage patient to verbalize feelings if desired. Offered to be a listening ear for anything she needs/wants to talk about. Patient declines to discuss anything at this time but verbalizes appreciation of the offer.
[2017-02-28] MEDS ORDERED: NICOTINE 14 MG/24 HR TDSY TD SCH (08:00)
[2017-02-28] MEDS: SIMETHICONE 80 MG CHEW PO SCH (08:06)
[2017-02-28] MEDS: OXCARBAZEPINE 150 MG TAB PO SCH (08:06)
[2017-02-28] MEDS: DOCUSATE SODIUM 100 MG CAP PO SCH (08:07)
[2017-02-28] MEDS: METHADONE ORAL SOLN 2 MG/1ML PO SCH (08:08)
--- NOTE | 2017-02-28 08:32 | Discharge Instructions ---
Discharge Instructions Date of Service Feb 28, 2017. Admission Reason for Admission: IUGR Discharge Discharge Diagnosis / Problem: csection delivery Discharge Goals Goal(s): Routine recovery after Medications Continue Dispensed Medications: supercream, dermaplast, tucks, lansinoh Activity Recommendations Activity Limitations: per Instructions/Follow-up section . Instructions / Follow-Up Instructions / Follow-Up ACTIVITY RECOMMENDATIONS: * Gradual return to full activity over the next 2-3 weeks. * No lifting - nothing heavier than baby over the next 2-3 weeks. * Do not engage in vigorous exercise, sexual activity or sports until cleared by your physician. * Do not drive or operate any motorized equipment until cleared by your physician. * You may shower/bathe daily. MEDICATIONS: For discomfort or pain, you may use Acetaminophen (Tylenol), Ibuprofen (Advil), or Naproxen (Aleve) following the package directions. For constipation you may use Colace following the package directions. BREAST CARE: If you are not breast feeding: * Wear a supportive bra 24 hours a day for one to two weeks. * Avoid stimulating your breasts and nipples as much as possible during the first few weeks after delivery. * When taking a shower, have the warm water hit your back, not breasts. * When your breasts feel full, apply ice packs. Usually three to four times a day helps ease the discomfort. * Take a mild pain medication (Tylenol / Motrin) when you are uncomfortable. If breast feeding: * Use breast milk to lubricate nipples. Lansinoh cream may be used for sore nipples. You do not need to remove cream prior to breast feeding. If using a different brand of cream, check the label for directions regarding removal of cream prior to nursing. * Wear a supportive bra. * If having problems with breasts or breast feeding, call a consultant electronics or your health care provider. SPECIAL CARE INSTRUCTIONS: When you are discharged from the hospital, it is important for you to follow the instructions listed below: * During the first week at home, you should be able to care for yourself and your baby. In addition, the usual light household activities are encouraged. * Limit your activities to the way you feel. Do not try to clean the house or move furniture. Be sensible. * If you actively engage in sports and have done so up until the time of your delivery, you may resume these activities as soon as you feel able. This may take up to one month or even longer. Use good judgment. * Continue to take your vitamins for at least six weeks after the of your baby. * Your diet need not be limited unless you were on a special diet before your delivery. Breast-feeding mothers need around 2500 calories per day and at least 64-80 ounces of fluid per day (8 to 10 glasses). * You should eat foods from the four major food groups. Crash diets or fad diets are to be avoided. Eating lean meats, fresh fruits and vegetables, low-fat dairy products, high fiber foods and a regular exercise program, will help you get back to your pre- weight without putting your health at risk. * Constipation is sometimes a problem after delivery. Take a mild laxative as needed. If breast feeding, Milk of Magnesia is acceptable to use. You may use a suppository or Fleets enema. * A daily shower or tub bath is suggested. Wash incision daily with warm soapy water and pat dry. It doesn't need to be covered unless drainage is present. * A bloody vaginal discharge will usually continue until around four weeks . A small amount of bleeding may continue for as long as six weeks. Vaginal discharge changes from the bright red bleeding after delivery to pink then brownish and finally yellowish-pink before becoming white and disappearing. * Bleeding may increase with activity. Your first period may come in 4-8 weeks. If you are breast feeding, your period may be delayed even longer. * [place] (sex) can begin whenever both you and your partner feel comfortable and do not have any form of genital infection. It is recommended that you wait at least six weeks for internal and external healing to occur. If you have questions, please talk to your health care practitioner. A condom should be used to prevent infection and . * Foreplay, gentle intercourse and lubrication is very important the first several times to prevent pain. A water-based lubricant such as K-Y jelly or Astroglide may be used. * If you have RH negative blood and your baby is RH positive, you will receive RHOGAM by injection prior to discharge. The nurse will give you a card to keep with you that has the date and place that you received RHOGAM after delivery. * During your care, you had a Rubella screen done to check for the presence of rubella antibodies in your blood. If your test was negative, you will receive a Rubella vaccine prior to discharge. This vaccine may cause a fever, soreness at the injection site and flu-like symptoms. If these symptoms persist, notify your health care practitioner. is not advised for one month after a Rubella vaccine. * Verbalizes understanding of car seat law as reviewed with patient nursing. * Car Seat hand-out given and reviewed with patient by nursing. * Shaken baby information reviewed with patient by nursing. Call you doctor if: * Heavy bleeding (saturating several pads an hour) or passing clots the size of your fist. * A fever >101 degrees F (38.3 degrees C) on two occasions four hours apart and /or chills. * Unusual pain in the pelvic or vaginal areas. * Call the doctor for any increased redness, drainage or swelling around the incision and any pain unrelieved by prescribed pain medication. * "Baby Blues" lasting longer than two weeks. If you have any questions or concerns, call your health care practitioner at . FOLLOW UP VISIT: * Please call the office at to schedule a 6 week examination. It is important you keep this appointment. It is important for you to make arrangements for either yearly or twice yearly check-ups thereafter. Current Hospital Diet Patient's current hospital diet: Regular OB Diet Discharge Diet Recommended Diet: Regular OB Diet Procedures Procedures Performed: Repeat low transverse section Pending Studies Studies pending at discharge: no Medical Emergencies . Who to Call and When: Medical Emergencies: If at any time you feel your situation is an emergency, please call [phone] immediately. . Non-Emergent Contact Non-Emergency issues call your: Social Welfare Research Worker . . "Provider Documentation" section prepared by Rafat Salguero. . VTE Core Measure Inpt VTE Proph given/why not?: SCD's
[2017-02-28] MEDS ORDERED: OXYC-57 PO (08:54)
[2017-02-28] MEDS ORDERED: MedroxyPROGESTERone ACETATE 150 MG/ML 1 ML VIAL IM ONE (09:30)
--- NOTE | 2017-02-28 10:55 | NUR ---
Patient confirms that she spoke with Lori Short from case management yesterday. Denies having any further questions or need for another case management visit. Spoke with Lori Short. She reports that she has all necessary paperwork from patient. Does not need to see patient again. Made her aware that patient plans to go home later today. She sees no problem with this.
--- NOTE | 2017-02-28 11:00 | NUR ---
Case Management: Pt is ready for discharge today. I did contact Rico from Sophie Acevedo's office to inform as she was up to meet with mom yesterday. Pt has signed all the [facility] authorizations needed for the adoption process. I spoke with pt's nurse and she stated that pt did not have any other needs at this time.
--- NOTE | 2017-02-28 11:15 | NUR ---
Patient wear winter coat and attempting to leave unit. Stopped her and discussed that she should not be wearing nicotine patch and smoking. She says, "yeah, I'm going to take [the patch] off." Encouraged patient to take wheelchair if she insists upon leaving the unit. Patient agreeable to this. Wheelchair provided. Patient instructed to return to unit immediately if she has excessive bleeding or other emergent conditions. Verbalizes understanding.
[2017-02-28 11:50] VITALS: BP_DIAS 64; PULSE 77; TEMP 37
--- NOTE | 2017-02-28 11:50 | NUR ---
Given discharge instructions; pt verbalizes understanding. Provided with percocet prescription to have filled at pharmacy of her choice. Leaves unit in wheelchair with boyfriend and mother.
[2017-02-28] MEDS ORDERED: BISACODYL 10 MG SUPP PR PRN (21:45)
--- NOTE | 2017-03-12 12:25 | Discharge Summary ---
Discharge Summary Date of Service Mar 12, 2017. Discharge Summary Admission Date: Feb 26, 2017 at 18:53 Discharge Date: Feb 28, 2017 Discharge Disposition: Home Principal Diagnosis: IUGR Immunizations: Have You Had Influenza Vaccine: Unknown History of Tetanus Vaccine?: Unknown History of Pneumococcal: Unknown History of Hepatitis B Vaccine: Unknown Procedures: Repeat low transverse section Consultations: Anesthesiology, information services assistant Medication Reconciliation Continued Medications: Famotidine (Pepcid) 20 Mg Tab 20 MG PO DAILY PRN for Indigestion, TAB Methadone Hcl (Methadone Hcl) 10 Mg/5 Ml Ivelisse 54 ML PO DAILY Multivit/Min/Iron/Fol Ac/Pren ( Vitamin) Tab 1 TAB PO DAILY, TAB Oxcarbazepine (Trileptal) 300 Mg Tab 300 MG PO, TAB Discharge Exam Please see progress note from day of discharge. Hospital Course Patient was admitted at the time of arrival 02/26/17, repeat section was performed, she underwent routine postoperative recovery, and was discharged to home in stable condition POD#2 02/28/17. Please see operative report for details of delivery. Total Time Spent: Less than 30 minutes This includes examination of the patient, discharge planning, medication reconciliation, and communication with other providers. Discharge Instructions Please refer to the electronic Patient Visit Report (Discharge Instructions) for additional information. Follow-Up Office 6w.
[2017-06-07] MEDS ORDERED: ATV5 PO (14:50)
== END 2017-02-28 11:50 | disposition home or self-care (01) | DRG 765 ==
LOC: C.OPB 18:21 → C.LD 18:22 → C.OPB 18:52 → C.LD 18:53 → C.OBG 02-27 01:19
PROVIDERS: ADMIT Obstetrics & Gynecology; ATTEND Obstetrics & Gynecology
PROC: 10D00Z1 Extraction of Products of Conception, Low, Open Approach (ICD-10-PCS; principal; 2017-02-26 19:45)
DX: O36.5930 Maternal care for other known or suspected poor fetal growth, third trimester, not applicable or unspecified (principal); O99.324 Drug use complicating childbirth; F11.20 Opioid dependence, uncomplicated; O34.211 Maternal care for low transverse scar from previous cesarean delivery; O76 Abnormality in fetal heart rate and rhythm complicating labor and delivery; O99.334 Smoking (tobacco) complicating childbirth; F17.200 Nicotine dependence, unspecified, uncomplicated; Z3A.39 39 weeks gestation of pregnancy; Z22.330 Carrier of Group B streptococcus; Z91.19 Patient's noncompliance with other medical treatment and regimen; Z37.0 Single live birth

== ENCOUNTER 2017-03-16 11:16 | Emergency (ER) | payer OTHER ==
[~2017-03-16] VITALS: Ht 165.1 cm; Wt 51.0 kg
[~2017-03-16 11:16] MED LIST changes: -LEVE500T13 PO; +OXCA300T PO
[2017-03-16 11:23] VITALS: TEMP 37.2; Ht 165.1 cm; Wt 51.0 kg
[2017-03-16 11:32] VITALS: O2SAT 93
[2017-03-16] MEDS ORDERED: MIRT30TA3 PO (11:37)
[2017-03-16] MEDS ORDERED: OXCARBAZEPINE 150 MG TAB PO STA (11:38)
[2017-03-16] MEDS ORDERED: METH10CO PO (11:41)
--- NOTE | 2017-03-16 11:46 | EMERGENCY ROOM VISIT NOTE ---
History Report prepared by Aron: Jose Cardenas Under the Supervision of: Dr. Brannon Estrada M.D. First contact with patient: 11:29 Chief Complaint: SEIZURE Stated Complaint: SEIZURE History of Present Illness The patient is a 31 year old female who presents to the Emergency Room with complaints of a seizure that occurred recently. She has a past medical history of a seizure disorder that began a couple of months ago during her . She was placed on Trileptal 300 mg bid. She admits to not having taken them for the past couple of days because "she forgot." Per EMS, she arrived to the ER via ALS status post 2 minutes after a witnessed seizure at the methadone clinic after receiving her regular medications. She was post ictal on arrival. The patient states that she had two seizures prior to arrival to the clinic, which she did not tell them. She is currently experiencing a headache, but denies any other abnormal symptoms. She denies any recent illicit drug use. Source of History: patient Onset: RAILWAY EQUIPMENT OPERATOR Position: other (global) Symptom Intensity: 3 episodes Quality: other (Seizure) Timing: resolved Associated Symptoms: + headache Note: She denies any other abnormal symptoms. Review of Systems See HPI for pertinent positives & negatives. A total of 10 systems reviewed and were otherwise negative. Past Medical & Surgical Medical Problems: (1) Altered mental status (2) Altered mental status (3) Anxiety (4) GERD (gastroesophageal reflux disease) (5) History of narcotic addiction (6) History of seizure (7) Hypotension (8) IUGR (intrauterine growth restriction) (9) Tobacco use Surgical Problems: (1) Patient desires vaginal after section () (2) Previous section Family History Patient reports no known family medical history. Social History Smoking Status: Current Every Day Smoker Alcohol Use: occasionally Drug Use: heroin Marital Status: single, in relationship Housing Status: lives with family Occupation Status: employed Current/Historical Medications Scheduled Methadone Hcl (Methadone Hcl Intensol), 75 MG PO DAILY Mirtazapine (Remeron), 30 MG PO HS Oxcarbazepine (Trileptal), 300 MG PO BID Scheduled PRN Famotidine (Pepcid), 20 MG PO DAILY PRN for Indigestion Allergies Coded Allergies: Brompheniramine (Verified Allergy, Mild, RASH, 03/16/17) Phenylpropanolamine (Verified Allergy, Mild, RASH, 03/16/17) Physical Exam Vital Signs Date Time Temp Pulse Resp B/P (MAP) Pulse Ox O2 Delivery O2 Flow Rate FiO2 03/16/17 15:01 74 15 111/63 96 03/16/17 14:30 74 15 111/63 03/16/17 14:00 69 13 91/59 96 03/16/17 13:16 74 17 03/16/17 13:00 132/77 03/16/17 12:46 71 18 98 03/16/17 12:39 114/71 03/16/17 12:34 67 03/16/17 11:46 75 15 91 03/16/17 11:32 93 Room Air 03/16/17 11:30 118/78 03/16/17 11:23 37.2 109 18 128/82 93 Room Air 03/16/17 11:19 128/82 Physical Exam GENERAL: Patient is a healthy-appearing well-nourished female, falls asleep on exam. HEAD: Normocephalic atraumatic EYES: Ocular movements intact pupils equal and react to light OROPHARYNX mucous membranes are moist no exudates present no erythema or edema present NECK: Supple no nuchal rigidity CHEST: Good equal expansion LUNGS: Clear and equal to auscultation CARDIAC: Normal S1 and S2 ABDOMEN: Soft nontender no guarding BACK: No CVA tenderness EXTREMITIES: No pain upon palpation normal muscle strength in all groups no clubbing cyanosis or edema NEURO: Patient is following commands and answering questions appropriately. Alert and oriented x3 Cranial Nerves 2-12 grossly intact Medical Decision & Procedures ER Provider Diagnostic Interpretation: Radiology results as stated below per my review and radiologist interpretation: CT HEAD WITHOUT CONTRAST (CT) CLINICAL HISTORY: Seizure COMPARISON STUDY: 12/10/2016 TECHNIQUE: Axial CT of the brain is performed from the vertex to the skull base. IV contrast was not administered for this examination. A dose lowering technique was utilized adhering to the principles of ALARA. CT DOSE: 537.48 mGy.cm FINDINGS: No intra or extra-axial mass lesions are visualized. There is no CT evidence of acute cortical infarction. There is no evidence of midline shift. There is no acute hemorrhage. No calvarial fractures are visualized. There is mild disconjugate ocular gaze There is no evidence of pathologic ventricular dilatation. There is no evidence of acute sinusitis IMPRESSION: No acute intracranial findings Electronically signed by: Eben Higuera M.D. 03/16/2017 12:23 PM Dictated Date/Time: 03/16/2017 12:22 PM Laboratory Results 03/16/17 13:22 Red Blood Count 4.12, Mean Corpuscular Volume 92.0, Mean Corpuscular Hemoglobin 30.8, Mean Corpuscular Hemoglobin Concent 33.5, Mean Platelet Volume 8.8, Neutrophils (%) (Auto) 78.0, Lymphocytes (%) (Auto) 16.1, Monocytes (%) (Auto) 5.0, Eosinophils (%) (Auto) 0.3, Basophils (%) (Auto) 0.3, Neutrophils # (Auto) 4.68, Lymphocytes # (Auto) 0.97, Monocytes # (Auto) 0.30, Eosinophils # (Auto) 0.02, Basophils # (Auto) 0.02 03/16/17 13:22 03/16/17 14:30 Test 03/16/17 12:00 03/16/17 13:22 03/16/17 13:31 03/16/17 14:30 Urine Color YELLOW Urine Appearance CLOUDY (CLEAR) Urine pH 5.0 (4.5-7.5) Urine Specific [place] 1.022 (1.000-1.030) Urine Protein NEG (NEG) Urine Glucose (UA) NEG (NEG) Urine Ketones NEG (NEG) Urine Occult Blood 1+ (NEG) Urine Nitrite NEG (NEG) Urine Bilirubin NEG (NEG) Urine Urobilinogen NEG (NEG) Urine Leukocyte Esterase LARGE (NEG) Urine WBC (Auto) >30 /hpf (0-5) Urine RBC (Auto) 0-4 /hpf (0-4) Urine Hyaline Casts (Auto) 5-10 /lpf (0-5) Urine Epithelial Cells (Auto) >30 /lpf (0-5) Urine Bacteria (Auto) NEG (NEG) White Blood Count 6.01 K/uL (4.8-10.8) Red Blood Count 4.12 M/uL (4.2-5.4) Hemoglobin 12.7 g/dL (12.0-16.0) Hematocrit 37.9 % (37-47) Mean Corpuscular Volume 92.0 fL (80-100) Mean Corpuscular Hemoglobin 30.8 pg (25-34) Mean Corpuscular Hemoglobin Concent 33.5 g/dl (32-36) Platelet Count 390 K/uL (130-400) Mean Platelet Volume 8.8 fL (7.4-10.4) Neutrophils (%) (Auto) 78.0 % Lymphocytes (%) (Auto) 16.1 % Monocytes (%) (Auto) 5.0 % Eosinophils (%) (Auto) 0.3 % Basophils (%) (Auto) 0.3 % Neutrophils # (Auto) 4.68 K/uL (1.4-6.5) Lymphocytes # (Auto) 0.97 K/uL (1.2-3.4) Monocytes # (Auto) 0.30 K/uL (0.11-0.59) Eosinophils # (Auto) 0.02 K/uL (0-0.5) Basophils # (Auto) 0.02 K/uL (0-0.2) RDW Standard Deviation 49.5 fL (36.4-46.3) RDW Coefficient of Variation 14.7 % (11.5-14.5) Immature Granulocyte % (Auto) 0.3 % Immature Granulocyte # (Auto) 0.02 K/uL (0.00-0.02) Prothrombin Time 10.6 SECONDS (9.0-12.0) Prothromb Time International Ratio 1.0 (0.9-1.1) Activated Partial Thromboplast Time 27.0 SECONDS (21.0-31.0) Partial Thromboplastin Ratio 1.0 Anion Gap 10.0 mmol/L (3-11) Est Creatinine Clear Calc Drug Dose 70.8 ml/min Estimated GFR () 96.1 Estimated GFR (Non- 82.9 BUN/Creatinine Ratio 19.3 (10-20) Calcium Level 9.0 mg/dl (8.5-10.1) Phosphorus Level 3.0 mg/dl (2.5-4.9) Thyroid Stimulating Hormone (TSH) 0.617 uIu/ml (0.300-4.500) Bedside Glucose 78 mg/dl (70-90) Magnesium Level 2.5 mg/dl (1.8-2.4) Chemistry Specimen Hemolysis Labs reviewed by ED physician. Medications Administered Medications (Trade) Dose Ordered Sig/Zayra Route Start Time Stop Time Status Last Admin Dose Admin Oxcarbazepine (Trileptal Tab) 300 mg NOW STAT PO 03/16/17 11:38 03/16/17 11:40 DC 03/16/17 11:59 300 MG Ciprofloxacin (Cipro Tab) 500 mg NOW STAT PO 03/16/17 13:11 03/16/17 13:12 DC 03/16/17 13:47 500 MG Acetaminophen (Tylenol Tab) 1,000 mg STK-MED ONCE PO 03/16/17 13:53 03/16/17 13:54 DC 03/16/17 13:56 1,000 MG ED Course 1129: Past medical records reviewed. The patient was evaluated in room C9. A complete history and physical examination was performed. 1138: Ordered Trileptal Tab 300 mg PO 1311: Ordered Cipro Tab 500 mg PO 1353: Ordered Tylenol Tab 1000 mg PO 1440: Upon reexamination the patient is resting. I discussed results and treatment plan with the patient. She verbalizes agreement and understanding. The patient is ready for discharge. Medical Decision Differential diagnosis: Etiologies such as infection, hypoglycemia, electrolyte abnormalities, cardiac sources, intracerebral event, trauma, toxicologic, neurologic, as well as others were entertained. This is a 31-year-old female who presents emergency department complaining of multiple seizures today. The patient is on antiseizure medication and I will note has not taken it. Based on this the patient was given her seizure medication. She has no evidence of meningitis encephalitis on examination and I feel that the patient is well enough to be discharged home for follow-up with her primary care physician. She was observed for a total of 3 hours in the emergency department given Tylenol for her headache. Patient was in agreement with the treatment plan. Medication Reconcilliation Current Medication List: was personally reviewed by me Blood Pressure Screening Patient's blood pressure: Normal blood pressure Blood pressure disposition: Did not require urgent referral Impression Primary Impression: Seizure Scribe Attestation The scribe's documentation has been prepared under my direction and personally reviewed by me in its entirety. I confirm that the note above accurately reflects all work, treatment, procedures, and medical decision making performed by me. Departure Information Dispostion Home / Self-Care Referrals Steve Bray M.D. (MEDICINE) Jose Luciano M.D. Forms HOME CARE DOCUMENTATION FORM, IMPORTANT VISIT INFORMATION, School Instructions, Work Instructions Patient Instructions ED Seizure Recurrent, My [facility] Additional Instructions Be sure to take medicine as previously prescribed Follow up with DR Bray's office You have been examined and treated today on an emergency basis only. This is not a substitute for, or an effort to provide, complete comprehensive medical care. It is impossible to recognize and treat all injuries or illnesses in a single emergency department visit. It is therefore important that you follow up closely with Dr Luciano. Call as soon as possible for an appointment. Thank you for your time and consideration. I look forward to speaking with you again soon. Please don't hesitate to call us if you have any questions.
--- NOTE | 2017-03-16 12:25 | DIAGNOSTIC IMAGING REPORT ---
CT HEAD WITHOUT CONTRAST (CT) CLINICAL HISTORY: Seizure COMPARISON STUDY: 12/10/2016 TECHNIQUE: Axial CT of the brain is performed from the vertex to the skull base. IV contrast was not administered for this examination. A dose lowering technique was utilized adhering to the principles of ALARA. CT DOSE: 537.48 mGy.cm FINDINGS: No intra or extra-axial mass lesions are visualized. There is no CT evidence of acute cortical infarction. There is no evidence of midline shift. There is no acute hemorrhage. No calvarial fractures are visualized. There is mild disconjugate ocular gaze There is no evidence of pathologic ventricular dilatation. There is no evidence of acute sinusitis IMPRESSION: No acute intracranial findings Electronically signed by: Eben Higuera M.D. 03/16/2017 12:23 PM Dictated Date/Time: 03/16/2017 12:22 PM
[2017-03-16] MEDS ORDERED: CIPROFLOXACIN 500 MG TAB PO STA (13:11)
[2017-03-16 13:33] LABS: BASO % 0.3 %; BASO ABS # 0.02 K/uL (0-0.2); EOS % 0.3 %; EOS ABS # 0.02 K/uL (0-0.5); HEMATOCRIT 37.9 % (37-47); HEMOGLOBIN 12.7 g/dL (12.0-16.0); IG# 0.02 K/uL (0.00-0.02); LYMPH % 16.1 %; LYMPH ABS # 0.97 K/uL (1.2-3.4); MEAN CORPUSCULAR HEMOGLOBIN 30.8 pg (25-34); MEAN CORPUSCULAR HGB CONC 33.5 g/dl (32-36); MEAN PLATELET VOLUME 8.8 fL (7.4-10.4); NEUT ABS # 4.68 K/uL (1.4-6.5); PLATELET COUNT 390 K/uL (130-400); RED CELL DISTRIBUTION WIDTH CV 14.7 % (11.5-14.5); RED CELL DISTRIBUTION WIDTH SD 49.5 fL (36.4-46.3); WHITE BLOOD COUNT 6.01 K/uL (4.8-10.8)
[2017-03-16] MEDS ORDERED: ACETAMINOPHEN 500 MG TAB PO ONE (13:53)
[2017-03-16 14:07] LABS: CREATININE 0.91 mg/dl (0.60-1.20)
[2017-03-16 14:59] LABS: POTASSIUM 4.9 mmol/L (3.5-5.1)
[2017-03-16 15:01] VITALS: BP 111/63; PULSE 74; O2SAT 96
== END 2017-03-16 15:02 | disposition home or self-care (01) ==
LOC: EDBD 11:16 → C.EDC 11:17
DX: G40.909 Epilepsy, unspecified, not intractable, without status epilepticus (principal); I95.9 Hypotension, unspecified; F17.200 Nicotine dependence, unspecified, uncomplicated; F11.90 Opioid use, unspecified, uncomplicated; Z79.891 Long term (current) use of opiate analgesic

== ENCOUNTER → 2017-04-14 | Outpatient (CLI) | payer OTHER ==
[~2017-04-14] MED LIST changes: +METH10CO PO; -METH10SO PO; +MIRT30TA3 PO; -PRENTAB26 PO
== END | disposition home or self-care (01) ==
LOC: C.PAPS 09:30
PROVIDERS: ATTEND Obstetrics & Gynecology
DX: Z39.2 Encounter for routine postpartum follow-up (principal)

== ENCOUNTER 2017-06-05 15:34 | Inpatient (IN) | payer OTHER ==
[~2017-06-05] VITALS: Ht 157.5 cm; Wt 55.0 kg
[2017-06-05] MEDS ORDERED: ONDANSETRON INJ 2 MG/ML 2 ML VIAL IV STA (15:51)
[2017-06-05] MEDS ORDERED: LORAZEPAM 2 MG/ML 1 ML VIAL IV STA (15:51)
[2017-06-05] MEDS ORDERED: LEVETIRACETAM IV 500 MG in DEXTROSE 5% 100ML 100 ML IV STA (15:51)
[2017-06-05] MEDS ORDERED: SODIUM CHLORIDE 0.9% 1000ML 500 ML IV STA (15:51)
--- NOTE | 2017-06-05 15:59 | EMERGENCY ROOM VISIT NOTE ---
History Report prepared by Louieiblonnie: Talia Serrano Under the Supervision of: Dr. Kirt Shaver M.D. First contact with patient: 15:45 Chief Complaint: SEIZURE Stated Complaint: SEIZURE History of Present Illness The patient is a 32 year old female who presents to the Emergency Room with complaints of a seizure that occurred prior to arrival. She was brought to the ED via EMS. She has a history of seizures, following with Anahi Romero PA-C , from [facility], and takes daily Trileptal. She is also currently on Methadone for a history of narcotic abuse. Her fiance states she has been taking the Methadone as prescribed and has not missed any doses. He told EMS she had 3 seizures earlier this afternoon, so he called her Neurologist, who recommended she come to the ED. He reports she was confused after the episode, but did not hit her head or experience any head trauma. According to him, the 1st seizure only lasted for a few minutes and included "staring", the 2nd one lasted longer and she "seemed out of it", and the 3rd seizure lasted for approximately 10 minutes and was "really violent, with shaking". The patient's BSG was 101 when checked by EMS. The fiance denies any recent illnesses. The patient has not vomited today, but did vomit last night "while in her sleep". She currently complains of a headache here in the ED. The patient's fiance states there is no chance of . Source of History: patient Onset: [employer] Position: other (global) Timing: resolved Associated Symptoms: + headache, + vomiting Review of Systems See HPI for pertinent positives & negatives. A total of 10 systems reviewed and were otherwise negative. Past Medical & Surgical Medical Problems: (1) Altered mental status (2) Altered mental status (3) Anxiety (4) GERD (gastroesophageal reflux disease) (5) History of narcotic addiction (6) History of seizure (7) Hypotension (8) IUGR (intrauterine growth restriction) (9) Tobacco use Surgical Problems: (1) Patient desires vaginal after section () (2) Previous section Family History Patient reports no known family medical history. Social History Smoking Status: Current Every Day Smoker Alcohol Use: occasionally Drug Use: heroin Marital Status: single, in relationship Housing Status: lives with family Occupation Status: employed Current/Historical Medications Scheduled Gabapentin (Gabapentin), 600 MG PO UD Methadone Hcl (Methadone Hcl Intensol), 90 MG PO DAILY Mirtazapine (Remeron), 30 MG PO HS Oxcarbazepine (Trileptal), 300 MG PO BID Scheduled PRN Famotidine (Pepcid), 20 MG PO DAILY PRN for Indigestion Allergies Coded Allergies: Brompheniramine (Verified Allergy, Mild, RASH, 06/05/17) Phenylpropanolamine (Verified Allergy, Mild, RASH, 06/05/17) Physical Exam Vital Signs Date Time Temp Pulse Resp B/P (MAP) Pulse Ox O2 Delivery O2 Flow Rate FiO2 06/05/17 17:04 102 20 135/78 95 Room Air 06/05/17 16:21 103 06/05/17 15:35 94 Room Air 06/05/17 15:35 37.3 100 24 126/83 94 Room Air Physical Exam GENERAL: Patient is in no acute distress. HEENT: No acute trauma, normocephalic atraumatic, mucous membranes moist, no nasal congestion, no scleral icterus. Pupils are large but equal and reactive. NECK: No stridor, no adenopathy, no meningismus, trachea is midline. LUNGS: Clear to auscultation bilaterally, no wheeze, no rhonchi, breath sounds equal. HEART: Without murmurs gallops or rubs, regular rate and rhythm. ABDOMEN: Soft, nontender, bowel sounds positive, no hernias, no peritonitis. EXTREMITIES: No cyanosis or edema, full range of motion of all the joints without pain or difficulty, no signs for acute trauma. NEUROLOGIC: Patient is sleepy but awakens to voice, answers questions appropriately, no focal motor deficits, no speech slur. SKIN: No rash, no jaundice, no diaphoresis. Medical Decision & Procedures ER Provider Diagnostic Interpretation: Radiology results as stated below per my review and radiologist interpretation: CT HEAD WITHOUT CONTRAST (CT) CLINICAL HISTORY: headache, seizures COMPARISON STUDY: 03/16/2017 TECHNIQUE: Axial CT of the brain is performed from the vertex to the skull base. IV contrast was not administered for this examination. A dose lowering technique was utilized adhering to the principles of ALARA. CT DOSE: 537.48 mGy.cm FINDINGS: No intra or extra-axial mass lesions are visualized. There is no CT evidence of acute cortical infarction. There is no evidence of midline shift. There is no acute hemorrhage. No calvarial fractures are visualized. There is no evidence of pathologic ventricular dilatation. There is no evidence of acute sinusitis IMPRESSION: Normal noncontrast head CT. Electronically signed by: Eben Higuera M.D. 06/05/2017 5:16 PM Laboratory Results 06/05/17 16:37 Red Blood Count 4.32, Mean Corpuscular Volume 88.0, Mean Corpuscular Hemoglobin 30.3, Mean Corpuscular Hemoglobin Concent 34.5, Mean Platelet Volume 8.8, Neutrophils (%) (Auto) 74.7, Lymphocytes (%) (Auto) 14.1, Monocytes (%) (Auto) 6.7, Eosinophils (%) (Auto) 4.2, Basophils (%) (Auto) 0.2, Neutrophils # (Auto) 7.64, Lymphocytes # (Auto) 1.44, Monocytes # (Auto) 0.68, Eosinophils # (Auto) 0.43, Basophils # (Auto) 0.02 06/05/17 16:37 Test 06/05/17 15:45 06/05/17 16:37 06/05/17 17:30 Urine Color YELLOW Urine Appearance CLEAR (CLEAR) Urine pH 6.0 (4.5-7.5) Urine Specific [place] 1.023 (1.000-1.030) Urine Protein NEG (NEG) Urine Glucose (UA) NEG (NEG) Urine Ketones NEG (NEG) Urine Occult Blood NEG (NEG) Urine Nitrite NEG (NEG) Urine Bilirubin NEG (NEG) Urine Urobilinogen NEG (NEG) Urine Leukocyte Esterase NEG (NEG) Urine Opiates Screen NEG (NEG) Urine Methadone, Qualitative POS (NEG) Urine Barbiturates NEG (NEG) Urine Phencyclidine (PCP) Level NEG (NEG) Ur Amphetamine/Methamphetamine POS (NEG) MDMA (Ecstasy) Screen NEG (NEG) Urine Benzodiazepines Screen NEG (NEG) Urine Cocaine Metabolite NEG (NEG) Urine Marijuana (THC) NEG (NEG) White Blood Count 10.22 K/uL (4.8-10.8) Red Blood Count 4.32 M/uL (4.2-5.4) Hemoglobin 13.1 g/dL (12.0-16.0) Hematocrit 38.0 % (37-47) Mean Corpuscular Volume 88.0 fL (80-100) Mean Corpuscular Hemoglobin 30.3 pg (25-34) Mean Corpuscular Hemoglobin Concent 34.5 g/dl (32-36) Platelet Count 298 K/uL (130-400) Mean Platelet Volume 8.8 fL (7.4-10.4) Neutrophils (%) (Auto) 74.7 % Lymphocytes (%) (Auto) 14.1 % Monocytes (%) (Auto) 6.7 % Eosinophils (%) (Auto) 4.2 % Basophils (%) (Auto) 0.2 % Neutrophils # (Auto) 7.64 K/uL (1.4-6.5) Lymphocytes # (Auto) 1.44 K/uL (1.2-3.4) Monocytes # (Auto) 0.68 K/uL (0.11-0.59) Eosinophils # (Auto) 0.43 K/uL (0-0.5) Basophils # (Auto) 0.02 K/uL (0-0.2) RDW Standard Deviation 51.8 fL (36.4-46.3) RDW Coefficient of Variation 16.0 % (11.5-14.5) Immature Granulocyte % (Auto) 0.1 % Immature Granulocyte # (Auto) 0.01 K/uL (0.00-0.02) Anion Gap 6.0 mmol/L (3-11) Estimated GFR () 83.1 Estimated GFR (Non- 71.7 BUN/Creatinine Ratio 9.6 (10-20) Calcium Level 8.7 mg/dl (8.5-10.1) Total Bilirubin 0.4 mg/dl (0.2-1) Alanine Aminotransferase (ALT/SGPT) 24 U/L (12-78) Alkaline Phosphatase 69 U/L (45-117) Total Protein 7.1 gm/dl (6.4-8.2) Albumin 3.9 gm/dl (3.4-5.0) Globulin 3.2 gm/dl (2.5-4.0) Albumin/Globulin Ratio 1.2 (0.9-2) Thyroid Stimulating Hormone (TSH) 2.560 uIu/ml (0.300-4.500) Laboratory results reviewed by me. Medications Administered Medications (Trade) Dose Ordered Sig/Zayra Route Start Time Stop Time Status Last Admin Dose Admin Sodium Chloride 500 ml @ 999 mls/hr Q31M STAT IV 06/05/17 15:51 06/05/17 16:21 DC 06/05/17 16:08 999 MLS/HR Ondansetron HCl (Zofran Inj) 4 mg NOW STAT IV 06/05/17 15:51 06/05/17 15:56 DC 06/05/17 16:08 4 MG Lorazepam (Ativan Inj) 1 mg NOW STAT IV 06/05/17 15:51 06/05/17 15:56 DC 06/05/17 16:08 1 MG Levetiracetam 500 mg/Dextrose 105 ml @ 420 mls/hr NOW STAT IV 06/05/17 15:51 06/05/17 16:05 DC 06/05/17 16:45 420 MLS/HR ECG Per My Interpretation Indication: weakness (seizure) Rate (beats per minute): 99 Rhythm: normal sinus Findings: no ectopy, other (No ST elevation, no PVC's) ED Course 1549: The patient was evaluated in room B4. A complete history and physical exam was performed. 1551: Levetiracetam 500 mg/Dextrose 105 ml @ 420 mls/hr IV, Ativan 1 mg IV, Zofran 4 mg IV, NSS 500 ml @ 999 mls/hr IV. 1725: I discussed the patients case with Dr. Lane, [facility]. She recommends the patient continue the Keppra and have the patient further evaluated by the hospital medicine team. 1729: I discussed the patients case with Dr. Griffith, [facility]. The patient will be further evaluated. Medical Decision The differential diagnoses considered include seizure, missed medication dose, intracranial bleeding, dehydration, electrolyte imbalance, infection and elicit medication use. There is no leukocytosis or concerning anemia. No significant electrolyte abnormality, kidney failure or hepatitis. The patient appears to be in a euthyroid state. Urinalysis does not show infection. Brain CT shows no acute bleed or mass-effect. On exam, the patient was somnolent but arousable. As per the paramedics and the patient's family, there was a post ictal period after her last seizure like event. Patient received IV saline, she was received IV Ativan, IV Keppra and IV Zofran , she is doing well, she is much more awake and alert. No return of seizure activity. I spoke to the neurologist on-call, hospitalization was advised. I did speak with the patient and case management. The on-call hospitalist was consulted. Patient is not safe for discharge with 3 seizures in just one day, she may require new or different medication for seizure prevention. Medication Reconcilliation Current Medication List: was personally reviewed by me Blood Pressure Screening Patient's blood pressure: Elevated blood pressure Blood pressure disposition: Elevated BP felt to be situational Consults Time Called: 172 Consulting Physician: [facility] Returned Call: [phone] I discussed the patients case with [facility]. She recommends the patient continue the Keppra and have the patient further evaluated by the hospital medicine team. Additional Consults: Time Called: 172 Consulted Physician: [facility] Hospitalist Returned Call: 172 Additional Comments: I discussed the patients case with [facility]. The patient will be further evaluated. Impression Primary Impression: Seizure Scribe Attestation The scribe's documentation has been prepared under my direction and personally reviewed by me in its entirety. I confirm that the note above accurately reflects all work, treatment, procedures, and medical decision making performed by me. Departure Information Dispostion Being Evaluated By Hospitalist Referrals No Doctor, Assigned (PCP) Patient Instructions My [facility]
[2017-06-05] MEDS ORDERED: NRN600 PO (16:06)
[2017-06-05 16:48] LABS: BASO % 0.2 %; BASO ABS # 0.02 K/uL (0-0.2); EOS % 4.2 %; EOS ABS # 0.43 K/uL (0-0.5); HEMOGLOBIN 13.1 g/dL (12.0-16.0); IG# 0.01 K/uL (0.00-0.02); LYMPH % 14.1 %; LYMPH ABS # 1.44 K/uL (1.2-3.4); MEAN CORPUSCULAR HEMOGLOBIN 30.3 pg (25-34); MEAN CORPUSCULAR HGB CONC 34.5 g/dl (32-36); MEAN PLATELET VOLUME 8.8 fL (7.4-10.4); MONO % 6.7 %; MONO ABS # 0.68 K/uL (0.11-0.59); NEUT % 74.7 %; NEUT ABS # 7.64 K/uL (1.4-6.5); PLATELET COUNT 298 K/uL (130-400); RED CELL DISTRIBUTION WIDTH SD 51.8 fL (36.4-46.3); WHITE BLOOD COUNT 10.22 K/uL (4.8-10.8)
--- NOTE | 2017-06-05 17:18 | DIAGNOSTIC IMAGING REPORT ---
CT HEAD WITHOUT CONTRAST (CT) CLINICAL HISTORY: headache, seizures COMPARISON STUDY: 03/16/2017 TECHNIQUE: Axial CT of the brain is performed from the vertex to the skull base. IV contrast was not administered for this examination. A dose lowering technique was utilized adhering to the principles of ALARA. CT DOSE: 537.48 mGy.cm FINDINGS: No intra or extra-axial mass lesions are visualized. There is no CT evidence of acute cortical infarction. There is no evidence of midline shift. There is no acute hemorrhage. No calvarial fractures are visualized. There is no evidence of pathologic ventricular dilatation. There is no evidence of acute sinusitis IMPRESSION: Normal noncontrast head CT. Electronically signed by: Eben Higuera M.D. 06/05/2017 5:16 PM Dictated Date/Time: 06/05/2017 5:15 PM
[2017-06-05 17:21] LABS: ALBUMIN 3.9 gm/dl (3.4-5.0); ALT/SGPT 24 U/L (12-78); BLOOD UREA NITROGEN 10 mg/dl (7-18); CALCIUM 8.7 mg/dl (8.5-10.1); CARBON DIOXIDE 26 mmol/L (21-32); CREATININE 1.02 mg/dl (0.60-1.20); GLUCOSE 89 mg/dl (70-99); SODIUM 137 mmol/L (136-145)
[2017-06-05 17:25] LABS: ALKALINE PHOSPHATASE 69 U/L (45-117); TOTAL PROTEIN 7.1 gm/dl (6.4-8.2)
[2017-06-05 18:02] VITALS: O2SAT 95; Ht 157.5 cm; Wt 55.0 kg
[2017-06-05 18:07] LABS: POTASSIUM 3.7 mmol/L (3.5-5.1)
[2017-06-05] MEDS ORDERED: ACETAMINOPHEN 325 MG TAB PO PRN (18:30)
[2017-06-05] MEDS ORDERED: NSS + 20MEQ KCL 1000ML 1,000 ML IV SCH (18:30)
[2017-06-05] MEDS ORDERED: LORAZEPAM 2 MG/ML 1 ML VIAL IV PRN (18:30)
--- NOTE | 2017-06-05 18:53 | History and Physical ---
History & Physical Date & Time of Service: Jun 05, 2017 at 18:34 Chief Complaint: Seizure Primary Care Physician: Jose Luciano M.D. History of Present Illness Source: patient, family 32-year-old female with a history of seizures, narcotic abuse on methadone, smoking, anxiety depression, bipolar disorder, Presenting with breakthrough seizures today. Follows with Dr. Puga for primary care, Dr. Crow for neurology, methadone clinic. Patient is apparently doing well until around 1 PM today while at home patient was noted to have fallen on her buttocks, was found to be staring and was having twitching on her upper extremities. This lasted for about 5 minutes and subsided. After about 45 minutes the patient was noted to be having blank stares around 2 minutes. Later on, playing on the couch, patient was noted to have an episode of generalized tonic-clonic seizure, with stiffening of all extremities, jerking movements. No vomiting, incontinence noted. This lasted for several minutes until ambulance arrived. She was then brought to the ER, and patient was noted to be somnolent. After a few minutes, the patient was noted to be awake alert and oriented again. CT head negative for acute process Care physician Dr. freitas, called Dr. Crow patient's neurologist who advised Keppra IV 500 mg twice daily. On my exam, patient was sitting up in bed, alert, oriented 3 answers all questions appropriately. She reports some bilateral lower extremity pain, mild. She also reports a few week history of bilateral hand joints, elbows, knees and ankle stiffness upon waking up in the morning as well as swelling lasting the whole day. Her primary care doctor, Dr. Puga, was planning to perform initial tests to rule out RA. Otherwise patient denies any other symptoms. She denies alcohol abuse, admits to smoking cigarettes. Also uses methadone 90 mg solution daily and follows at the hospital clinic. Past Medical/Surgical History Medical Problems: (1) Altered mental status (2) Altered mental status (3) Anxiety (4) Change in mental status (5) GERD (gastroesophageal reflux disease) (6) History of narcotic addiction (7) History of seizure (8) Hypotension (9) Intrauterine (10) IUGR (intrauterine growth restriction) (11) Medication reaction (12) (13) Seizure (14) Tobacco use Surgical Problems: (1) Patient desires vaginal after section () (2) Previous section Family History Patient reports no known family medical history. Social History Smoking Status: Current Every Day Smoker Alcohol Use: none Drug Use: heroin Marital Status: single, in relationship Housing status: lives with family Occupational Status: employed Immunizations History of Influenza Vaccine: Unknown History of Tetanus Vaccine?: Unknown History of Pneumococcal: Unknown History of Hepatitis B Vaccine: Unknown Allergies Coded Allergies: Brompheniramine (Verified Allergy, Mild, RASH, 06/05/17) Phenylpropanolamine (Verified Allergy, Mild, RASH, 06/05/17) Home Medications Scheduled Gabapentin (Gabapentin), 600 MG PO UD Methadone Hcl (Methadone Hcl Intensol), 90 MG PO DAILY Mirtazapine (Remeron), 30 MG PO HS Oxcarbazepine (Trileptal), 300 MG PO BID Scheduled PRN Famotidine (Pepcid), 20 MG PO DAILY PRN for Indigestion Review of Systems Constitutional- no fever; no weight loss Eyes- no acute visual changes ENT- no sinus drainage; no pharyngitis Pulmonary- no cough, no wheezing, no shortness of breath Cardiac- no chest pain, no palpitations, no orthopnea, no dependent edema GI- no nausea, no vomiting, no diarrhea, no melena, no hematochezia - no dysuria, no hematuria Musculoskeletal-positive as noted above Derm- no rashes, no new skin lesions, no changing skin lesions Hematologic- no unusual bruising, no unusual bleeding Lymphatics- no adenopathy Endocrine- no polyuria or polydipsia; no heat or cold intolerance Neuro- no headaches, no focal neurologic symptoms Psych- no anxiety, no depression Physical Exam Vital Signs Date Time Temp Pulse Resp B/P (MAP) Pulse Ox O2 Delivery O2 Flow Rate FiO2 06/05/17 18:02 95 Room Air 06/05/17 17:04 102 20 135/78 95 Room Air 06/05/17 16:21 103 06/05/17 15:35 94 Room Air 06/05/17 15:35 37.3 100 24 126/83 94 Room Air General Appearance: WD/WN, no apparent distress Head: normocephalic, atraumatic Eyes: normal inspection, PERRL, EOMI, sclerae normal ENT: normal ENT inspection, hearing grossly normal, pharynx normal Neck: supple, no adenopathy, thyroid normal, no JVD, trachea midline Respiratory/Chest: chest non-tender, lungs clear, normal breath sounds Cardiovascular: regular rate, rhythm, no edema, no JVD, no murmur Abdomen/GI: normal bowel sounds, non tender, soft Back: normal inspection, no CVA tenderness Extremities/Musculoskelatal: normal inspection, no calf tenderness, normal capillary refill, no pedal edema, normal range of motion, non-tender, + pertinent finding (Positive for bilateral hand joints having mild warmth mild edema mild tenderness, seen with bilateral elbows and knees) Neurologic/Psych: shagger II-XII nml as tested, no motor/sensory deficits, alert, normal mood/affect, normal reflexes, oriented x 3 Skin: normal color, warm/dry, no rash Lymphatic: no adenopathy Diagnostics Laboratory Results Results Past 24 Hours Test 06/05/17 15:45 06/05/17 16:37 06/05/17 17:30 06/05/17 18:13 Range/Units Urine Color YELLOW Urine Appearance CLEAR CLEAR Urine pH 6.0 4.5-7.5 Urine Specific [place] 1.023 1.000-1.030 Urine Protein NEG NEG Urine Glucose (UA) NEG NEG Urine Ketones NEG NEG Urine Occult Blood NEG NEG Urine Nitrite NEG NEG Urine Bilirubin NEG NEG Urine Urobilinogen NEG NEG Urine Leukocyte Esterase NEG NEG Urine Opiates Screen NEG NEG Urine Methadone, Qualitative POS NEG Urine Barbiturates NEG NEG Urine Phencyclidine (PCP) Level NEG NEG Ur Amphetamine/Methamphetamine POS NEG MDMA (Ecstasy) Screen NEG NEG Urine Benzodiazepines Screen NEG NEG Urine Cocaine Metabolite NEG NEG Urine Marijuana (THC) NEG NEG White Blood Count 10.22 4.8-10.8 K/uL Red Blood Count 4.32 4.2-5.4 M/uL Hemoglobin 13.1 12.0-16.0 g/dL Hematocrit 38.0 37-47 % Mean Corpuscular Volume 88.0 80-100 fL Mean Corpuscular Hemoglobin 30.3 25-34 pg Mean Corpuscular Hemoglobin Concent 34.5 32-36 g/dl Platelet Count 298 130-400 K/uL Mean Platelet Volume 8.8 7.4-10.4 fL Neutrophils (%) (Auto) 74.7 % Lymphocytes (%) (Auto) 14.1 % Monocytes (%) (Auto) 6.7 % Eosinophils (%) (Auto) 4.2 % Basophils (%) (Auto) 0.2 % Neutrophils # (Auto) 7.64 1.4-6.5 K/uL Lymphocytes # (Auto) 1.44 1.2-3.4 K/uL Monocytes # (Auto) 0.68 0.11-0.59 K/uL Eosinophils # (Auto) 0.43 0-0.5 K/uL Basophils # (Auto) 0.02 0-0.2 K/uL RDW Standard Deviation 51.8 36.4-46.3 fL RDW Coefficient of Variation 16.0 11.5-14.5 % Immature Granulocyte % (Auto) 0.1 % Immature Granulocyte # (Auto) 0.01 0.00-0.02 K/uL Sodium Level 137 136-145 mmol/L Potassium Level 3.7 3.5-5.1 mmol/L Chloride Level 105 98-107 mmol/L Carbon Dioxide Level 26 21-32 mmol/L Anion Gap 6.0 3-11 mmol/L Blood Urea Nitrogen 10 7-18 mg/dl Creatinine 1.02 0.60-1.20 mg/dl Estimated GFR () 83.1 Estimated GFR (Non- 71.7 BUN/Creatinine Ratio 9.6 10-20 Random Glucose 89 70-99 mg/dl Calcium Level 8.7 8.5-10.1 mg/dl Magnesium Level 2.2 1.8-2.4 mg/dl Total Bilirubin 0.4 0.2-1 mg/dl Aspartate Amino Transf (AST/SGOT) 19 15-37 U/L Alanine Aminotransferase (ALT/SGPT) 24 12-78 U/L Alkaline Phosphatase 69 45-117 U/L Total Protein 7.1 6.4-8.2 gm/dl Albumin 3.9 3.4-5.0 gm/dl Globulin 3.2 2.5-4.0 gm/dl Albumin/Globulin Ratio 1.2 0.9-2 Thyroid Stimulating Hormone (TSH) 2.560 0.300-4.500 uIu/ml Human Chorionic Gonadotropin, Qual NEG NEG [place] Level 0.6 0.6-1.2 mMOL/L Diagnostic Radiology CT head: No acute process EKG Heart rate 99, sinus rhythm, prolonged QT Impression Assessment and Plan 32-year-old female with a history of seizures, narcotic abuse on methadone, smoking, anxiety depression, bipolar disorder, Presenting with breakthrough seizures today. BREAKTHROUGH SEIZURES Hold Trileptal 600 mg twice daily Transition to Keppra 500 mg IV every 12 Check lithium level, lithium p.o. for now Monitor electrolytes Seizure precautions Neurologist Dr. Crow consulted BILATERAL HAND, ELBOW, SWELLING Rule out RA Check ESR, CRP, rheumatoid factor, CCP, DIANA HISTORY OF NARCOTIC ABUSE ON METHADONE Continue usual methadone 90 mg p.o. daily Follows with methadone clinic SMOKING Smokes 1 pack per day Nicotine patch daily HISTORY OF ANXIETY AND DEPRESSION Mood at baseline Hold lithium p.o., check lithium level Continue Remeron 45 mg daily Gabapentin 600 mg 3 times daily DVT prophylaxis SCDs for now Disposition Usually lives with family at home Anticipate discharge home medically stable and cleared by neurology Advanced Directives Existing Living Will: No Existing Power of Supervisor Cigarette Making Department: No Resuscitation Status VTE Prophylaxis Will order VTE Prophylaxis: Yes
[2017-06-05 19:50] VITALS: BP 100/65; PULSE 92; TEMP 37.2; O2SAT 96
[2017-06-05] MEDS: GABAPENTIN 600 MG TAB PO SCH (21:00)
[2017-06-05] MEDS: MIRTAZAPINE TAB 15 MG TAB PO SCH (21:00)
[2017-06-05] MEDS ORDERED: LITHIUM CARBONATE 300 MG TAB PO SCH (21:00)
[2017-06-05] MEDS: D5NSS + 20MEQ KCL 1,000 ML IV SCH (21:19)
[2017-06-05 23:50] VITALS: BP 96/57; PULSE 86; TEMP 36.7; O2SAT 99
[2017-06-06] VITALS (7 sets, daily range): BP systolic 92–129; BP diastolic 53–70; PULSE 79–120; TEMP 36.1–37.2; O2SAT 96–99
[2017-06-06] MEDS ORDERED: LEVETIRACETAM IV 500 MG in DEXTROSE 5% 100ML 100 ML IV SCH (04:00)
[2017-06-06] MEDS ORDERED: ONDANSETRON INJ 2 MG/ML 2 ML VIAL ONE (06:38)
[2017-06-06 06:43] LABS: BASO % 0.2 %; BASO ABS # 0.01 K/uL (0-0.2); EOS % 0.8 %; EOS ABS # 0.05 K/uL (0-0.5); HEMATOCRIT 34.7 % (37-47); IG# 0.01 K/uL (0.00-0.02); LYMPH ABS # 0.92 K/uL (1.2-3.4); MEAN CORPUSCULAR HEMOGLOBIN 30.1 pg (25-34); MEAN CORPUSCULAR HGB CONC 34.6 g/dl (32-36); MEAN PLATELET VOLUME 8.9 fL (7.4-10.4); MONO % 4.6 %; MONO ABS # 0.28 K/uL (0.11-0.59); NEUT % 79.2 %; NEUT ABS # 4.85 K/uL (1.4-6.5); PLATELET COUNT 293 K/uL (130-400); RED CELL DISTRIBUTION WIDTH CV 15.9 % (11.5-14.5); RED CELL DISTRIBUTION WIDTH SD 51.3 fL (36.4-46.3); WHITE BLOOD COUNT 6.12 K/uL (4.8-10.8)
[2017-06-06] MEDS ORDERED: NURSING VERBAL MED ORDER ONE (06:45)
[2017-06-06] MEDS ORDERED: ONDANSETRON INJ 2 MG/ML 2 ML VIAL IV PRN (07:00)
[2017-06-06 07:17] LABS: ALBUMIN 3.7 gm/dl (3.4-5.0); CALCIUM 8.7 mg/dl (8.5-10.1); CREATININE 0.93 mg/dl (0.60-1.20); POTASSIUM 3.6 mmol/L (3.5-5.1)
[2017-06-06 07:20] LABS: TOTAL PROTEIN 7.1 gm/dl (6.4-8.2)
[2017-06-06] MEDS ORDERED: METHADONE PO SCH (09:00)
[2017-06-06] MEDS: METHADONE ORAL SOLN 2 MG/1ML PO SCH (09:40)
--- NOTE | 2017-06-06 09:40 | DIAGNOSTIC IMAGING REPORT ---
CHEST ONE VIEW PORTABLE CLINICAL HISTORY: r/o aspiration COMPARISON STUDY: Chest radiograph January 04, 2012. FINDINGS: Lung volumes are normal. Patient is mildly rotated. There is no pneumothorax or pleural effusion. There is no consolidation or evidence of pulmonary edema. Cardiomediastinal silhouette is normal. IMPRESSION: No acute cardiopulmonary findings. Electronically signed by: Shan Montes De Oca M.D. 06/06/2017 9:38 AM Dictated Date/Time: 06/06/2017 9:38 AM
[2017-06-06] MEDS: GABAPENTIN 600 MG TAB PO SCH ×3 (09:41→20:52)
[2017-06-06] MEDS: NICOTINE 21 MG/24 HR TDSY TD SCH (09:41)
[2017-06-06] MEDS: D5NSS + 20MEQ KCL 1,000 ML IV SCH (10:06)
--- NOTE | 2017-06-06 14:47 | Neurology Consultation ---
Neurology Consultation Date of Consultation: Jun 06, 2017. Attending Physician: Samir Griffith MD Primary Care Physician: Jose Luciano M.D. Reason for Consultation: seizure disorder History of Present Illness Source: patient Gisell is a 32 year old female with a H seizures, narcotic abuse on methadone, smoking, anxiety depression, bipolar disorder. She presented to the ED with breakthrough seizure She states she has been taking her Trileptal 600 mg BID. She has not had another seizure since her last office visit. she had fallen on her buttock and was found to be staring and was having twitching on her upper extremities. This lasted for about 5 minutes and subsided. The about 45 minutes later she was noted to be having blank stares around 2 minutes. then she was on the couch and was noted to have an episode of generalized tonic- clonic seizure, with stiffening of all extremities, jerking movements. which lasted several minutes until the ambulance arrived. According to nursing she has been out of it until about 10:30 this am. She states she does not remember any of what happened prior to arrival at the ED in fact she thinks the seizures happened in the ED. According to report there was no incontinence or tongue biting, she was not ill or febrile. Denies CP, SOB, abdominal pain, weakness, numbness tingling, N, V. She is no NPO because of some vomiting on arrival. Past Medical/Surgical History Medical Problems: (1) Change in mental status Status: Acute (2) Medication reaction Status: Acute (3) Status: Acute (4) Seizure Status: Acute Social History Smoking Status: Current every day smoker Alcohol Use: none Drug Use: heroin Marital Status: single, in relationship Housing Status: lives with family Occupation Status: employed Allergies Coded Allergies: Brompheniramine (Verified Allergy, Mild, RASH, 06/05/17) Phenylpropanolamine (Verified Allergy, Mild, RASH, 06/05/17) Current Inpatient Medications Current Inpatient Medications Medications (Trade) Dose Ordered Sig/Zayra Route Start Time Stop Time Status Last Admin Dose Admin Levetiracetam 500 mg/Dextrose 105 ml @ 420 mls/hr Q12H IV 06/06/17 04:00 07/06/17 03:59 06/06/17 04:00 420 MLS/HR Lorazepam (Ativan Inj) 1 mg Q1H PRN IV 06/05/17 18:30 07/05/17 18:29 06/06/17 02:48 1 MG Methadone HCl (Methadone HCl) 90 mg QAM PO 06/06/17 09:00 06/20/17 08:59 06/06/17 09:40 90 MG Nicotine (Nicoderm Cq 21MG Patch) 1 patch QAM TD 06/06/17 09:00 07/06/17 08:59 06/06/17 09:41 1 PATCH Miscellaneous (Remove Nicoderm Patch) 1 ea HS N/A 06/05/17 21:00 07/05/17 20:59 Gabapentin (Neurontin Tab) 600 mg TID PO 06/05/17 21:00 07/05/17 20:59 06/06/17 13:37 600 MG Mirtazapine (Remeron Tab) 45 mg HS PO 06/05/17 21:00 07/05/17 20:59 Potassium Chloride/Dextrose/ Sod Cl 1,000 ml @ 75 mls/hr [id number] IV 06/05/17 20:00 07/05/17 19:59 06/06/17 10:06 75 MLS/HR Acetaminophen (Tylenol Tab) 650 mg Q4H PRN PO 06/05/17 18:30 07/05/17 18:29 Non-Formulary Medication (Patient'S Own Controlled Med) 1 ea DAILY PO 06/06/17 09:00 06/20/17 08:59 Ondansetron HCl (Zofran Inj) 4 mg Q6H PRN IV 06/06/17 07:00 07/06/17 06:59 Physical Exam Vital Signs (Past 24 Hrs): Date Time Temp Pulse Resp B/P (MAP) Pulse Ox O2 Delivery O2 Flow Rate FiO2 06/06/17 12:00 Room Air 06/06/17 11:38 37.1 86 18 92/53 (66) 97 Room Air 06/06/17 08:00 Room Air 06/06/17 07:40 37.1 106 18 117/66 (83) 97 Room Air 06/06/17 04:00 Room Air 06/06/17 02:51 36.1 120 24 129/64 (85) 96 Room Air 06/05/17 23:59 Room Air 06/05/17 23:50 36.7 86 18 96/57 (70) 99 Room Air 06/05/17 20:00 Room Air 06/05/17 19:50 37.2 92 18 100/65 (77) 96 Room Air 06/05/17 19:17 82 21 120/62 98 06/05/17 18:02 95 Room Air 06/05/17 17:04 102 20 135/78 95 Room Air 06/05/17 16:21 103 06/05/17 15:35 94 Room Air 06/05/17 15:35 37.3 100 24 126/83 94 Room Air Physical Exam: Constitutional: appearance nourished, healthy and normal Ears, Nose, Mouth and Throat: mucous membranes moist, no injection and skin normal, eyes normal Cardiovascular: normal S-1 and S-2 and regular rate and rhythm Respiratory: clear to auscultation (CTA) and no rales, ronchi or wheeze Musculoskeletal: no peripheral edema and good distal pulses Skin: no stigmata of neurocutaneous disease noted and normal and intact Eyes: extraocular muscles intact (EOMI) and pupils equal, round and reactive to light (PERRL) NEUROLOGIC EXAMINATION: Mental status: Alert and interactive Oriented to full date and location Oriented to person Speech fluent with no evidence of aphasia Cranial Nerves smile eye brow level smile symm Reflexes: Deep tendon reflexes were symmetrical and graded 2/5. Plantar responses were flexor. Sensory: cool or light touch Coordination: finger to nose no bi pass Gait/Stance: Posture sitting up in bed Motor: Negative for pronator drift of out stretched arms with eyes closed. Strength: biceps triceps deltoids hand business technology teacher bilaterally 5/5, hip flex patellar plantar flex ext 5/5 Laboratory Results Past 24 Hours: 06/06/17 06:00 Red Blood Count 3.99, Mean Corpuscular Volume 87.0, Mean Corpuscular Hemoglobin 30.1, Mean Corpuscular Hemoglobin Concent 34.6, Mean Platelet Volume 8.9, Neutrophils (%) (Auto) 79.2, Lymphocytes (%) (Auto) 15.0, Monocytes (%) (Auto) 4.6, Eosinophils (%) (Auto) 0.8, Basophils (%) (Auto) 0.2, Neutrophils # (Auto) 4.85, Lymphocytes # (Auto) 0.92, Monocytes # (Auto) 0.28, Eosinophils # (Auto) 0.05, Basophils # (Auto) 0.01 06/06/17 06:00 Test 06/05/17 15:45 06/05/17 16:37 06/05/17 17:30 06/06/17 06:00 Urine Color YELLOW Urine Appearance CLEAR (CLEAR) Urine pH 6.0 (4.5-7.5) Urine Specific [address] 1.023 (1.000-1.030) Urine Protein NEG (NEG) Urine Glucose (UA) NEG (NEG) Urine Ketones NEG (NEG) Urine Occult Blood NEG (NEG) Urine Nitrite NEG (NEG) Urine Bilirubin NEG (NEG) Urine Urobilinogen NEG (NEG) Urine Leukocyte Esterase NEG (NEG) Urine Opiates Screen NEG (NEG) Urine Methadone, Qualitative POS (NEG) Urine Barbiturates NEG (NEG) Urine Phencyclidine (PCP) Level NEG (NEG) Ur Amphetamine/Methamphetamine POS (NEG) MDMA (Ecstasy) Screen NEG (NEG) Urine Benzodiazepines Screen NEG (NEG) Urine Cocaine Metabolite NEG (NEG) Urine Marijuana (THC) NEG (NEG) Erythrocyte Sedimentation Rate 12 mm/hr (0-21) Thyroid Stimulating Hormone (TSH) 2.560 uIu/ml (0.300-4.500) C-Reactive Protein 0.52 mg/dl (0-0.29) Human Chorionic Gonadotropin, Qual NEG (NEG) [place] Level 0.6 mMOL/L (0.6-1.2) Cyclic Citrullinated Peptide IgG Ab < 0.40 U/mL (0-4.99) White Blood Count 6.12 K/uL (4.8-10.8) Red Blood Count 3.99 M/uL (4.2-5.4) Hemoglobin 12.0 g/dL (12.0-16.0) Hematocrit 34.7 % (37-47) Mean Corpuscular Volume 87.0 fL (80-100) Mean Corpuscular Hemoglobin 30.1 pg (25-34) Mean Corpuscular Hemoglobin Concent 34.6 g/dl (32-36) Platelet Count 293 K/uL (130-400) Mean Platelet Volume 8.9 fL (7.4-10.4) Neutrophils (%) (Auto) 79.2 % Lymphocytes (%) (Auto) 15.0 % Monocytes (%) (Auto) 4.6 % Eosinophils (%) (Auto) 0.8 % Basophils (%) (Auto) 0.2 % Neutrophils # (Auto) 4.85 K/uL (1.4-6.5) Lymphocytes # (Auto) 0.92 K/uL (1.2-3.4) Monocytes # (Auto) 0.28 K/uL (0.11-0.59) Eosinophils # (Auto) 0.05 K/uL (0-0.5) Basophils # (Auto) 0.01 K/uL (0-0.2) RDW Standard Deviation 51.3 fL (36.4-46.3) RDW Coefficient of Variation 15.9 % (11.5-14.5) Immature Granulocyte % (Auto) 0.2 % Immature Granulocyte # (Auto) 0.01 K/uL (0.00-0.02) Anion Gap 5.0 mmol/L (3-11) Est Creatinine Clear Calc Drug Dose 67.4 ml/min Estimated GFR () 92.9 Estimated GFR (Non- 80.2 BUN/Creatinine Ratio 7.8 (10-20) Calcium Level 8.7 mg/dl (8.5-10.1) Magnesium Level 2.2 mg/dl (1.8-2.4) Total Bilirubin 0.4 mg/dl (0.2-1) Aspartate Amino Transf (AST/SGOT) 20 U/L (15-37) Alanine Aminotransferase (ALT/SGPT) 20 U/L (12-78) Alkaline Phosphatase 67 U/L (45-117) Total Protein 7.1 gm/dl (6.4-8.2) Albumin 3.7 gm/dl (3.4-5.0) Globulin 3.4 gm/dl (2.5-4.0) Albumin/Globulin Ratio 1.1 (0.9-2) Imaging CT head- Normal noncontrast head CT. Impression 32 year old female s/p multiple seizures Plan 1. Trileptal 600 mg BID 2. level for Trileptal ordered 3. methaph. positive preliminary testing 4. outpatient MRI brain with and without- no focus of seizure activity 5. previous EEG -no seizure spikes noted general slowing 6. will need out patient monitoring 72 hour EEG 7. EEG- done pending read I have seen and discussed above patient with Dr Steve Bray, neurology Situation reviewed patient and significant other interviewed Story suggests sseizures but there are confounding variables that suggest potential nonepileptic events agree with checking trileptal level continuing dose and would schedule for outpaitent 72 hour eeg on discharge current eeg was not interpretable due to movement arefacts but a repeat study is unlikely to reveal anything that would change the current plans if events continue the only aeds would be vimpat or zonegran as she has "failed " or had intolerance of all others to date save for the current tripeptal She may well need referral to epilepsy center for inpatient monitoring Steve Bray MD
[2017-06-06] MEDS: LITHIUM CARBONATE 300 MG TAB PO SCH (19:18)
[2017-06-06] MEDS: LORAZEPAM 2 MG/ML 1 ML VIAL IV PRN (19:18)
--- NOTE | 2017-06-06 20:13 | Progress Note ---
Medicine Progress Note Date & Time of Visit: Jun 06, 2017 at 20:07. Subjective Patient had recurrent episode of breakthrough seizure early in the morning Was given Ativan, which aborted the episode This morning the patient is drowsy but easily awakened Oriented 3 States she feels tired but otherwise denies headache, chest pain, shortness of breath, any other pain Hand, elbow joints and knee joints that painful today Denies other symptoms Objective Last 8 Hrs Date Time Temp Pulse Resp B/P (MAP) Pulse Ox O2 Delivery O2 Flow Rate FiO2 06/06/17 19:44 37.2 79 16 112/64 (80) 99 Room Air 06/06/17 16:15 37.1 86 16 113/70 (84) 98 Room Air 06/06/17 16:00 97 Room Air Physical Exam: General-oriented 3, drowsy not in distress speaking in sentences Eyes- anicteric Neck- supple, no JVD Lungs- clear breath sounds bilaterally, no rales no wheezes Heart- regular rhythm; no murmur, normal rate Abdomen- normal bowel sounds, soft, nontender, nondistended Extremities- no pretibial edema, no calf tenderness; peripheral pulses intact Neuro- alert, oriented x 3; no gross focal motor or sensory deficits Skin- warm & dry Laboratory Results: Last 24 Hours Test 06/06/17 06:00 06/06/17 16:04 White Blood Count 6.12 K/uL Red Blood Count 3.99 M/uL Hemoglobin 12.0 g/dL Hematocrit 34.7 % Mean Corpuscular Volume 87.0 fL Mean Corpuscular Hemoglobin 30.1 pg Mean Corpuscular Hemoglobin Concent 34.6 g/dl Platelet Count 293 K/uL Mean Platelet Volume 8.9 fL Neutrophils (%) (Auto) 79.2 % Lymphocytes (%) (Auto) 15.0 % Monocytes (%) (Auto) 4.6 % Eosinophils (%) (Auto) 0.8 % Basophils (%) (Auto) 0.2 % Neutrophils # (Auto) 4.85 K/uL Lymphocytes # (Auto) 0.92 K/uL Monocytes # (Auto) 0.28 K/uL Eosinophils # (Auto) 0.05 K/uL Basophils # (Auto) 0.01 K/uL RDW Standard Deviation 51.3 fL RDW Coefficient of Variation 15.9 % Immature Granulocyte % (Auto) 0.2 % Immature Granulocyte # (Auto) 0.01 K/uL Sodium Level 140 mmol/L Potassium Level 3.6 mmol/L Chloride Level 113 mmol/L Carbon Dioxide Level 22 mmol/L Anion Gap 5.0 mmol/L Blood Urea Nitrogen 7 mg/dl Creatinine 0.93 mg/dl Est Creatinine Clear Calc Drug Dose 67.4 ml/min Estimated GFR () 92.9 Estimated GFR (Non- 80.2 BUN/Creatinine Ratio 7.8 Random Glucose 104 mg/dl Calcium Level 8.7 mg/dl Magnesium Level 2.2 mg/dl Total Bilirubin 0.4 mg/dl Aspartate Amino Transf (AST/SGOT) 20 U/L Alanine Aminotransferase (ALT/SGPT) 20 U/L Alkaline Phosphatase 67 U/L Total Protein 7.1 gm/dl Albumin 3.7 gm/dl Globulin 3.4 gm/dl Albumin/Globulin Ratio 1.1 Assessment & Plan 32-year-old female with a history of seizures, narcotic abuse on methadone, smoking, anxiety depression, bipolar disorder, Presenting with breakthrough seizures today. BREAKTHROUGH SEIZURES Holding usual Trileptal 600 mg twice daily Transition to Keppra 500 mg IV every 12 [place] level normal Trileptal level pending Neurologist consulted Recommend continued observation Keppra 500 mg IV twice daily If seizures continue to recur, possible options would be Vimpat or Zonegran May need 72 hour EEG upon discharge May need referral to an epilepsy center upon discharge BILATERAL HAND, ELBOW, SWELLING Rule out RA ESR normal, CRP elevated at 0.5 CCP antibodies negative, rheumatoid factor pending DIANA pending Seems to be improved today Question possible lithium side effect, however lithium level is normal and apparently patient has been taking this for years May need referral to rheumatology if persistent HISTORY OF NARCOTIC ABUSE ON METHADONE No signs of withdrawal Continue usual methadone 90 mg p.o. daily Follows with methadone clinic SMOKING Smokes 1 pack per day Nicotine patch daily HISTORY OF ANXIETY AND DEPRESSION Mood at baseline Continue lithium 300 mg twice daily Continue Remeron 45 mg daily Gabapentin 600 mg 3 times daily Monitor DVT prophylaxis SCDs for now Consider heparin if with prolonged hospitalization Disposition Usually lives with family at home Anticipate discharge home medically stable and cleared by neurology Current Inpatient Medications: Current Inpatient Medications Medications (Trade) Dose Ordered Sig/Zayra Route Start Time Stop Time Status Last Admin Dose Admin Lorazepam (Ativan Inj) 1 mg Q1H PRN IV 06/05/17 18:30 07/05/17 18:29 06/06/17 02:48 1 MG Methadone HCl (Methadone HCl) 90 mg QAM PO 06/06/17 09:00 06/20/17 08:59 06/06/17 09:40 90 MG Nicotine (Nicoderm Cq 21MG Patch) 1 patch QAM TD 06/06/17 09:00 07/06/17 08:59 06/06/17 09:41 1 PATCH Miscellaneous (Remove Nicoderm Patch) 1 ea HS N/A 06/05/17 21:00 07/05/17 20:59 Gabapentin (Neurontin Tab) 600 mg TID PO 06/05/17 21:00 07/05/17 20:59 06/06/17 13:37 600 MG Mirtazapine (Remeron Tab) 45 mg HS PO 06/05/17 21:00 07/05/17 20:59 Potassium Chloride/Dextrose/ Sod Cl 1,000 ml @ 75 mls/hr [id number] IV 06/05/17 20:00 07/05/17 19:59 06/06/17 10:06 75 MLS/HR Acetaminophen (Tylenol Tab) 650 mg Q4H PRN PO 06/05/17 18:30 07/05/17 18:29 Non-Formulary Medication (Patient'S Own Controlled Med) 1 ea DAILY PO 06/06/17 09:00 06/20/17 08:59 Ondansetron HCl (Zofran Inj) 4 mg Q6H PRN IV 06/06/17 07:00 07/06/17 06:59 Oxcarbazepine (Trileptal Tab) 600 mg BID PO 06/06/17 21:00 07/06/17 20:59 Lorazepam (Ativan Inj) 0.5 mg Q4H PRN IV 06/06/17 18:30 07/06/17 18:29 06/06/17 19:18 0.5 MG [place] Carbonate ([place] Carbonate Tab) 300 mg BID PO 06/06/17 18:45 07/06/17 18:44 06/06/17 19:18 300 MG
[2017-06-06] MEDS: MIRTAZAPINE TAB 15 MG TAB PO SCH (20:51)
[2017-06-06] MEDS: OXCARBAZEPINE 150 MG TAB PO SCH (20:52)
[2017-06-06] MEDS ORDERED: OXCARBAZEPINE 150 MG TAB PO SCH (21:00)
[2017-06-06] MEDS ORDERED: LORAZEPAM 2 MG/ML 1 ML VIAL IV STA (21:07)
[2017-06-07] MEDS: D5NSS + 20MEQ KCL 1,000 ML IV SCH ×2 (00:01→12:09)
[2017-06-07 03:30] VITALS: BP 100/59; PULSE 84; TEMP 37.2; O2SAT 98
[2017-06-07] MEDS: LORAZEPAM 2 MG/ML 1 ML VIAL IV PRN ×3 (06:42→14:48)
--- NOTE | 2017-06-07 07:55 | ELECTROENCEPHALOGRAPH REPORT ---
REQUESTING PHYSICIAN: Steve Bray MD CLINICAL DIAGNOSIS: Seizure-like activity. EEG DIAGNOSIS: Very technically limited EEG due to patient movement during the entire recording. No clear epileptiform discharges are seen. Interpretation: The study is severely limited by movement artefacts A clear alpha rhythm cannot be determined nor can theta or delta activity All that can be stated is that there is are clear potentially epileptogenic patterns. A repeat study would be recommended if the level of patient cooperation can be improved. MTDD
[2017-06-07 08:05] VITALS: BP 131/69; PULSE 71; TEMP 36.7; O2SAT 95
[2017-06-07 08:05] LABS: BASO % 0.7 %; BASO ABS # 0.03 K/uL (0-0.2); EOS % 4.8 %; EOS ABS # 0.22 K/uL (0-0.5); HEMATOCRIT 33.9 % (37-47); HEMOGLOBIN 11.2 g/dL (12.0-16.0); IG# 0.01 K/uL (0.00-0.02); LYMPH % 46.1 %; MEAN CELL VOLUME 89.7 fL (80-100); MEAN CORPUSCULAR HEMOGLOBIN 29.6 pg (25-34); MONO % 10.1 %; MONO ABS # 0.46 K/uL (0.11-0.59); NEUT % 38.1 %; NEUT ABS # 1.74 K/uL (1.4-6.5); PLATELET COUNT 271 K/uL (130-400); RED CELL DISTRIBUTION WIDTH CV 16.4 % (11.5-14.5); RED CELL DISTRIBUTION WIDTH SD 54.4 fL (36.4-46.3); WHITE BLOOD COUNT 4.56 K/uL (4.8-10.8)
[2017-06-07] MEDS: GABAPENTIN 600 MG TAB PO SCH ×2 (08:57→13:51)
[2017-06-07] MEDS: LITHIUM CARBONATE 300 MG TAB PO SCH (08:57)
[2017-06-07] MEDS: NICOTINE 21 MG/24 HR TDSY TD SCH (08:58)
[2017-06-07] MEDS: METHADONE ORAL SOLN 2 MG/1ML PO SCH (08:58)
[2017-06-07] MEDS: OXCARBAZEPINE 150 MG TAB PO SCH (08:58)
--- NOTE | 2017-06-07 10:49 | Progress Note ---
Subjective Date of Service: Jun 07, 2017. Subjective Pt evaluation today including: conversation w/ patient, physical exam, lab review, review of studies, review of inpatient medication list Saw/examined the patient in room 234 No problems/issues to note at this time She feels much better and has not had a seizure since the morning of 06/06 States that Ativan helps and would like it for discharge Swelling of hands improved, but pain persists Problem List Medical Problems: (1) Change in mental status Status: Acute (2) Medication reaction Status: Acute (3) Status: Acute (4) Seizure Status: Acute Review of Systems Constitutional: No fever, No chills Respiratory: No cough, No sputum, No shortness of breath Cardiac: No chest pain, No edema, No palpitations Abdomen: No pain, No nausea, No vomiting, No diarrhea Musculoskeletal: + joint pain (bilateral hands), + swelling Psychiatric: No depression symptoms, No anxiety, No insomnia Heme: No abnormal bleeding/bruising Medications Current Inpatient Medications Medications (Trade) Dose Ordered Sig/Zayra Route Start Time Stop Time Status Last Admin Dose Admin Lorazepam (Ativan Inj) 1 mg Q1H PRN IV 06/05/17 18:30 07/05/17 18:29 06/06/17 02:48 1 MG Methadone HCl (Methadone HCl) 90 mg QAM PO 06/06/17 09:00 06/20/17 08:59 06/07/17 08:58 90 MG Nicotine (Nicoderm Cq 21MG Patch) 1 patch QAM TD 06/06/17 09:00 07/06/17 08:59 06/07/17 08:58 1 PATCH Miscellaneous (Remove Nicoderm Patch) 1 ea HS N/A 06/05/17 21:00 07/05/17 20:59 06/06/17 20:53 1 EA Gabapentin (Neurontin Tab) 600 mg TID PO 06/05/17 21:00 07/05/17 20:59 06/07/17 08:57 600 MG Mirtazapine (Remeron Tab) 45 mg HS PO 06/05/17 21:00 07/05/17 20:59 06/06/17 20:51 45 MG Potassium Chloride/Dextrose/ Sod Cl 1,000 ml @ 75 mls/hr [id number] IV 06/05/17 20:00 07/05/17 19:59 06/07/17 00:01 75 MLS/HR Acetaminophen (Tylenol Tab) 650 mg Q4H PRN PO 06/05/17 18:30 07/05/17 18:29 Non-Formulary Medication (Patient'S Own Controlled Med) 1 ea DAILY PO 06/06/17 09:00 06/20/17 08:59 Ondansetron HCl (Zofran Inj) 4 mg Q6H PRN IV 06/06/17 07:00 07/06/17 06:59 Oxcarbazepine (Trileptal Tab) 600 mg BID PO 06/06/17 21:00 07/06/17 20:59 06/07/17 08:58 600 MG Lorazepam (Ativan Inj) 0.5 mg Q4H PRN IV 06/06/17 18:30 07/06/17 18:29 06/07/17 06:42 0.5 MG [place] Carbonate ([place] Carbonate Tab) 300 mg BID PO 06/06/17 18:45 07/06/17 18:44 06/07/17 08:57 300 MG Objective Vital Signs Date Time Temp Pulse Resp B/P (MAP) Pulse Ox O2 Delivery O2 Flow Rate FiO2 06/07/17 08:05 36.7 71 18 131/69 (89) 95 06/07/17 04:00 Room Air 06/07/17 03:30 37.2 84 17 100/59 (73) 98 Room Air 06/07/17 00:00 Room Air 06/06/17 23:10 36.2 81 16 99/60 (73) 97 Room Air 06/06/17 20:00 Room Air 06/06/17 19:44 37.2 79 16 112/64 (80) 99 Room Air 06/06/17 16:15 37.1 86 16 113/70 (84) 98 Room Air 06/06/17 16:00 97 Room Air 06/06/17 12:00 Room Air 06/06/17 11:38 37.1 86 18 92/53 (66) 97 Room Air Physical Exam General Appearance: no apparent distress Eyes: normal inspection Respiratory/Chest: chest non-tender, lungs clear, normal breath sounds, no respiratory distress, no accessory muscle use Cardiovascular: regular rate, rhythm, no edema, no murmur Extremities: + pertinent finding (swelling of hands improved; pain with scrap baler strength) Neurologic/Psychiatric: no motor/sensory deficits, alert, normal mood/affect Laboratory Results Last 24 Hours Test 06/06/17 16:04 06/07/17 07:29 White Blood Count 4.56 K/uL Red Blood Count 3.78 M/uL Hemoglobin 11.2 g/dL Hematocrit 33.9 % Mean Corpuscular Volume 89.7 fL Mean Corpuscular Hemoglobin 29.6 pg Mean Corpuscular Hemoglobin Concent 33.0 g/dl Platelet Count 271 K/uL Mean Platelet Volume 9.0 fL Neutrophils (%) (Auto) 38.1 % Lymphocytes (%) (Auto) 46.1 % Monocytes (%) (Auto) 10.1 % Eosinophils (%) (Auto) 4.8 % Basophils (%) (Auto) 0.7 % Neutrophils # (Auto) 1.74 K/uL Lymphocytes # (Auto) 2.10 K/uL Monocytes # (Auto) 0.46 K/uL Eosinophils # (Auto) 0.22 K/uL Basophils # (Auto) 0.03 K/uL RDW Standard Deviation 54.4 fL RDW Coefficient of Variation 16.4 % Immature Granulocyte % (Auto) 0.2 % Immature Granulocyte # (Auto) 0.01 K/uL Magnesium Level 2.0 mg/dl Assessment and Plan This is a 32 year old female with a PMH of epilepsy and partial complex seizures , hx. of narcotic abuse on methadone, tobacco use disorder, bipolar disorder, depression/anxiety - presents with a breakthrough seizure prior to arrival on 06/05 and one on the morning of 06/06 while inpatient. Hx. of Epilepsy Multiple Breakthrough Seizures - patient taking Trileptal 600mg BID as outpatient - she was compliant with the medication; had seizures even while on this - had a breakthrough seizure on 06/06 - started on Keppra initially; now stopped due to side effects in the past - EEG - artifact movements - will likely need a 72 hour EEG as outpatient - may need Epilepsy center referral as outpatient - Trileptal level is pending - if seizures recur, may need Vimpat or Zonegran Bilateral Hand, Elbow swelling - improved - CCP negative, rheumatoid factor pending - mild elevation of CRP, normal ESR - other labs pending - the swelling has improved; c/o tenderness - will discharge to PCP and possible outpatient rheumatology referral needed Hx. of Narcotic Abuse - patient is on methadone chronically - continue current dose and outpatient methadone clinic Tobacco Use Disorder - smokes 1PPD - currently on a nicotine patch - counseled on cessation; will need further counseling as outpatient Hx. of Bipolar, Depression/Anxiety/Mood Disorder - continue home regimen of [place], Remeron and Gabapentin DVT ppx - SCDs d/c home when cleared by neurology
[2017-06-07 11:38] VITALS: BP 120/78; PULSE 95; TEMP 37.2; O2SAT 99
[2017-06-07 13:31] LABS: ANA SCREEN TC 249X NEGATIVE (NEGATIVE)
[2017-06-07] MEDS ORDERED: LITH1TAB16 PO (14:46)
[2017-06-07] MEDS ORDERED: ATV5 PO (14:50)
--- NOTE | 2017-06-07 14:53 | Discharge Instructions ---
Discharge Instructions Date of Service Jun 07, 2017. Admission Reason for Admission: Seizure Discharge Discharge Diagnosis / Problem: Seizures Discharge Goals Goal(s): Decrease discomfort, Improve function, Diagnostic testing, Therapeutic intervention Activity Recommendations Activity Limitations: per Instructions/Follow-up section Lifting Limitations: none Exercise/Sports Limitations: none May Resume Sexual Activity: when tolerated Shower/Bathe: no limitations Driving or Machine Use: no driving/heavy machinery use . Instructions / Follow-Up Instructions / Follow-Up Please follow-up with Dr. Luciano on June 10 at 10:45AM * Continue taking your Trileptal as prescribed * You will be given a short course of Ativan; this is not preventing your seizures - please follow-up with your primary care or psychiatrist for further input * You must follow-up with neurology as an outpatient Current Hospital Diet Patient's current hospital diet: Regular Diet Discharge Diet Recommended Diet: Regular Diet Pending Studies Studies pending at discharge: no Medical Emergencies . Who to Call and When: Medical Emergencies: If at any time you feel your situation is an emergency, please call 911 immediately. . Non-Emergent Contact Non-Emergency issues call your: Primary Care Provider, Neurologist . . "Provider Documentation" section prepared by Balta Borrego. . [place] Drug Monitoring Program Search Results: patient reviewed within database, no issues identified
--- NOTE | 2017-06-07 14:54 | Discharge Summary ---
Discharge Summary Date of Service Jun 07, 2017. Discharge Summary Admission Date: Jun 05, 2017 at 17:42 Discharge Date: Jun 07, 2017 Discharge Disposition: Home Principal Diagnosis: Hx. of Epilepsy Multiple Breakthrough Seizures Bilateral Hand, Elbow swelling - improved Hx. of Narcotic Abuse Tobacco Use Disorder Hx. of Bipolar, Depression/Anxiety/Mood Disorder Medication Reconciliation New Medications: Lorazepam (Lorazepam) 0.5 Mg Tab 0.5 MG PO Q6 PRN for Anxiety/Agitation, #10 TABS Continued Medications: Famotidine (Pepcid) 20 Mg Tab 20 MG PO DAILY PRN for Indigestion, TAB Gabapentin (Gabapentin) 600 Mg Tab 600 MG PO TID [place] Carbonate ([place] Carbonate) 300 Mg Tab 1 TAB PO BID for 30 Days, #60 TAB 1 Refill Methadone Hcl (Methadone Hcl Intensol) 10 Mg/Ml Con 90 MG PO DAILY Mirtazapine (Remeron) 30 Mg Tab 45 MG PO HS, TAB Oxcarbazepine (Trileptal) 300 Mg Tab 600 MG PO BID, TAB Admission Information HPI (per Admitting provider): 32-year-old female with a history of seizures, narcotic abuse on methadone, smoking, anxiety depression, bipolar disorder, Presenting with breakthrough seizures today. Follows with Dr. Puga for primary care, Dr. Crow for neurology, methadone clinic. Patient is apparently doing well until around 1 PM today while at home patient was noted to have fallen on her buttocks, was found to be staring and was having twitching on her upper extremities. This lasted for about 5 minutes and subsided. After about 45 minutes the patient was noted to be having blank stares around 2 minutes. Later on, playing on the couch, patient was noted to have an episode of generalized tonic-clonic seizure, with stiffening of all extremities, jerking movements. No vomiting, incontinence noted. This lasted for several minutes until ambulance arrived. She was then brought to the ER, and patient was noted to be somnolent. After a few minutes, the patient was noted to be awake alert and oriented again. CT head negative for acute process Care physician Dr. freitas, called Dr. Crow patient's neurologist who advised Keppra IV 500 mg twice daily. On my exam, patient was sitting up in bed, alert, oriented 3 answers all questions appropriately. She reports some bilateral lower extremity pain, mild. She also reports a few week history of bilateral hand joints, elbows, knees and ankle stiffness upon waking up in the morning as well as swelling lasting the whole day. Her primary care doctor, Dr. Puga, was planning to perform initial tests to rule out RA. Otherwise patient denies any other symptoms. She denies alcohol abuse, admits to smoking cigarettes. Also uses methadone 90 mg solution daily and follows at the hospital clinic. Physical Exam (per Admitting): General Appearance: WD/WN, no apparent distress Head: normocephalic, atraumatic Eyes: normal inspection, PERRL, EOMI, sclerae normal ENT: normal ENT inspection, hearing grossly normal, pharynx normal Neck: supple, no adenopathy, thyroid normal, no JVD, trachea midline Respiratory/Chest: chest non-tender, lungs clear, normal breath sounds Cardiovascular: regular rate, rhythm, no edema, no JVD, no murmur Abdomen/GI: normal bowel sounds, non tender, soft Back: normal inspection, no CVA tenderness Extremities/Musculoskelatal: normal inspection, no calf tenderness, normal capillary refill, no pedal edema, normal range of motion, non-tender, + pertinent finding (Positive for bilateral hand joints having mild warmth mild edema mild tenderness, seen with bilateral elbows and knees) 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 of narcotic abuse on methadone, tobacco use disorder, bipolar disorder, depression/anxiety - presents with a breakthrough seizure prior to arrival on 06/05 and one on the morning of 06/06 while inpatient. Hx. of Epilepsy Multiple Breakthrough Seizures - patient taking Trileptal 600mg BID as outpatient - she was compliant with the medication; had seizures even while on this - had a breakthrough seizure on 06/06 - started on Keppra initially; now stopped due to side effects in the past - EEG - artifact movements - will likely need a 72 hour EEG as outpatient - may need Epilepsy center referral as outpatient - Trileptal level is pending - if seizures recur, may need Vimpat or Zonegran Bilateral Hand, Elbow swelling - improved - CCP negative, rheumatoid factor pending - mild elevation of CRP, normal ESR - other labs pending - the swelling has improved; c/o tenderness - will discharge to PCP and possible outpatient rheumatology referral needed Hx. of Narcotic Abuse - patient is on methadone chronically - continue current dose and outpatient methadone clinic Tobacco Use Disorder - smokes 1PPD - currently on a nicotine patch - counseled on cessation; will need further counseling as outpatient Hx. of Bipolar, Depression/Anxiety/Mood Disorder - continue home regimen of [place], Remeron and Gabapentin DVT ppx - SCDs d/c home when cleared by neurology Total time spent on discharge = 35 minutes This includes examination of the patient, discharge planning, medication reconciliation, and communication with other providers. Discharge Instructions Please follow-up with Dr. Luciano on June 10 at 10:45AM * Continue taking your Trileptal as prescribed * You will be given a short course of Ativan; this is not preventing your seizures - please follow-up with your primary care or psychiatrist for further input * You must follow-up with neurology as an outpatient
--- NOTE | 2017-06-07 14:59 | Neurology Progress Notes ---
Neurology Progress Note Date of Service Jun 07, 2017. Sana Jameson is a 32 year old female with a H seizures, narcotic abuse on methadone, smoking, anxiety depression, bipolar disorder. She presented to the ED with breakthrough seizure She states she has been taking her Trileptal 600 mg BID. She has not had another seizure since her last office visit. she had fallen on her buttock and was found to be staring and was having twitching on her upper extremities. This lasted for about 5 minutes and subsided. The about 45 minutes later she was noted to be having blank stares around 2 minutes. then she was on the couch and was noted to have an episode of generalized tonic- clonic seizure, with stiffening of all extremities, jerking movements. which lasted several minutes until the ambulance arrived. According to nursing she has been out of it until about 10:30 this am. She states she does not remember any of what happened prior to arrival at the ED in fact she thinks the seizures happened in the ED. According to report there was no incontinence or tongue biting, she was not ill or febrile. she reports today she is feeling much better. She is getting ativan 0.5 mg q 4 hours and her nerves are much better. Discussed out patient monitoring. Denies CP, SOB, abdominal pain, weakness, numbness tingling, N, V. Objective Date Time Temp Pulse Resp B/P (MAP) Pulse Ox O2 Delivery O2 Flow Rate FiO2 06/07/17 12:00 Room Air 06/07/17 11:38 37.2 95 20 120/78 (92) 99 Room Air 06/07/17 08:05 36.7 71 18 131/69 (89) 95 06/07/17 08:00 Room Air 06/07/17 04:00 Room Air 06/07/17 03:30 37.2 84 17 100/59 (73) 98 Room Air 06/07/17 00:00 Room Air 06/06/17 23:10 36.2 81 16 99/60 (73) 97 Room Air 06/06/17 20:00 Room Air 06/06/17 19:44 37.2 79 16 112/64 (80) 99 Room Air 06/06/17 16:15 37.1 86 16 113/70 (84) 98 Room Air 06/06/17 16:00 97 Room Air Last 24 Hours Test 06/06/17 16:04 06/07/17 07:29 White Blood Count 4.56 K/uL Red Blood Count 3.78 M/uL Hemoglobin 11.2 g/dL Hematocrit 33.9 % Mean Corpuscular Volume 89.7 fL Mean Corpuscular Hemoglobin 29.6 pg Mean Corpuscular Hemoglobin Concent 33.0 g/dl Platelet Count 271 K/uL Mean Platelet Volume 9.0 fL Neutrophils (%) (Auto) 38.1 % Lymphocytes (%) (Auto) 46.1 % Monocytes (%) (Auto) 10.1 % Eosinophils (%) (Auto) 4.8 % Basophils (%) (Auto) 0.7 % Neutrophils # (Auto) 1.74 K/uL Lymphocytes # (Auto) 2.10 K/uL Monocytes # (Auto) 0.46 K/uL Eosinophils # (Auto) 0.22 K/uL Basophils # (Auto) 0.03 K/uL RDW Standard Deviation 54.4 fL RDW Coefficient of Variation 16.4 % Immature Granulocyte % (Auto) 0.2 % Immature Granulocyte # (Auto) 0.01 K/uL Magnesium Level 2.0 mg/dl Imaging: no new imaging Exam: Gen: alert NAD CV RRR lungs course breath sounds walking in room Current Inpatient Medications Medications (Trade) Dose Ordered Sig/Zayra Route Start Time Stop Time Status Last Admin Dose Admin Lorazepam (Ativan Inj) 1 mg Q1H PRN IV 06/05/17 18:30 07/05/17 18:29 06/06/17 02:48 1 MG Methadone HCl (Methadone HCl) 90 mg QAM PO 06/06/17 09:00 06/20/17 08:59 06/07/17 08:58 90 MG Nicotine (Nicoderm Cq 21MG Patch) 1 patch QAM TD 06/06/17 09:00 07/06/17 08:59 06/07/17 08:58 1 PATCH Miscellaneous (Remove Nicoderm Patch) 1 ea HS N/A 06/05/17 21:00 07/05/17 20:59 06/06/17 20:53 1 EA Gabapentin (Neurontin Tab) 600 mg TID PO 06/05/17 21:00 07/05/17 20:59 06/07/17 13:51 600 MG Mirtazapine (Remeron Tab) 45 mg HS PO 06/05/17 21:00 07/05/17 20:59 06/06/17 20:51 45 MG Potassium Chloride/Dextrose/ Sod Cl 1,000 ml @ 75 mls/hr [id number] IV 06/05/17 20:00 07/05/17 19:59 06/07/17 12:09 75 MLS/HR Acetaminophen (Tylenol Tab) 650 mg Q4H PRN PO 06/05/17 18:30 07/05/17 18:29 Non-Formulary Medication (Patient'S Own Controlled Med) 1 ea DAILY PO 06/06/17 09:00 06/20/17 08:59 Ondansetron HCl (Zofran Inj) 4 mg Q6H PRN IV 06/06/17 07:00 07/06/17 06:59 Oxcarbazepine (Trileptal Tab) 600 mg BID PO 06/06/17 21:00 07/06/17 20:59 06/07/17 08:58 600 MG Lorazepam (Ativan Inj) 0.5 mg Q4H PRN IV 06/06/17 18:30 07/06/17 18:29 06/07/17 14:48 0.5 MG [place] Carbonate ([place] Carbonate Tab) 300 mg BID PO 06/06/17 18:45 07/06/17 18:44 06/07/17 08:57 300 MG Impression 32 year old female s/p multiple seizures Plan 1. Trileptal 600 mg BID 2. level for Trileptal ordered 3. methaph. positive preliminary testing 4. outpatient MRI brain with and without- no focus of seizure activity 5. previous EEG -no seizure spikes noted general slowing 6. will need out patient monitoring 72 hour EEG 7. EEG- no epileptic spikes 8. small amount of ativan 0.5 mg 10 tablet max. no further will be given I have seen and discussed above patient with Dr Steve Bray, neurology Patient seen and intrviewed much improved on ativan and no more event but we cannot condone this as an rx for seizures and her psychiatrist and pain management group will have to approve continue to be suspicious of non epileptogenic events and manipulative behavior and will get the outpatient testing as outlined first but suspect she will be back with more events and eventually need inpatient epilepsy center monitoring to settle the questions For discharge today follow up as above Steve Bray MD
[2017-06-07 15:12] VITALS: BP 120/78; PULSE 95; TEMP 37.2; O2SAT 99
== END 2017-06-07 15:30 | disposition home or self-care (01) | DRG 101 ==
LOC: EDBD 15:34 → C.EDB 15:36 → C.2T 17:42 → EDBEDREQ 18:28 → ENRESERV 18:43 → C.2T 20:09
PROVIDERS: ADMIT Internal Medicine; ATTEND Family Medicine
DX: G40.909 Epilepsy, unspecified, not intractable, without status epilepticus (principal); M25.442 Effusion, left hand; M25.441 Effusion, right hand; M25.422 Effusion, left elbow; M25.421 Effusion, right elbow; F11.10 Opioid abuse, uncomplicated; F31.9 Bipolar disorder, unspecified; F41.9 Anxiety disorder, unspecified; F17.210 Nicotine dependence, cigarettes, uncomplicated; Z79.899 Other long term (current) drug therapy; Z88.8 Allergy status to other drugs, medicaments and biological substances